=== PATIENT | female | born 1990 | race Caucasian/White ===

== ENCOUNTER → 2025-05-08 | Outpatient (CLI) | payer OTHER, SELFPAY ==
--- OUTSIDE RECORDS SUMMARY | 2025-05-08 09:06 | XMS RPT_ITS | CCD ---
Author Organization [facility] Care Team Providers Care Overcoiler Name Role Phone Unavailable Primary Care Provider Eusebia Lake DO Primary Care Provider [phone] ELENA MONACO, DR SINGH Primary Care Physician [phone] SAGE RODRIGUES Attending Unavai lisa PARKER DO, DR SINGH Primary Care Unavaila Eusebia Orosco DO Primary Care Provider [phone] EUSEBIA PARKER Primary Care Unavailable CHINTAN DEAN Attending Unavailable HELADIO BOO Referring Unavailable HELADIO BOO Referring Unavailable EUSEBIA PARKER Primary Care Unavailable CELIO CAMARENA Attending Unavailable HELADIO BOO Referring Unavailable EUSEBIA PARKER Primary Care Unavailable CELIO CAMARENA Attending Unavailable HELADIO BOO Referring Unavailable EUSEBIA PARKER Primary Care Unavailable CELIO CAMARENA Attending Unavailable EUSEBIA PARKER Primary Care Unavailable CHINTAN DEAN Attending Unavailable HELADIO BOO Referring Unavailable Care Physician, No Primary Referring Unava ilable Katie Hidalgo Attending Unavailable Care Physician, No Primary Primary Care Unava ilable Care Physician, No Primary Primary Care Unava ilable Assessment, Health Risk Attending Abiola SOUZA, HONEY Banda Attending Claribel jaclyn PARKER DO, DR SINGH Primary Care Unavaila sourav PARKER DO, DR SINGH Primary Care Unavaila HELADIO Jenkins DO Admitting Unavailab HELADIO Buckley DO Attending Unavailab adonis VÁZQUEZ DO, KRISTIN Attending Unavailable ELENA MONACO, DR SINGH Primary Care Unavaila sourav PARKER DO, DR SINGH Primary Care Unavailflorence SOUZA, HONEY Banda Attending Claribel vaEusebia Zhou DO Primary Care Provider [phone] EUSEBIA PARKER Primary Care Unavailable SEAN DOMÍNGUEZ Attending Unavailable EUSEBIA PARKER Primary Care Unavailable JOEL PERERA Attending Unavailable EUSEBIA PARKER Primary Care Unavailable EUSEBIA PARKER Attending Unavailable Medications Current Medications Medication Drug Class(es) Dates Sig (Normalized) Sig (Original) calcium carbonate 400 mg / magnesium carbonate 200 mg oral tablet (2 sources) Start: 07-26-2024 take 1 tablet by mouth three times daily at mealtime calcium carbonate-magnesi um carbonate 200 mg-400 mg oral tablet Dose = 1 tab(s), Oral, TID, with meals, # 150 tab(s), 0 Refill(s) Start Date: 07/26/24 Status: Ordered Quantity: 150.0 Unit: tab(s) Repeat number: 1 cefuroxime 250 mg oral tablet (2 sources) Cephalosporin Antibacterial Start: 03-23-2025 End: 03-30-2025 take 1 tablet by mouth twice daily cefuroxime (Ceftin) 250 MG tablet Indications: Non-recurrent acute suppurative otitis media of left ear without spontaneous rupture of tympanic membrane Take 1 tablet (250 mg) by mouth 2 times daily for 7 days. 14 tablet 03/23/2025 03/30/2025 Active cephalexin 500 mg oral capsule (1 source) Cephalosporin Antibacterial Start: 08-10-2024 End: 08-17-2024 cephalexin 500 mg oral capsule Dose : 500 mg = 1 cap(s), Oral, QID, X 7 day(s), # 28 cap(s), 0 Refill(s), 08/17/24 8:00:00 AM EST, 119 Start Date: 08/10/24 Stop Date: 08/17/24 Status: Ordered Quantity: 28.0 Unit: cap(s) Repeat number: 1 docusate sodium 100 mg oral capsule (2 sources) Start: 07-27-2024 Colace 100 mg oral capsule Dose : 100 mg = 1 cap(s), Oral, BID, PRN Constipation, # 180 cap(s), 0 Refill(s), Pharmacy: [facility]/pharmacy #[id number], 163.5, cm, 07/26/24 3:48:00 EST, Height, kg, 07/26/24 3:48:00 EST, Dosing Weight Start Date: 07/27/24 Status: Ordered Quantity: 180.0 Unit: cap(s) Repeat number: 1 ferrous sulfate 325 mg oral tablet (2 sources) Start: 07-26-2024 ferrous sulfate 325 mg (65 mg elemental iron) oral tablet Dose : 325 mg = 1 tab(s), Oral, BID, # 100 tab(s), 0 Refill(s) Start Date: 07/26/24 Status: Ordered Quantity: 100.0 Unit: tab(s) Repeat number: 1 ibuprofen 600 mg oral tablet (2 sources) Nonsteroidal Anti-inflammatory Drug Start: 07-27-2024 End: 09-17-2024 IBU 600 mg oral tablet Dose : 600 mg = 1 tab(s), Oral, QID, # 40 tab(s), 0 Refill(s), 09/17/24 11:01:00 AM EST, Pharmacy: [facility]/pharmacy #[id number], 163.5, cm, 07/26/24 3:48:00 EST, Height, kg, 07/26/24 3:48:00 EST, Dosing Weight Start Date: 07/27/24 Stop Date: 09/17/24 Status: Ordered Quantity: 40.0 Unit: tab(s) Repeat number: 1 Magnesium (5 sources) Start: 10-15-2023 Magnesium 125 MG capsule 10/15/2023 Active Start: 10-15-2023 Magnesium 125 MG capsule Multiple Vitamin (MULTI-AV MIN DAILY PO) (5 sources) Multiple Vitamin (MULTI-VITAMIN DAILY PO) Take by mouth. Active Multiple Vitamin (MULTI-VITAMIN DAILY PO) Take by mouth. 0 Active AD oral tablet (2 sources) Start: 07-26-2024 take 1 tablet by mouth once daily AD oral tablet Dose = 1 tab(s), Oral, Daily, # 30 tab(s), 0 Refill(s) Start Date: 07/26/24 Status: Ordered Quantity: 30.0 Unit: tab(s) Repeat number: 1 Vitamin D with Minerals oral tablet (2 sources) Start: 07-26-2024 take 1 tablet by mouth once daily Vitamin D with Minerals oral tablet Dose = 1 tab(s), Oral, qDay, # 30 tab(s), 0 Refill(s) Start Date: 07/26/24 Status: Ordered Quantity: 30.0 Unit: tab(s) Repeat number: 1 Completed/Discontinued Medications Medication Drug Class(es) Dates Sig (Normalized) Sig (Original) 24 hr buPROPion hydrochloride 150 mg extended release oral tablet (4 sources) Aminoketone Start: 12-28-2022 End: 01-03-2024 take 1 tablet by mouth once daily in the morning buPROPion XL (Wellbutrin XL) 150 MG 24 hr tablet Indications: Recurrent major depressive disorder, in full remission (HCC) Take 1 tablet (150 mg) by mouth every morning. Do not crush, chew, or split. 30 tablet 0 12/28/2022 01/03/2024 Discontinued (Med list cleanup) Start: 06-30-2022 End: 11-02-2022 take 1 tablet by mouth once daily in the morning buPROPion XL (Wellbutrin XL) 300 MG 24 hr tablet Indications: Moderate episode of recurrent major depressive disorder (HCC) take 1 tablet by mouth every morning 90 tablet 2 11/02/2022 Active traZODone hydrochloride 50 mg oral tablet (4 sources) Serotonin Reuptake Inhibitor Start: 12-28-2022 End: 01-03-2024 take 1 tablet by mouth once daily traZODone (Desyrel) 50 MG tablet Indications: Psychophysiological insomnia Take 1 tablet (50 mg) by mouth Nightly. 90 tablet 2 12/28/2022 01/03/2024 Discontinued (Med list cleanup) Start: 06-01-2022 End: 12-04-2022 take 1 tablet by mouth once daily in the evening traZODone (Desyrel) 50 MG tablet Indications: Psychophysiological insomnia take 1 tablet by mouth every evening 90 tablet 2 12/04/2022 Active Problems Problem Classification Problem Date Documented Date Episodic/Chronic Disorders of teeth and jaw (2 sources) Pain of left temporomandibular joint; Translations: [Arthralgia of left temporomandibular joint] Onset: 03-11-2025 03-11-2025 Episodic Liveborn (1 source) Born by normal vaginal delivery; Translations: [Single liveborn infant, delivered vaginally] Onset: 07-29-2024 Episodic Miscellaneous mental health disorders (8 sources) Psychophysiologic insomnia; Translations: [Psychophysiologic insomnia] Onset: 06-30-2022 06-30-2022 Chronic Mood disorders (8 sources) Recurrent major depressive episodes, moderate ; Translations: [Major depressive disorder, recurrent, moderate] Onset: 06-30-2022 Chronic Nutritional deficiencies (7 sources) Vitamin D deficiency; Translations: [Vitamin D deficiency, unspecified] Onset: 08-24-2017 05-26-2022 Chronic Other complications of (1 source) Excessive growth affecting management of mother; Translations: [Maternal care for excessive growth, third trimester, fetus 1] Onset: 07-26-2024 Episodic Other female genital disorders (1 source) Noninflammatory disorder of the vagina; Translations: [Other specified noninflammatory disorders of vagina] Onset: 08-09-2024 Episodic Other and delivery including normal (5 sources) Delivery normal; Translations: [Encounter for full-term uncomplicated delivery] Onset: 07-26-2024 Episodic Comment on above: System added from do cumentation. Status documented as Yes on Admission Other screening for suspected conditions (not mental disorders or infectious disease) (6 sources) Patient encounter status; Translations: [Encounter for screening for malignant neoplasm of skin] Onset: 01-01-2025 01-17-2024 Episodic Otitis media and related conditions (4 sources) Acute suppurative otitis media without spontaneous rupture of ear drum; Translations: [Acute suppurative otitis media without spontaneous rupture of ear drum, left ear] Onset: 03-23-2025 03-23-2025 Episodic Residual codes; unclassified (1 source) Gestation period, 40 weeks; Translations: [40 weeks gestation of ] Onset: 07-26-2024 Episodic Residual codes; unclassified (1 source) RhD negative; Translations: [Unspecified blood type, Rh negative] Onset: 07-26-2024 Episodic Urinary tract infections (1 source) Urinary tract infectious disease; Translations: [Urinary tract infection, site not specified] Onset: 08-09-2024 Episodic Results Test Name Value Interpretation Reference Range Facility 36on 03-23-2025 36 Noted Normal [facility] 36 S: Patient spoke wit h [facility] nurse regarding lt ear pain and muffled B: Onset of symptoms/concern start of 3rd week A: She states she went to initially and they told her related to TMJ. Patient reports she does have a yellow drainage from that ear since last week. Patient denies any URI symptoms. R: POD appt today with Dr. Perera. Address provided to patient. Advised nothing inside the ear. Patient understands care advice. No further needs at this time. Patient instructed to call back with new or worsening symptoms. Reason for Disposition Pus or cloudy discharge from ear canal Protocols used: Ear - [id number] Normal [facility] Office Visiton 03-23-2025 Follow-up visit [id number] AnaJoanna barraza Neno 1990 F Date Provider Department [place] 03/23/2025 [id number][facility] Family History Problem Relation Age of Onset Pneumonia Father COPD Father Hypertension Father No Known Problems Brother Colon cancer Mother Cancer Mother Cancer Maternal Grandmother 50 Comments: Hodgkins Lymphoma Diabetes Father's Brother No Known Problems Sister Family Status - Relation Status Age at Father Brother Alive Mother Alive Maternal Grandmother Father's Brother Sister Alive Level of Service:26924 [place] OFFICE/OUTPATIENT ESTABLISHED LOW MDM 20 MIN Reason for Visit and Comments: Earache [[id number]] Normal [facility] Progress Noteon 03-23-2025 Progress Note [facility] [address] [place] [address] Dept: [phone] Dept Loc: [phone] Visit type: Established Patient Reason for Visit: Earache Assessment and Plan 1. Non-recurrent acute suppurative otitis media of left ear without spontaneous rupture of tympanic membrane - cefuroxime (Ceftin) 250 MG tablet; Take 1 tablet (250 mg) by mouth 2 times daily for 7 days., Starting Sun03/23/2025, Until Sun03/30/2025, Ana M Marshall was seen today for earache. Diagnoses and all orders for this visit: Non-recurrent acute suppurative otitis media of left ear without spontaneous rupture of tympanic membrane (Primary) - cefuroxime (Ceftin) 250 MG tablet; Take 1 tablet (250 mg) by mouth 2 times daily for 7 days. Pt has otitis media-left ear. Sent in ceftin. Rest, push fluids, call if no better Follow up if symptoms worsen or fail to improve. Subjective Earache Associated symptoms include ear discharge and hearing loss. Pertinent negatives include no abdominal pain, coughing, diarrhea, headaches, rhinorrhea, sore throat or vomiting. Pt is here for ear pain C/o left ear pain x 16 days Has some drainage with yellow drainage, mostly at night and when she wakes up in the morning No fever No tinnitus but has some decrease hearing in the left No sore throat, rhinitis. Has chronic sinus congestion in the morning She had a baby 8 months ago. She is pumping but has low supply and the baby is getting mostly formula She doesn't think she's Review of Systems Constitutional: Negative for chills and fever. HENT: Positive for ear discharge, ear pain and hearing loss. Negative for rhinorrhea, sneezing and sore throat. Respiratory: Negative for cough and shortness of breath. Cardiovascular: Negative for chest pain and leg swelling. Gastrointestinal: Negative for abdominal pain, constipation, diarrhea, nausea and vomiting. Genitourinary: Negative for dysuria and frequency. Musculoskeletal: Negative for arthralgias and back pain. Neurological: Negative for dizziness, syncope and headaches. Psychiatric/Behaviora l: Negative for dysphoric mood. The patient is not nervous/anxious. Allergies[1] Current Medications[2] Problem List[3] Social History Tobacco Use Smoking status: Never Smokeless tobacco: Never Substance Use Topics Alcohol use: Not Currently Alcohol/week: 2.0 standard drinks of alcohol Surgical History[4] Family History[5] Health Maintenance Topic Date Due HIV Screening Never done MMR Vaccines (1 of 1 - Standard series) Never done Varicella Vaccines (1 of 2 - 13+ 2-dose series) Never done Hepatitis C Screening Never done DTaP/Tdap/Td Vaccines (1 - Tdap) Never done Hepatitis B Vaccines (1 of 3 - 19+ 3-dose series) Never done Cervical Cancer Screening Never done COVID-19 Vaccine ( - season) Never done Influenza Vaccine (1) 04/13/2025 Depression Monitoring 07/04/2025 Zoster Vaccines (1 of 2) 02/08/2038 RSV Immunization for Adults (1 - 1-dose 75+ series) 02/08/2063 RSV Immunization under 20 Months Aged Out HIB Vaccines Aged Out IPV Vaccines Aged Out Hepatitis A Vaccines Aged Out Meningococcal Vaccine Aged Out Rotavirus Vaccines Aged Out HPV Vaccines Aged Out Pneumococcal Vaccine: Pediatrics (0 to 5 Years) and At-Risk Patients (6 to 49 Years) Aged Out Meningococcal B Vaccine Aged Out Objective BP 139/84 Pulse 86 SpO2 97% Physical Exam Constitutional: General: She is not in acute distress. HENT: Right Ear: Tympanic membrane normal. Ears: Comments: Left TM with bulging and cloudiness with yellow discoloration at the left lower part of the TM. No TM rupture Mouth/Throat: Mouth: Mucous membranes are moist. Pharynx: No oropharyngeal exudate. Cardiovascular: Rate and Rhythm: Normal rate and regular rhythm. Pulses: Normal pulses. Heart sounds: Normal heart sounds. Pulmonary: Effort: Pulmonary effort is normal. Breath sounds: Normal breath sounds. No wheezing. Abdominal: General: Abdomen is flat. Bowel sounds are normal. Palpations: Abdomen is soft. Tenderness: There is no abdominal tenderness. Musculoskeletal: Right lower leg: No edema. Left lower leg: No edema. Neurological: Mental Status: She is alert. Data Reviewed and Summarized Labs: Lab Results Component Value Date ALT 01/03/2024 AST 01/03/2024 Imaging/Testing: Joel Perera MD [1] No Known Allergies [2] Current Outpatient Medications Medication Sig Dispense Refill Magnesium 125 MG capsule Multiple Vitamin (MULTI-VITAMIN DAILY PO) Take by mouth. cefuroxime (Ceftin) 250 MG tablet Take 1 tablet (250 mg) by mouth 2 times daily for 7 days. 14 tablet 0 No current facility-administered medications for this visit. [3] Patient Active Problem List Diagnosis Vitamin D deficiency Moderate episode of (more content not included)... Normal [facility] CNOVon 03-11-2025 CNOV Office Visit ([facility]) JOANNA FAIR ([id number]) 1990 F Date Time Provider Department 03/11/25 5:30 PM SEAN DOMÍNGUEZ During your visit today, we recorded the following information about you: Temperature Pulse Respiration Blood pressure 98.8 degrees 79/minute 18/minute 130/76 Weight Last Period 113 kg 07/25/25 Sean Domínguez MD 03/11/2025 5:56 PM Signed [facility] Subjective Joanna Fair is a 35 year old female. Patient presents with: Ear Pain: Left ear pain x 4 days Left ear pain: Duration: 5 days Location: left ear Character: aching and throbbing Radiation: to the jaw/eye Aggravating: chewing, touching Relieving: Pain relievers: Motrin Associated: muffled hearing Pertinent negatives: Denies nasal congestion, rhinorrhea, sore throat, fever, chills, otorrhea No recent swimming. Ear Pain Review of Systems Objective BP 130/76 Pulse 79 Temp 37.1 ?C (98.8 ?F) Resp 18 Wt 113 kg (249 lb 1.9 oz) LMP 03/06/2025 SpO2 98% Physical Exam Constitutional: General: She is not in acute distress. HENT: Right Ear: Tympanic membrane and ear canal normal. Left Ear: Tympanic membrane and ear canal normal. Tenderness (Tender left temporomandibular joint) present. Nose: No congestion. Right Sinus: No maxillary sinus tenderness or frontal sinus tenderness. Left Sinus: No maxillary sinus tenderness or frontal sinus tenderness. Mouth/Throat: Mouth: Mucous membranes are moist. Pharynx: Posterior oropharyngeal erythema present. No oropharyngeal exudate. Eyes: Extraocular Movements: Extraocular movements intact. Conjunctiva/sclera: Conjunctivae normal. Pupils: Pupils are equal, round, and reactive to light. Cardiovascular: Rate and Rhythm: Normal rate and regular rhythm. Heart sounds: No murmur heard. Pulmonary: Effort: No respiratory distress. Breath sounds: No wheezing, rhonchi or rales. Musculoskeletal: Cervical back: Neck supple. Lymphadenopathy: Cervical: No cervical adenopathy. Neurological: Mental Status: She is alert. {ASSESSMENT/PLAN: 1. Arthralgia of left temporomandibular joint - ICD9: 524.62, ICD10: M26.622 Normal canal and middle ear exam. Suspect TMJ arthralgia. Treat with ibuprofen (breast feeding, may reduce milk production). Sean Domínguez MD Differential Diagnoses - TMJ arthralgia is more likely for the following reason(s): suggested by HANDP - Eustachian tube dysfunction - Otitis media/externa is less likely for the following reason(s): Normal exam Procedures Allergies As of Date: 03/11/2025 (Not on File) Date Reviewed: 03/11/2025 Reviewed by: Jacque Isidro MA - Fully Assessed Reason for Visit: Ear Pain [817] Cmt: Left ear pain x 4 days Primary Visit Diagnosis:Arthralgia of left temporomandibular joint [M26.622] Problem List As Of Date: 03/11/2025 (None) Level of Service: OFFICE/OUTPATIENT [facility] 30 MINUTES [24636] Encounter Status:Closed by SEAN DOMÍNGUEZ on 03/11/25 Normal [facility] Office Visiton 01-01-2025 Follow-up visit [id number] Joanna Fair 1990 F Date Provider Department Center 01/01/2025 EUSEBIA RAYO [facility] Family History Problem Relation Age of Onset Pneumonia Father COPD Father Hypertension Father No Known Problems Brother Colon cancer Mother Cancer Mother Cancer Maternal Grandmother 50 Comments: Hodgkins Lymphoma Diabetes Father's Brother No Known Problems Sister Family Status - Relation Status Age at Father Brother Alive Mother Alive Maternal Grandmother Father's Brother Sister Alive Level of Service:91486 [place] PERIODIC PREVENTIVE MED EST PATIENT 40-64YRS Reason for Visit and Comments: Annual Exam [83] Normal [facility] Progress Noteon 01-01-2025 Progress Note [facility] - [address] [facility] [address] Visit type: Established Patient Reason for Visit: Annual Exam Assessment and Plan Diagnoses and all orders for this visit: Well adult exam Screening for diabetes mellitus - Hemoglobin A1c; Future - Basic metabolic panel; Future Screening, lipid - Lipid panel; Future Encouraged avoidance of tobacco and alcohol, safe sexual practice. Healthy diet with plenty of fruits, vegetables, whole grains, and lean proteins. Exercise 3-5 times per week for 30-45 minutes. Wear seatbelts. Wear sunscreen. Reviewed age appropriate screening tests. No follow-ups on file. 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 HENT: Negative for congestion, ear pain, hearing loss, postnasal drip, sore throat and trouble swallowing. Eyes: Negative for discharge, itching and visual disturbance. Respiratory: Negative for cough, shortness of breath and wheezing. Cardiovascular: Negative for chest pain, palpitations and leg swelling. Gastrointestinal: Negative for abdominal pain, constipation, diarrhea, nausea and vomiting. Endocrine: Negative for cold intolerance, heat intolerance, polydipsia, polyphagia and polyuria. Genitourinary: Negative for difficulty urinating, frequency, urgency, vaginal bleeding, vaginal discharge and vaginal pain. Musculoskeletal: Negative for arthralgias, back pain, joint swelling and myalgias. Skin: Negative for color change, rash and wound. Neurological: Negative for dizziness, tremors, seizures, speech difficulty, weakness, numbness and headaches. Hematological: Negative for adenopathy. Does not bruise/bleed easily. Psychiatric/Behaviora l: Negative for agitation, decreased concentration, dysphoric mood and sleep disturbance. The patient is not nervous/anxious. Allergies[1] Current Medications[2] Medical History[3] Social History[4] Surgical History[5] Surgical History[6] Family History[7] Objective BP 110/80 Pulse 97 Temp 36.8 ?C (98.2 ?F) (Temporal) Ht 5' 4 (1.626 m) Wt 243 lb 12.8 oz (111 kg) SpO2 97% BMI 41.85 kg/m? Physical Exam Vitals and nursing note reviewed. Constitutional: General: She is not in acute distress. Appearance: Normal appearance. She is not ill-appearing. HENT: Head: Normocephalic and atraumatic. Right Ear: Tympanic membrane, ear canal and external ear normal. Left Ear: Tympanic membrane, ear canal and external ear normal. Nose: Nose normal. Mouth/Throat: Mouth: Mucous membranes are dry. Eyes: Extraocular Movements: Extraocular movements intact. Conjunctiva/sclera: Conjunctivae normal. Pupils: Pupils are equal, round, and reactive to light. Cardiovascular: Rate and Rhythm: Normal rate and regular rhythm. Heart sounds: No murmur heard. No friction rub. Pulmonary: Effort: Pulmonary effort is normal. No respiratory distress. Breath sounds: Normal breath sounds. No stridor. No wheezing, rhonchi or rales. Chest: Chest wall: No tenderness. Abdominal: General: Abdomen is flat. Bowel sounds are normal. There is no distension. Palpations: Abdomen is soft. There is no mass. Tenderness: There is no abdominal tenderness. There is no guarding or rebound. Hernia: No hernia is present. Musculoskeletal: General: Normal range of motion. Cervical back: Normal range of motion and neck supple. Right lower leg: No edema. Left lower leg: No edema. Skin: General: Skin is warm and dry. Neurological: General: No focal deficit present. Mental Status: She is alert and oriented to person, place, and time. Psychiatric: Mood and Affect: Mood normal. Behavior: Behavior normal. Thought Content: Thought content normal. Judgment: Judgment normal. Data Reviewed POCT: Labs: Imaging/Testing: Chart Clean Up: There are no discontinued medications. Eusebia Parker, 01/01/2025 2:53 PM [1] No Known Allergies [2] Current Outpatient Medications: Magnesium 125 MG capsule, , Disp: , Rfl: Multiple Vitamin (MULTI-VITAMIN DAILY PO), Take by mouth., Disp: , Rfl: [3] Past Medical History: Diagnosis Date Anxiety 06/2021 Depression 06/2021 10/15/23 [4] Social History Socioeconomic History Marital status: Tobacco Use Smoking status: Never Smokeless tobacco: Never Substance and Sexual Activity Alcohol use: Not Currently Alcohol/week: 2.0 standard drinks of alcohol Drug use: No Sexual activity: Yes Partners: Male control/protection: Condom Male Comment: Currently [5] Past Surgical History: Procedure Laterality Date GYNECOLOGIC CRYOSURGERY 02/15/2012 POLYPECTOMY 2011 (more content not included)... Normal [facility] CTPCRon 08-11-2024 C. trachomatis Interp Normal See CT Interp N [facility] Comment on above: Result Comment: C. t rachomatis DNA not detected. Specimen is presumptive negative for C. trachomatis. A negative result does not preclude C. trachomatis infection because results depend on adequate specimen collection, absence of inhibitors, and sufficient DNA to be detected. See CT Interp N Performed By: #### N GPCR1, CTPCR ####[place] [address] C.trachomatis PCR Negative Normal Negative [facility] Comment on above: Result Comment: Caballero sport tube received with two swabs. Review collection procedure. Inappropriate collection may cause aberrant results. Molecular (PCR) assay performed on the Dandy Jazmin 4800 system. Performed By: #### N GPCR1, CTPCR ####[place] [address] Chlam Source Cervix Normal [facility] Comment on above: Performed By: #### N GPCR1, CTPCR ####[place] [address] [id number] 08-11-2024 GC PCR Source Cervix Normal [facility] Comment on above: Result Comment: Caballero sport tube received with two swabs. Review collection procedure. Inappropriate collection may cause aberrant results. Performed By: #### N GPCR1, CTPCR ####[place] [address] N. gonorrhoeae (PCR) Negative Normal Negative [facility] Comment on above: Result Comment: Mole cular (PCR) assay performed on the Dandy Jazmin 4800 System. Performed By: #### N GPCR1, CTPCR ####[place] [address] N. gonorrhoeae Interp Normal See NG Interp N [facility] Comment on above: Result Comment: N. g onorrhoeae DNA not detected. Specimen is presumptive negative for N. gonorrhoeae. A negative result does not preclude Neisseria gonorrhoeae infection because results depend on adequate specimen collection, absence of inhibitors, and sufficient DNA to be detected. See NG Interp N Performed By: #### N GPCR1, CTPCR ####[place] [address] .Auto Diffon 08-09-2024 Basophil, Absolute 0.0 10 3/mcL Normal 0.0-0.2 [facility] Comment on above: Performed By: #### G FR, MORPH, BMP, MDW, CBC, ANEU, ADIFF #### [facility] [address] [place], [place] [address] Basophils/100 WBC (Bld) 0.2 % Normal 0.0-2.5 [facility] Comment on above: Performed By: #### G FR, MORPH, BMP, MDW, CBC, ANEU, ADIFF #### [address] [address] Eosinophil, Absolute 0.0 10 3/mcL Normal 0.0-0.7 [facility] Comment on above: Performed By: #### G FR, MORPH, BMP, MDW, CBC, ANEU, ADIFF #### [address] [address] Eosinophils/100 WBC (Bld) 0.3 % Normal 0.0-7.0 [facility] Comment on above: Performed By: #### G FR, MORPH, BMP, MDW, CBC, ANEU, ADIFF #### [address] [address] Lymphocyte, Absolute 1.7 10 3/mcL Normal 0.9-4.3 [facility] Comment on above: Performed By: #### G FR, MORPH, BMP, MDW, CBC, ANEU, ADIFF #### [address] [address] Lymphocytes/100 WBC (Bld) 11.9 % Low 20.0-40.0 [facility] Comment on above: Performed By: #### G FR, MORPH, BMP, MDW, CBC, ANEU, ADIFF #### [address] [address] Monocyte, Absolute 1.5 10 3/mcL High 0.1-1.4 [facility] Comment on above: Performed By: #### G FR, MORPH, BMP, MDW, CBC, ANEU, ADIFF #### [address] [address] Monocytes/100 WBC (Bld) 10.2 % Normal 2.0-13.0 [facility] Comment on above: Performed By: #### G FR, MORPH, BMP, MDW, CBC, ANEU, ADIFF #### [address] [address] Neutrophils/100 WBC (Bld) 77.4 % High 50.0-75.0 [facility] Comment on above: Performed By: #### G KLAUDIA ROJAS BMP, VLADIMIR, CBC, ANEU, ADIFF #### [place] [address] [place], [place] [address] .GFRon 08-09-2024 GFR 90 ml/min/1.73sqm Normal [facility] Comment on above: Result Comment: GFR Population mean for , Non- Americans Ages 20-29 = 116 mL/min/1.73 sq.m. Ages 30-39 = 107 mL/min/1.73 sq.m. Ages 40-49 = 99 mL/min/1.73 sq.m. Ages 50-59 = 93 mL/min/1.73 sq.m. Ages 60-69 = 85 mL/min/1.73 sq.m. Ages 70+ = 75 mL/min/1.73 sq.m. Chronic Kidney Disease: Less than 60 mL/min/1.73 square meters End Stage Renal Disease: Less than 15 mL/min/1.73 square meters Performed By: #### G , KLAUDIA, JOSEPH, VLADIMIR, CBC, ANEU, ADIFF #### [address] [address] GFR Non- 75 ml/min/1.73sqm Normal [facility] Comment on above: Result Comment: GFR Population mean for , Non- Americans Ages 20-29 = 116 mL/min/1.73 sq.m. Ages 30-39 = 107 mL/min/1.73 sq.m. Ages 40-49 = 99 mL/min/1.73 sq.m. Ages 50-59 = 93 mL/min/1.73 sq.m. Ages 60-69 = 85 mL/min/1.73 sq.m. Ages 70+ = 75 mL/min/1.73 sq.m. Chronic Kidney Disease: Less than 60 mL/min/1.73 square meters End Stage Renal Disease: Less than 15 mL/min/1.73 square meters Performed By: #### G , KLAUDIA, JOSEPH, VLADIMIR, CBC, ANEU, ADIFF #### [place] [address] .MDWon 08-09-2024 Monocyte Distribution Width 24.63 High 0.00-20.00 [facility] Comment on above: Result Comment: The predictive value of MDW for identifying sepsis in patients with hematological abnormalities has not been established Performed By: #### G FR, MORPH, BMP, MDW, CBC, ANEU, ADIFF #### [place] [address] .Morphon 08-09-2024 Platelet Estimate Normal Normal [facility] Comment on above: Performed By: #### G FR, MORPH, BMP, MDW, CBC, ANEU, ADIFF #### [place] [address] .NEUABSon 08-09-2024 Neutrophil, Absolute 11.2 10 3/mcL High 2.3-8.1 [facility] Comment on above: Performed By: #### G FR, MORPH, BMP, MDW, CBC, ANEU, ADIFF #### [place] [address] .Urinalysis Microscopic (AO) on 08-09-2024 UA Bacteria 4+ /hpf Abnormal [facility] Comment on above: Performed By: #### U A, UAMICAO ####[place] [address] UA RBC 0-5 Abnormal None Seen [facility] Comment on above: Performed By: #### U A, UAMICAO ####[place] [address] UA Squam Epithelial 0-5 Abnormal None Seen [facility] Comment on above: Performed By: #### U A, UAMICAO ####[place] [address] UA WBC LOADED Abnormal None Seen [facility] Comment on above: Performed By: #### U A, UAMICAO ####[place] [address] BMPon 08-09-2024 BUN/Creatinine Ratio 24 ratio Normal 7-27 [facility] Comment on above: Performed By: #### G FR, KLAUDIA, BMP, MDW, CBC, ANEU, ADIFF #### [address] [address] Calcium [Mass/Vol] 8.8 mg/dL Normal 8.4-10.2 [facility] Comment on above: Performed By: #### G FR, MORPH, BMP, MDW, CBC, ANEU, ADIFF #### [address] [address] Chloride [Moles/Vol] 104 mmol/L Normal 98-107 [facility] Comment on above: Performed By: #### G FR, KLAUDIA, BMP, MDW, CBC, ANEU, ADIFF #### [address] [address] CO2 [Moles/Vol] 27 mmol/L Normal 22-29 [facility] Comment on above: Performed By: #### G FR, KLAUDIA, BMP, MDW, CBC, ANEU, ADIFF #### [address] [address] Creatinine [Mass/Vol] 0.86 mg/dL Normal 0.55-1.02 [facility] Comment on above: Result Comment: Test ing performed on Siemens Dimension EXL analyzer using a modified kinetic Constance technique. Performed By: #### G FR, KLAUDIA, BMP, MDW, CBC, ANEU, ADIFF #### [address] [address] Electrolyte Balance 7.0 mEq/L Normal 4.0-15.0 [facility] Comment on above: Performed By: #### G FR, KLAUDIA, BMP, MDW, CBC, ANEU, ADIFF #### [address] [address] Glucose [Mass/Vol] 113 mg/dL High 70-105 [facility] Comment on above: Performed By: #### G FR, MORPH, BMP, MDW, CBC, ANEU, ADIFF #### [address] [address] Potassium [Moles/Vol] 4.7 mmol/L Normal 3.5-5.1 [facility] Comment on above: Performed By: #### G FR, MORPH, BMP, MDW, CBC, ANEU, ADIFF #### [address] [address] Sodium [Moles/Vol] 138 mmol/L Normal 136-145 [facility] Comment on above: Performed By: #### G FR, MORPH, BMP, MDW, CBC, ANEU, ADIFF #### [address] [address] Urea nitrogen [Mass/Vol] 21 mg/dL High 7-18 [facility] Comment on above: Performed By: #### G FR, MORPH, BMP, MDW, CBC, ANEU, ADIFF #### [address] [address] CBCon 08-09-2024 Erythrocyte distribution width (RBC) [Ratio] 14.5 % Normal 11.5-15.5 [facility] Comment on above: Performed By: #### G FR, MORPH, BMP, MDW, CBC, ANEU, ADIFF #### [address] [address] Hematocrit (Bld) [Volume fraction] 30.0 % Low 34.0-46.0 [facility] Comment on above: Performed By: #### G FR, MORPH, BMP, MDW, CBC, ANEU, ADIFF #### [address] [address] Hgb 10.1 G/dL Low 12.0-16.0 [facility] Comment on above: Performed By: #### G FR, MORPH, BMP, MDW, CBC, ANEU, ADIFF #### [address] [address] MCH (RBC) [Entitic mass] 28.9 pg Normal 27.0-33.0 [facility] Comment on above: Performed By: #### G FR, MORPH, BMP, MDW, CBC, ANEU, ADIFF #### [address] [address] MCHC 33.5 G/dL Normal 32.0-36.0 [facility] Comment on above: Performed By: #### G FR, MORPH, BMP, MDW, CBC, ANEU, ADIFF #### [address] [address] MCV (RBC) [Entitic vol] 86.3 fL Normal 80.0-99.0 [facility] Comment on above: Performed By: #### G FR, MORPH, BMP, MDW, CBC, ANEU, ADIFF #### [place] [address] Platelet 363 10 3/mcL Normal 150-450 [facility] Comment on above: Performed By: #### G FR, MORPH, BMP, MDW, CBC, ANEU, ADIFF #### [place] [address] Platelet mean volume (Bld) [Entitic vol] 7.8 fL Normal 6.6-10.5 [facility] Comment on above: Performed By: #### G FR, MORPH, BMP, MDW, CBC, ANEU, ADIFF #### [address] [address] RBC 3.48 10 6/mcL Low 4.10-5.30 [facility] Comment on above: Performed By: #### G FR, MORPH, BMP, MDW, CBC, ANEU, ADIFF #### [address] [address] WBC 14.5 10 3/mcL High 4.5-10.8 [facility] Comment on above: Performed By: #### G FR, MORPH, BMP, MDW, CBC, ANEU, ADIFF #### [place] [address] LABORATORYOrdered By: SYSTEM SYSTEM on 08-09-2024 Basophils (Bld) [#/Vol] 0.0 103/mcL Normal 0.0 - 0.2 10^3/mcL AO Workflow SS Basophils/100 WBC (Bld) 0.2 % Normal 0.0 - 2.5 % AO Workflow SS Calcium [Mass/Vol] 8.8 mg/dL Normal 8.4 - 10. 2 mg/dL AO ADM SS Chloride [Moles/Vol] 104 mmol/L Normal 98 - 10 7 mmol/L AO ADM SS CO2 [Moles/Vol] 27 mmol/L Normal 22 - 29 mmol/L AO ADM SS Creatinine [Mass/Vol] 0.86 mg/dL Normal 0.55 - 1.02 mg/dL AO ADM SS Comment on above: Interpretive Data: T esting performed on Siemens Dimension EXL analyzer using a modified kinetic Constance technique. Electrolyte Balance 7.0 mEq/L Normal 4.0 - 15 .0 mEq/L AO ADM SS Eosinophil, Absolute 0.0 103/mcL Normal 0.0 - 0 .7 10^3/mcL AO Workflow SS Eosinophils/100 WBC (Bld) 0.3 % Normal 0.0 - 7.0 % AO Workflow SS Erythrocyte distribution width (RBC) [Ratio] 14.5 % Normal 11.5 - 15.5 % AO Workflow SS GFR/1.73 sq M.predicted among blacks MDRD (S/P/Bld) [Vol rate/Area] 90 ml/min/1.73sqm Invalid Interpretation Code AO Chemistry S Comment on above: Interpretive Data: GFR Population mean for , Non- Americans Ages 20-29 = 116 mL/min/1.73 sq.m. Ages 30-39 = 107 mL/min/1.73 sq.m. Ages 40-49 = 99 mL/min/1.73 sq.m. Ages 50-59 = 93 mL/min/1.73 sq.m. Ages 60-69 = 85 mL/min/1.73 sq.m. Ages 70+ = 75 mL/min/1.73 sq.m. Chronic Kidney Disease: Less than 60 mL/min/1.73 square meters End Stage Renal Disease: Less than 15 mL/min/1.73 square meters GFR/1.73 sq M.predicted among non-blacks MDRD (S/P/Bld) [Vol rate/Area] 75 ml/min/1.73sqm Invalid Interpretation Code AO Chemistry S Comment on above: Interpretive Data: GFR Population mean for , Non- Americans Ages 20-29 = 116 mL/min/1.73 sq.m. Ages 30-39 = 107 mL/min/1.73 sq.m. Ages 40-49 = 99 mL/min/1.73 sq.m. Ages 50-59 = 93 mL/min/1.73 sq.m. Ages 60-69 = 85 mL/min/1.73 sq.m. Ages 70+ = 75 mL/min/1.73 sq.m. Chronic Kidney Disease: Less than 60 mL/min/1.73 square meters End Stage Renal Disease: Less than 15 mL/min/1.73 square meters Glucose [Mass/Vol] 113 mg/dL High 70 - 105 mg/dL AO ADM SS Hematocrit (Bld) [Volume fraction] 30.0 % Low 34.0 - 46.0 % AO Workflow SS Hemoglobin (Bld) [Mass/Vol] 10.1 G/dL Low 12.0 - 16.0 G/dL AO Workflow SS Lymphocytes (Bld) [#/Vol] 1.7 103/mcL Normal 0.9 - 4.3 10^3/mcL AO Workflow SS Lymphocytes/100 WBC (Bld) 11.9 % Low 20.0 - 40.0 % AO Workflow SS MCH (RBC) [Entitic mass] 28.9 pg Normal 27.0 - 33.0 pg AO Workflow SS MCHC 33.5 G/dL Normal 32.0 - 36.0 G/dL AO Workflow SS MCV (RBC) [Entitic vol] 86.3 fL Normal 80.0 - 99.0 fL AO Workflow SS Monocyte distribution width Auto (Bld) [Entitic vol] 24.63 1 High 0.00 - 20.00 AO Workflow SS Comment on above: Result Comment: The predictive value of MDW for identifying sepsis in patients with hematological abnormalities has not been established Monocytes (Bld) [#/Vol] 1.5 103/mcL High 0.1 - 1.4 10^3/mcL AO Workflow SS Monocytes/100 WBC (Bld) 10.2 % Normal 2.0 - 13.0 % AO Workflow SS Neutrophils (Bld) [#/Vol] 11.2 103/mcL High 2.3 - 8.1 10^3/mcL AO Workflow SS Neutrophils/100 WBC (Bld) 77.4 % High 50.0 - 75.0 % AO Workflow SS Platelet mean volume (Bld) [Entitic vol] 7.8 fL Normal 6.6 - 10.5 fL AO Workflow SS Platelets (Bld) [#/Vol] 363 103/mcL Normal 150 - 450 10^3/mcL AO Workflow SS Potassium [Moles/Vol] 4.7 mmol/L Normal 3.5 - 5.1 mmol/L AO ADM SS RBC (Bld) [#/Vol] 3.48 106/mcL Low 4.10 - 5.3 0 10^6/mcL AO Workflow SS Sodium [Moles/Vol] 138 mmol/L Normal 136 - 145 mmol/L AO ADM SS Urea nitrogen [Mass/Vol] 21 mg/dL High 7 - 18 mg/dL AO ADM SS Urea nitrogen/Creatinine [Mass ratio] 24 ratio Normal 7 - 27 ratio AO ADM SS WBC (Bld) [#/Vol] 14.5 103/mcL High 4.5 - 10.8 10^3/mcL AO Workflow SS LABORATORYOrdered By: Marycruz Maynard on 08-09-2024 Platelets LM Ql (Bld) Normal (08/09/24 4:25 PM) Normal AO Hematology S Appearance (U) Slightly Cloudy *ABN* (08/09/24 4:11 PM) Invalid Interpretation Code Clear AO Auto Urine SS Bacteria LM.HPF (Urine sed) [#/Area] 4 /[HPF] Invalid Interpretation Code AO Auto Urine SS Bilirubin Ql (U) Negative (08/09/24 4:11 PM) Normal Negative AO Auto Urine SS Color (U) Yellow (08/09/24 4:11 PM) Normal AO Auto Urine SS Glucose Test strip (U) [Mass/Vol] Negative Normal Negative AO Auto Urine SS Hemoglobin Auto test strip (U) [Mass/Vol] Small *ABN* (08/09/24 4:11 PM) Invalid Interpretation Code Negative AO Auto Urine SS Ketones Ql (U) Negative Normal Negative AO Auto Ur ine SS UA Leuk Est Moderate *ABN* (08/09/24 4:11 PM) Invalid Interpretation Code Negative AO Auto Urine SS UA Nitrite Positive *ABN* (08/09/24 4:11 PM) Invalid Interpretation Code Negative AO Auto Urine SS UA pH 6.0 (08/09/24 4:11 PM) Normal 5.0 - 8.0 AO Auto Urine SS UA Protein 100 mg/dL Invalid Interpretation Code Negative AO Auto Urine SS UA RBC 0-5 /HPF Invalid Interpretation Code None Seen AO Auto Urine SS UA Spec Grav 1.025 (08/09/24 4:11 PM) Normal 1.015-1.025 AO Auto Urine SS UA Specimen Type Clean Catch (08/09/24 4:11 PM) Normal AO Auto Urine SS UA Squam Epithelial 0-5 /HPF Invalid Interpretation Code None Seen AO Auto Urine SS UA Urobilinogen 0.2 E.U./dL Normal 0.2-1.0 AO Auto Urine SS WBC LM.HPF (Urine sed) [#/Area] LOADED /HPF Invalid Interpretation Code None Seen AO Auto Urine SS UAon 08-09-2024 Color (U) Yellow Normal [facility] Comment on above: Performed By: #### U A, UAMICAO #### [place] [address] Glucose (U) [Mass/Vol] Negative Normal Negative [facility] Comment on above: Performed By: #### U A, UAMICAO #### [place] [address] Ketones Ql (U) Negative Normal Negative [facility] Comment on above: Performed By: #### U A, UAMICAO #### [place] [address] UA Appear Slightly Cloudy Abnormal Clear [facility] Comment on above: Performed By: #### U A, UAMICAO #### [place] [address] UA Blood Small Abnormal Negative [facility] Comment on above: Performed By: #### U A, UAMICAO #### [place] [address] UA Leuk Est Moderate Abnormal Negative [facility] Comment on above: Performed By: #### U A, UAMICAO #### [place] [address] UA Nitrite Positive Abnormal Negative [facility] Comment on above: Performed By: #### U A, UAMICAO #### [place] [address] UA pH 6.0 Normal 5.0 - 8.0 [facility] Comment on above: Performed By: #### U A UAMICAO #### [place] [address] UA Protein 100 mg/dL Abnormal Negative [facility] Comment on above: Performed By: #### U A UAMICAO #### [place] [address] UA Spec Grav 1.025 Normal 1.015-1.025 [facility] Comment on above: Performed By: #### U A UAMICAO #### [place] [address] UA Specimen Type Clean Catch Normal [facility] Comment on above: Performed By: #### U A UAMICAO #### [place] [address] UA Urobilinogen 0.2 E.U./dL Normal 0.2-1.0 [facility] Comment on above: Performed By: #### U A UAMICAO #### [place] [address] Urobilinogen (U) [Mass/Vol] Negative Normal Negative [facility] Comment on above: Performed By: #### U A UAMICAO #### [address] 07-28-2024 Hematocrit (Bld) [Volume fraction] 24.9 % Low 34.0-46.0 [facility] Comment on above: Performed By: #### H H ####[place] [address] Hgb 8.4 G/dL Low 12.0-16.0 [facility] Comment on above: Performed By: #### H H ####[place] [address] LABORATORYOrdered By: SYSTEM SYSTEM on 07-28-2024 Hematocrit (Bld) [Volume fraction] 24.9 % Low 34.0 - 46.0 % AO Workflow SS Hemoglobin (Bld) [Mass/Vol] 8.4 G/dL Low 12.0 - 16.0 G/dL AO Workflow SS RPRon 07-28-2024 Reagin Ab RPR Ql (S) Non-Reactive Normal Non-Reactive [facility] Comment on above: Result Comment: The RPR test is a non-treponemal assay useful as an aid in the diagnosis of primary and secondary syphilis. It converts to positive generally within 2 weeks after the appearance of a lesion. This test is also useful for monitoring response to antibiotic therapy. A positive RPR screening test will be followed by the FTA ABS test. False positive RPR tests may occur in 1) patients with underlying autoimmune disorders, 2) elderly patients, 3) , and 4) other conditions with abnormal serum globulins. Performed By: #### A YAIR, ADIFF, CBC, ANEU, ABSGEL ####[place] [address]#### RPR ####[place] [address] .Auto Diffon 07-26-2024 Basophil, Absolute 0.1 10 3/mcL Normal 0.0-0.2 [facility] Comment on above: Performed By: #### A MAKEL, ADIFF, CBC, ANEU, ABSGEL ####[place] [address]#### RPR ####[place] [address] Basophils/100 WBC (Bld) 0.5 % Normal 0.0-2.5 [facility] Comment on above: Performed By: #### A BOGEL, ADIFF, CBC, ANEU, ABSGEL ####[place] [address]#### RPR ####[place] [address] Eosinophil, Absolute 0.0 10 3/mcL Normal 0.0-0.7 [facility] Comment on above: Performed By: #### A BOGEL, ADIFF, CBC, ANEU, ABSGEL ####[place] [address]#### RPR ####[address] [address] Eosinophils/100 WBC (Bld) 0.2 % Normal 0.0-7.0 [facility] Comment on above: Performed By: #### A BOGEL, ADIFF, CBC, ANEU, ABSGEL ####[place] [address]#### RPR ####[address] [address] Lymphocyte, Absolute 2.0 10 3/mcL Normal 0.9-4.3 [facility] Comment on above: Performed By: #### A BOGEL, ADIFF, CBC, ANEU, ABSGEL ####[place] [address]#### RPR ####[address] [address] Lymphocytes/100 WBC (Bld) 11.6 % Low 20.0-40.0 [facility] Comment on above: Performed By: #### A BOGEL, ADIFF, CBC, ANEU, ABSGEL ####[place] [address]#### RPR ####[address] [address] Monocyte, Absolute 1.2 10 3/mcL Normal 0.1-1.4 [facility] Comment on above: Performed By: #### A BOGEL, ADIFF, CBC, ANEU, ABSGEL ####[place] [address]#### RPR ####[address] [address] Monocytes/100 WBC (Bld) 7.0 % Normal 2.0-13.0 [facility] Comment on above: Performed By: #### A BOGEL, ADIFF, CBC, ANEU, ABSGEL ####[place] [address]#### RPR ####[address] [address] Neutrophils/100 WBC (Bld) 80.7 % High 50.0-75.0 [facility] Comment on above: Performed By: #### A MARIO MAZARIEGOSIFF, CBC, ANEU, ABSGEL ####[place] [address]#### RPR ####[address] [address] .NEUABSon 07-26-2024 Neutrophil, Absolute 14.3 10 3/mcL High 2.3-8.1 [facility] Comment on above: Performed By: #### A MARIO MAZARIEGOSIFF, CBC, ANEU, ABSGEL ####[place] [address]#### RPR ####[place] [address] ABO/Rh (Gel)on 07-26-2024 ABO/Rh Interp Negative Invalid Interpretation Code [facility] Comment on above: Performed By: #### A MARIO MAZARIEGOSIFF, CBC, ANEU, ABSGEL ####[place] [address]#### RPR ####[place] [address] ABS (Gel)on 07-26-2024 ABSC Interp (Gel) Negative Normal [facility] Comment on above: Performed By: #### A YAIR ADIFF, CBC, ANEU, ABSGEL ####[place] [address]#### RPR ####[place] [id number] CBCon 07-26-2024 Erythrocyte distribution width (RBC) [Ratio] 14.5 % Normal 11.5-15.5 [facility] Comment on above: Performed By: #### A MARIO MAZARIEGOSIFF, CBC, ANEU, ABSGEL ####[place] [address]#### RPR ####[place] [address] Hematocrit (Bld) [Volume fraction] 31.8 % Low 34.0-46.0 [facility] Comment on above: Performed By: #### A YAIR, ADIFF, CBC, ANEU, ABSGEL ####[place] [address]#### RPR ####[place] [address] Hgb 10.9 G/dL Low 12.0-16.0 [facility] Comment on above: Performed By: #### A YAIR, ADIFF, CBC, ANEU, ABSGEL ####[place] [address]#### RPR ####[place] [address] MCH (RBC) [Entitic mass] 29.6 pg Normal 27.0-33.0 [facility] Comment on above: Performed By: #### A MAKEL, ADIFF, CBC, ANEU, ABSGEL ####[place] [address]#### RPR ####[place] [address] MCHC 34.4 G/dL Normal 32.0-36.0 [facility] Comment on above: Performed By: #### A YAIR, ADIFF, CBC, ANEU, ABSGEL ####[place] [address]#### RPR ####[place] [address] MCV (RBC) [Entitic vol] 86.2 fL Normal 80.0-99.0 [facility] Comment on above: Performed By: #### A MAKEL, ADIFF, CBC, ANEU, ABSGEL ####[place] [address]#### RPR ####[place] [address] Platelet 210 10 3/mcL Normal 150-450 [facility] Comment on above: Performed By: #### A MARGUERITE MAZARIEGOS, CBC, ANEU, ABSGEL ####[place] [address]#### RPR ####[place] [address] Platelet mean volume (Bld) [Entitic vol] 9.0 fL Normal 6.6-10.5 [facility] Comment on above: Performed By: #### A MARGUERITE MAZARIEGOS, CBC, ANEU, ABSGEL ####[place] [id number]#### RPR ####[place] [address] RBC 3.69 10 6/mcL Low 4.10-5.30 [facility] Comment on above: Performed By: #### A MARGUERITE MAZARIEGOS, CBC, ANEU, ABSGEL ####[place] [id number]#### RPR ####[place] [address] WBC 17.7 10 3/mcL High 4.5-10.8 [facility] Comment on above: Performed By: #### A MARGUERITE MAZARIEGOS, CBC, ANEU, ABSGEL ####[place] [id number]#### RPR ####[place] [address] LABORATORYOrdered By: Jaki Guzman on 07-26-2024 ABO and Rh group Nom (Bld) Blood group O Rh(D) negative Invalid Interpretation Code AO BB Auto SS Blood group antibody screen Ql Negative ABSC (07/26/24 4:33 AM) Normal AO BB Auto SS LABORATORYOrdered By: SYSTEM SYSTEM on 07-26-2024 Basophils (Bld) [#/Vol] 0.1 103/mcL Normal 0.0 - 0.2 10^3/mcL AO Workflow SS Basophils/100 WBC (Bld) 0.5 % Normal 0.0 - 2.5 % AO Workflow SS Eosinophil, Absolute 0.0 103/mcL Normal 0.0 - 0 .7 10^3/mcL AO Workflow SS Eosinophils/100 WBC (Bld) 0.2 % Normal 0.0 - 7.0 % AO Workflow SS Erythrocyte distribution width (RBC) [Ratio] 14.5 % Normal 11.5 - 15.5 % AO Workflow SS Hematocrit (Bld) [Volume fraction] 31.8 % Low 34.0 - 46.0 % AO Workflow SS Hemoglobin (Bld) [Mass/Vol] 10.9 G/dL Low 12.0 - 16.0 G/dL AO Workflow SS Lymphocytes (Bld) [#/Vol] 2.0 103/mcL Normal 0.9 - 4.3 10^3/mcL AO Workflow SS Lymphocytes/100 WBC (Bld) 11.6 % Low 20.0 - 40.0 % AO Workflow SS MCH (RBC) [Entitic mass] 29.6 pg Normal 27.0 - 33.0 pg AO Workflow SS MCHC 34.4 G/dL Normal 32.0 - 36.0 G/dL AO Workflow SS MCV (RBC) [Entitic vol] 86.2 fL Normal 80.0 - 99.0 fL AO Workflow SS Monocytes (Bld) [#/Vol] 1.2 103/mcL Normal 0.1 - 1.4 10^3/mcL AO Workflow SS Monocytes/100 WBC (Bld) 7.0 % Normal 2.0 - 13.0 % AO Workflow SS Neutrophils (Bld) [#/Vol] 14.3 103/mcL High 2.3 - 8.1 10^3/mcL AO Workflow SS Neutrophils/100 WBC (Bld) 80.7 % High 50.0 - 75.0 % AO Workflow SS Platelet mean volume (Bld) [Entitic vol] 9.0 fL Normal 6.6 - 10.5 fL AO Workflow SS Platelets (Bld) [#/Vol] 210 103/mcL Normal 150 - 450 10^3/mcL AO Workflow SS RBC (Bld) [#/Vol] 3.69 106/mcL Low 4.10 - 5.3 0 10^6/mcL AO Workflow SS WBC (Bld) [#/Vol] 17.7 103/mcL High 4.5 - 10.8 10^3/mcL AO Workflow SS LABORATORYOrdered By: Dominic Wolfe on 07-26-2024 Reagin Ab RPR Ql (S) Non-Reactive 1 (07/26/24 4:33 AM) Normal Non-Reactive [facility]Sero SS Comment on above: Interpretive Data: T he RPR test is a non-treponemal assay useful as an aid in the diagnosis of primary and secondary syphilis. It converts to positive generally within 2 weeks after the appearance of a lesion. This test is also useful for monitoring response to antibiotic therapy. A positive RPR screening test will be followed by the FTA ABS test. False positive RPR tests may occur in 1) patients with underlying autoimmune disorders, 2) elderly patients, 3) , and 4) other conditions with abnormal serum globulins. LABORATORYOrdered By: Rajani Gustafson on 07-26-2024 ABO and Rh group Nom (Bld) O negative (07/26/24 3:48 AM) [facility] Group B Strep Date Performed 20240625 [facility] Group B Strep, External Negative (07/26/24 3:48 AM) [facility] Hepatitis B Date Performed [id number] [facility] Hepatitis B, External Negative (07/26/24 3:48 AM) [facility] HIV Antibodies, External Negative (07/26/24 3:48 AM) [facility] RPR, External Nonreactive (07/26/24 3:48 AM) [facility] Rubella, External Immune (07/26/24 3:48 AM) [facility] ABO/Rh (Gel)on 05-01-2024 ABO/Rh Interp Negative Invalid Interpretation Code [facility] Comment on above: Performed By: #### G , KLAUDIA, BMP, MDW, CBC, ANEU, ADIFF #### [facility] [address], [place] [address] ABS (Gel)on 05-01-2024 ABSC Interp (Gel) Negative Normal [facility] Comment on above: Performed By: #### G , KLAUDIA, JOSEPH, W, CBC, ANEU, ADIFF #### [facility] [address], [place] [address] LABORATORYOrdered By: Joey Gmable on 05-01-2024 ABO and Rh group Nom (Bld) Blood group O Rh(D) negative Invalid Interpretation Code AO BB Auto SS Blood group antibody screen Ql Negative ABSC (05/01/24 10:07 AM) Normal AO BB Auto SS Progress Noteon 02-21-2024 Regional Facilities Manager Authentication Interface Message Text [facility] MATERNAL MEDICINE - at [place] DR. CAMARENA OFFICE VISIT NOTE DOS: 02/21/2024 02/21/2024 Chief Complaint She presents for review of progress in thus far and for comprehensive review of her maternal -obstetric- risks in this . The reasons for the visit are as highlighted in the concluding summary communication to business systems manager which is my problem-based office review. History of Present Illness Joanna is a 34 y.o. female at 18w3d. Here for an office visit with was multifaceted and the history of present illness is itemized/organized under applicable individualized problem list assessments as listed below. Obstetric History OB History Para Term AB Living 1 SAB IAB Ectopic Multiple Live Births # Outcome Date GA Lbr Cj/2nd Weight Sex Type Anes PTL Lv 1 Current - I reviewed it at patient encounter and pertinent aspects are integrated into the below problem list-based assessment Past Medical History No past medical history on file. - I reviewed it at patient encounter and pertinent aspects are integrated into the below problem list-based assessment Social History - I reviewed it at patient encounter and pertinent aspects are integrated into the below problem list-based assessment Family History - I reviewed it at patient encounter, including screening genetic pedigree as available, and pertinent aspects are integrated into the below problem list-based assessment Medications and Allergies . No Known Allergies - I reviewed it at patient encounter and are integrated into the below problem list-based assessment. Allergies were reviewed Laboratory Studies and Imaging studies - I reviewed it at patient encounter and pertinent aspects are integrated into assessments. Vitals LMP 10/15/2023 - heart rate as per imaging report today, as applicable and available. ASSESSMENT AND PLAN After integrating maternal and obstetric and considerations, my recommendations are as assembled. Active Non-Hospital Problems Diagnosis Date Noted Care plan discussed with patient 02/21/2024 02/21/2024 - Office Visit - MD Felton: 18w3d . she decides against further genetic testing and will consider genetic testing by pool servicer, if merited. 2. Laboratory Tests to be ordered in your office: Hemoglobin A1c. 3. Follow-up: Follow-up ultrasound in 2 weeks to complete anatomy survey. 4. Imaging study recommended in the office: Ultrasound 32/36 weeks for interval growth assessment given limitations of central fundal height with BMI of 38 and additional risk for increased growth restriction given abnormal genetic testing. BP today will suggest possible stage I hypertension if subsequent blood pressures remain in the same range. She prefers imaging study in your office. 5. Antepartum surveillance: Weekly testing at 36 weeks based on AMA and BMI class II. 6. Delivery: Obstetric goal for vaginal delivery with section restricted to standard obstetric indications between at complete 'full-term' gestational window. We discussed that the final determinations on both the mode and timing of delivery may be impacted upon by how the health unfolds- at risk of obstetric complications. 7. Special Considerations: At an increased risk for genetic abnormalities-pediatr ician could arrange for genetic assessments as clinically merited after evaluation [] Medications Review - she is on: PNV 1 QD. ASA 81 mg. QD-is not on it and it was recommended and she will consider it but is not completely embracing of the recommendation. care, antepartum 02/21/2024 02/21/2024 - Office Visit - MD Felton: 18w3d . [] Care: => Stable Co-Morbidities: She is in excellent general health. No adverse life-style. => BP 138/65 - systolic blood pressure trending towards stage I hypertension. Labs: Hb 12.6 gm/dl on 01/23/2024. She provided no history of uterine contractions, leakage of fluid, or vaginal bleeding. Obesity, Class II, BMI 35-39.9 02/21/2024 02/21/2024 - Office Visit - MD Felton: 18w3d . [] Obesity: Her BMI is 38. To address its associated risks for gestational diabetes and preeclampsia, we discussed optimal gestational weight gain and recommendation for daily low-dose aspirin to mitigate the risk. Early HbA1c to exclude occult diabetes (value < 6.5 %) and glucose intolerance (value < 5.7 %) was explained. We also discussed the benefit of moderate exertion level activity 5 times a week - slowly building it up to 30 minutes. [] Risk for Infectious Diseases: We reviewed prevention strategies for maternal- At risk for genetic disorder 02/21/2024 02/21/2024 - Office Visit - MD Felton: 18w3d . [] Genetic Health: Review of concluded genetic testing occurred -NIPT-Aneuploidy revealed increased risk for trisomy 1 (more content not included)... Normal [facility] Hepatic function 2000 panelo n 01-04-2024 Albumin [Mass/Vol] 4.1 g/dL 3.6 - 5.1 g/dL [facility] Albumin/Globulin [Mass ratio] 1.5 {ratio} [facility] ALP [Catalytic activity/Vol] 51 U/L 31 - 125 U/L [facility] ALT [Catalytic activity/Vol] 19 U/L 6 - 29 U/L [facility] AST [Catalytic activity/Vol] 14 U/L 10 - 30 U/L [facility] Bilirubin [Mass/Vol] 0.5 mg/dL 0.2 - 1 .2 mg/dL [facility] Bilirubin.direct [Mass/Vol] 0.1 mg/dL < OR = 0.2 [facility] Bilirubin.indirect [Mass/Vol] 0.4 mg/dL [facility] Globulin (S) [Mass/Vol] 2.7 g/dL [facility] Protein [Mass/Vol] 6.8 g/dL 6.1 - 8.1 g/dL [facility] Nicotine Screen Bloodon 09-13 COTININE BLOOD <1.0 Normal . [facility] Comment on above: Result Comment: This test was developed and its performance characteristics determined by [facility]. It has not been cleared or approved by the Food and Drug Administration. Cotinine levels greater than 20.0 are consistent with the use of tobacco or tobacco cessation products. Performed at: [facility] [id number] Parking Supervisor: Shane Cordoba MD, Phone: [phone] Performed By: #### L 501.9985, L100.0500, L3600.3400, L500.4100, L500.4050 #### [facility] [address] [place], [place], [id number] NICOTINE BLOOD <1.0 Normal . [facility] Comment on above: Result Comment: This test was developed and its performance characteristics determined by [employer]. It has not been cleared or approved by the Food and Drug Administration. Nicotine levels greater than 2.0 are consistent with the use of tobacco or tobacco cessation products. Performed By: #### L 501.9985, L100.0500, L3600.3400, L500.4100, L500.4050 #### [facility] [address] [place], [address] CBC-Complete Blood Cnt No Di ffon 09-18-2023 Erythrocyte distribution width (RBC) [Ratio] 12.1 % Normal 11.6-14.6 [facility] Comment on above: Performed By: #### L 501.9985, L100.0500, L3600.3400, L500.4100, L500.4050 #### [facility] [address], [address] Hematocrit (Bld) [Volume fraction] 40.3 % Normal 37-47 [facility] Comment on above: Performed By: #### L 501.9985, L100.0500, L3600.3400, L500.4100, L500.4050 #### [facility] [address] [place], [place], [phone] (200) Hemoglobin (Bld) [Mass/Vol] 13.1 g/dL Normal 12.0-15.0 [facility] Comment on above: Performed By: #### L 501.9985, L100.0500, L3600.3400, L500.4100, L500.4050 #### [facility] [address] [place], [address] MCH (RBC) [Entitic mass] 28.2 pg Normal 27.0-32.0 [facility] Comment on above: Performed By: #### L [id number], L100.0500, L3600.3400, L500.4100, L500.4050 #### [facility] [address] [place], [address] MCHC (RBC) [Mass/Vol] 32.5 g/dL Normal 32-36 [facility] Comment on above: Performed By: #### L 501.9985, L100.0500, L3600.3400, L500.4100, L500.4050 #### [facility] [address] [place], [address] MCV (RBC) [Entitic vol] 86.9 fL Normal 81-99 [facility] Comment on above: Performed By: #### L 501.9985, L100.0500, L3600.3400, L500.4100, L500.4050 #### [facility] [address] [place], [address] Platelet mean volume (Bld) [Entitic vol] 11.1 fL Normal 6.2-12.0 [facility] Comment on above: Performed By: #### L 501.9985, L100.0500, L3600.3400, L500.4100, L500.4050 #### [facility] [address] [place], [address] Platelets (Bld) [#/Vol] 323 10*3/uL Normal 150-450 [facility] Comment on above: Performed By: #### L 501.9985, L100.0500, L3600.3400, L500.4100, L500.4050 #### [facility] [address] [place], [address] RBC (Bld) [#/Vol] 4.64 10*6/uL Normal 4.2-5.4 [facility] Comment on above: Performed By: #### L 501.9985, L100.0500, L3600.3400, L500.4100, L500.4050 #### [facility] [address] [place], [address] RDW SD 38.7 fl Normal 35.1-43.9 [facility] Comment on above: Performed By: #### L 501.9985, L100.0500, L3600.3400, L500.4100, L500.4050 #### [facility] [address] [place], [address] WBC (Bld) [#/Vol] 9.1 10*3/uL Normal 4.4-11.0 [facility] Comment on above: Performed By: #### L 501.9985, L100.0500, L3600.3400, L500.4100, L500.4050 #### [facility] [address] [place], [address] Comprehensive Metabolic Prof [facility] 09-18-2023 Albumin [Mass/Vol] 3.7 g/dL Normal 3.2-5.0 [facility] Comment on above: Performed By: #### L 501.9985, L100.0500, L3600.3400, L500.4100, L500.4050 #### [facility] [address] [place], [address] Albumin/Globulin [Mass ratio] 0.8 {ratio} Low 0.9-2.4 [facility] Comment on above: Performed By: #### L 501.9985, L100.0500, L3600.3400, L500.4100, L500.4050 #### [facility] [address] [place], [address] ALK P 69 U/L Normal 45-117 [facility] Comment on above: Performed By: #### L 501.9985, L100.0500, L3600.3400, L500.4100, L500.4050 #### [facility] [address] [place], [address] ALT [Catalytic activity/Vol] 26 U/L Normal 13-56 [facility] Comment on above: Performed By: #### L 501.9985, L100.0500, L3600.3400, L500.4100, L500.4050 #### [facility] [address] [place], [address] AST [Catalytic activity/Vol] 22 U/L Normal 15-37 [facility] Comment on above: Performed By: #### L 501.9985, L100.0500, L3600.3400, L500.4100, L500.4050 #### [facility] [address] [place], [address] Bilirubin [Mass/Vol] 0.70 mg/dL Normal 0.20-1.00 [facility] Comment on above: Result Comment: For patients on eltrombopag therapy, use of Dimension [place] TBIL is not recommended. Performed By: #### L 501.9985, L100.0500, L3600.3400, L500.4100, L500.4050 #### [facility] [address] [place], [address] BUN/CRE 14.3 RATIO Normal 10-20 [facility] Comment on above: Performed By: #### L 501.9985, L100.0500, L3600.3400, L500.4100, L500.4050 #### [facility] [address] [place], [address] CA,Total 9.4 mg/dL Normal 8.5-10.1 [facility] Comment on above: Performed By: #### L 501.9985, L100.0500, L3600.3400, L500.4100, L500.4050 #### [facility] [address] [place], [address] Chloride [Moles/Vol] 107 mmol/L Normal 98-107 [facility] Comment on above: Performed By: #### L 501.9985, L100.0500, L3600.3400, L500.4100, L500.4050 #### [facility] [address] [place], [address] CO2 [Moles/Vol] 25.0 mmol/L Normal 21.0-32.0 [facility] Comment on above: Performed By: #### L 501.9985, L100.0500, L3600.3400, L500.4100, L500.4050 #### [facility] [address] [place], [address] Creatinine [Mass/Vol] 1.05 mg/dL High 0.55-1.02 [facility] Comment on above: Result Comment: The validity of the calculated GFR GFRAA in patients over 70 years has not been determined. Clinical correlation is essential. Performed By: #### L 501.9985, L100.0500, L3600.3400, L500.4100, L500.4050 #### [facility] [address] [place], [address] EST GFR - AA 76 mL/min Normal >60 [facility] Comment on above: Result Comment: Afri can Turkish GFR Calc Performed By: #### L 501.9985, L100.0500, L3600.3400, L500.4100, L500.4050 #### [facility] [address] [place], [address] GAP 6 Normal 5-15 [facility] Comment on above: Performed By: #### L 501.9985, L100.0500, L3600.3400, L500.4100, L500.4050 #### [facility] [address] [place], [address] GFR/1.73 sq M.predicted among non-blacks MDRD (S/P/Bld) [Vol rate/Area] 63 mL/min/{1.73_m2} Normal >60 [facility] Comment on above: Result Comment: Non- GFR Calc Performed By: #### L 501.9985, L100.0500, L3600.3400, L500.4100, L500.4050 #### [facility] [address] [place], [address] Globulin (S) [Mass/Vol] 4.4 g/dL High 2.2-4.2 [facility] Comment on above: Performed By: #### L 501.9985, L100.0500, L3600.3400, L500.4100, L500.4050 #### [facility] [address] [place], [address] Glucose [Mass/Vol] 101 mg/dL Normal 74-106 [facility] Comment on above: Result Comment: Fast ing Glucose result from 100 to 125 mg/dL suggests IMPAIRED HOMEOSTASIS per A.D.A. criteria. Performed By: #### L 501.9985, L100.0500, L3600.3400, L500.4100, L500.4050 #### [facility] [address] [place], [address] Potassium [Moles/Vol] 4.0 mmol/L Normal 3.5-5.1 [facility] Comment on above: Performed By: #### L 501.9985, L100.0500, L3600.3400, L500.4100, L500.4050 #### [facility] [address] [place], [address] Sodium [Moles/Vol] 138 mmol/L Normal 136-145 [facility] Comment on above: Performed By: #### L 501.9985, L100.0500, L3600.3400, L500.4100, L500.4050 #### [facility] [address] [place], [address] T PROT 8.1 g/dL Normal 6.4-8.2 [facility] Comment on above: Performed By: #### L 501.9985, L100.0500, L3600.3400, L500.4100, L500.4050 #### [facility] [address] [place], [address] Urea nitrogen [Mass/Vol] 15 mg/dL Normal 7-18 [facility] Comment on above: Performed By: #### L 501.9985, L100.0500, L3600.3400, L500.4100, L500.4050 #### [facility] [address] [place], [address] Hemoglobin A1con 09-18-2023 HbA1c (Bld) [Mass fraction] 5.3 % Normal 3.8-5.6 [facility] Comment on above: Result Comment: Norm al < 5.7 % Prediabetic 5.7 - 6.4 % Diabetic >or= 6.5 % Please note range changes. Performed By: #### L 501.9985, L100.0500, L3600.3400, L500.4100, L500.4050 #### [facility] [address] [place], [address] Lipid Profileon 09-18-2023 Cholesterol [Mass/Vol] 159 mg/dL Normal 200 [facility] Comment on above: Result Comment: <200 mg/dL Desirable 200-240 mg/dL Borderline >240 mg/dL High Risk Performed By: #### L 501.9985, L100.0500, L3600.3400, L500.4100, L500.4050 #### [facility] [address] [place], [address] Cholesterol in HDL [Mass/Vol] 60 mg/dL Normal [facility] Comment on above: Result Comment: The drugs N-Acetylcysteine and Metamizole may falsely depress this assay. Reference Range HDL <40 mg/dL Low HDL Cholesterol HDL >or= 60 mg/dL High HDL Cholesterol Performed By: #### L 501.9985, L100.0500, L3600.3400, L500.4100, L500.4050 #### [facility] [address] [place], [address] Cholesterol in LDL [Mass/Vol] 65 mg/dL Normal 0-130 [facility] Comment on above: Performed By: #### L 501.9985, L100.0500, L3600.3400, L500.4100, L500.4050 #### [facility] [address] [place], [address] Cholesterol in VLDL [Mass/Vol] 34 mg/dL Normal 5-40 [facility] Comment on above: Performed By: #### L 501.9985, L100.0500, L3600.3400, L500.4100, L500.4050 #### [facility] [address] [place], [address] Triglyceride [Mass/Vol] 171 mg/dL Normal [facility] Comment on above: Result Comment: The drugs N-Acetylcysteine and Metamizole may falsely depress this assay. Serum Triglycerides Reference Interval Normal <150 mg/dL Borderline high 150 - 199 mg/dL High 200 - 499 mg/dL Very High > or = 500 mg/dL Performed By: #### L 501.9985, L100.0500, L3600.3400, L500.4100, L500.4050 #### [facility] [address] [place], [address] Otheron 02-16-2012 CONVERTED CLINICAL HISTORY OPERATIVE PROCEDURE: D&C, video hysteroscopy, polypectomy CLINICAL INFORMATION: Endometrial polyp [facility] CONVERTED ELECTRONIC SIGNATURE COLTON VICK M.D., PATHOLOGIST (Electronic signature on file) Final Signed Out: 02/16/2012 13:32 [facility] CONVERTED FINAL DIAGNOSIS FINAL DIAGNOSIS: ENDOMETRIUM, CURETTAGE - MENSTRUAL PHASE ENDOMETRIUM. SPECIMEN: ENDOMETRIAL CURETTINGS [facility] CONVERTED GROSS DESCRIPTION GROSS DESCRIPTION: EMC with polyp Container labeled EMC with polyps. Received are portions of red-baxter curettage material measuring 2 x 1.5 x 1 cm in aggregate. Specimen totally submitted in two cassettes. SMS:[facility] MICROSCOPIC DESCRIPTION: Slides reviewed. PSB/gpl [facility] CONVERTED ORDERING PROVIDER Ordering Provider: WANG DIAZ [facility] Vital Signs Date Time Vital Sign Value Performing Clinician Facility 03-23-2025 15:20-0400 Diastolic blood pressure 84 mm[Hg] Joel Perera MD Work Phone: [facility] 03-23-2025 15:20-0400 Heart rate 86 /min Joel Perera MD Work Phone: [facility] 03-23-2025 15:20-0400 SaO2% (BldA) [Mass fraction] 97 % Joel Perera MD Work Phone: [facility] 03-23-2025 15:20-0400 Systolic blood pressure 139 mm[Hg] Joel Perera MD Work Phone: [facility] 03-11-2025 17:27-0400 Body temperature 98.8 [degF] Sean Domínguez MD Work Phone: [facility] 03-11-2025 17:27-0400 Body weight 113 kg Sean Domínguez MD Work Phone: [facility] 03-11-2025 17:27-0400 Diastolic blood pressure 76 mm[Hg] Sean Domínguez MD Work Phone: [facility] 03-11-2025 17:27-0400 Heart rate 79 /min Sean Domínguez MD Work Phone: [facility] 03-11-2025 17:27-0400 Respiratory rate 18 /min Sean Domínguez MD Work Phone: [facility] 03-11-2025 17:27-0400 SaO2% (BldA) [Mass fraction] 98 % Sean Domínguez MD Work Phone: [facility] 03-11-2025 17:27-0400 Systolic blood pressure 130 mm[Hg] Sean Domínguez MD Work Phone: [facility] 08-09-2024 18:00-0500 Diastolic Blood Pressure Non-Invasive 74 mm[Hg] KRISTIN REICHFIELD DO [facility] 08-09-2024 18:00-0500 Heart rate 97 /min KRISTIN REICHFIELD DO [facility] 08-09-2024 18:00-0500 Systolic Blood Pressure Non-Invasive 138 mm[Hg] KRISTIN REICHFIELD DO [facility] 08-09-2024 17:40-0500 Diastolic Blood Pressure Non-Invasive 82 mm[Hg] KRISTIN REICHFIELD DO [facility] 08-09-2024 17:40-0500 Heart rate 101 /min KRISTIN REICHFIELD DO [facility] 08-09-2024 17:40-0500 Reason For Taking VItal Signs KRISTIN REICHFIELD DO [facility] 08-09-2024 17:40-0500 Respiratory rate 18 /min KRISTIN REICHFIELD DO [facility] 08-09-2024 17:40-0500 Systolic Blood Pressure Non-Invasive 139 mm[Hg] KRISTIN REICHFIELD DO [facility] [facility] 08-09-2024 15:13-0500 Body temperature 99.14 [degF] KRISTIN REICHFIELD DO [facility] 08-09-2024 15:13-0500 Diastolic Blood Pressure Non-Invasive 64 mm[Hg] KRISTIN REICHFIELD DO [facility] 08-09-2024 15:13-0500 Heart rate 108 /min KRISTIN REICHFIELD DO [facility] 08-09-2024 15:13-0500 Respiratory rate 20 /min KRISTIN REICHFIELD DO [facility] 08-09-2024 15:13-0500 Systolic Blood Pressure Non-Invasive 136 mm[Hg] KRISTIN REICHFIELD DO [facility] 07-29-2024 23:57-0500 Body temperature 98.6 [degF] HELADIO SHEROCK DO [facility] 07-29-2024 23:57-0500 Diastolic Blood Pressure Non-Invasive 73 mm[Hg] HELADIO SHEROCK DO [facility] 07-29-2024 23:57-0500 Heart rate 95 /min HELADIO SHEROCK DO [facility] 07-29-2024 23:57-0500 Respiratory rate 18 /min HELADIO SHEROCK DO [facility] 07-29-2024 23:57-0500 Systolic Blood Pressure Non-Invasive 127 mm[Hg] HELADIO SHEROCK DO [facility] 07-29-2024 08:20-0500 Body temperature 97.88 [degF] HELADIO SHEROCK DO [facility] 07-29-2024 08:20-0500 Diastolic Blood Pressure Non-Invasive 74 mm[Hg] HELADIO SHEROCK DO [facility] 07-29-2024 08:20-0500 Heart rate 90 /min HELADIO BOO DO [facility] 07-29-2024 08:20-0500 Respiratory rate 18 /min HELADIO PRICEOCK DO [facility] 07-29-2024 08:20-0500 Systolic Blood Pressure Non-Invasive 132 mm[Hg] HELADIO PRICEOCK DO [facility] 07-28-2024 23:30-0500 Blood Pressure Location HELADIO BOO DO [facility] 07-28-2024 23:30-0500 Body temperature 98.06 [degF] HELDAIO DEEOCK DO [facility] 07-28-2024 23:30-0500 Diastolic Blood Pressure Non-Invasive 84 mm[Hg] HELADIO BOO DO [facility] 07-28-2024 23:30-0500 Heart rate 100 /min HELADIO BOO DO [facility] 07-28-2024 23:30-0500 Reason For Taking VItal Signs HELADIO BOO DO [facility] 07-28-2024 23:30-0500 Respiratory rate 18 /min HELADIO BOO DO [facility] 07-28-2024 23:30-0500 Systolic Blood Pressure Non-Invasive 128 mm[Hg] HELADIO SHEROCK DO [facility] 07-28-2024 10:16-0500 Body temperature 97.7 [degF] HELADIO SHEROCK DO [facility] 07-28-2024 10:16-0500 Heart rate 92 /min HELADIO BOO DO [facility] 07-28-2024 08:27-0500 Reason For Taking VItal Signs HELADIO BOO DO [facility] 07-27-2024 23:54-0500 Body temperature 97.7 [degF] HELADIO BOO DO [facility] 07-27-2024 23:54-0500 Reason For Taking VItal Signs HELADIO BOO DO [facility] 07-27-2024 16:15-0500 Blood Pressure Cuff Size HEALDIO PRICEOCK DO [facility] 07-27-2024 16:15-0500 Blood Pressure Location HELADIO BOO DO [facility] 07-27-2024 16:15-0500 Blood Pressure Method HELADIO PRICESHAI D O [facility] 07-27-2024 11:00-0500 Body temperature 98.42 [degF] HELADIO SHEROCK DO [facility] 07-27-2024 09:45-0500 Blood Pressure Cuff Size HELADIO BOO DO [facility] 07-27-2024 09:45-0500 Blood Pressure Method HELADIO SHEROCK D O [facility] 07-26-2024 03:48-0500 Body height 163.5 cm HELADIO PRICEOCK DO [facility] 07-26-2024 03:48-0500 Body weight 119 kg HELADIO BOO DO [facility] 07-26-2024 03:48-0500 Body weight 44.52 kg/m2 HELADIO BOO DO [facility] 05-01-2024 12:04-0400 Blood Pressure Location [facility] 05-01-2024 12:04-0400 Blood Pressure Method [facility] 05-01-2024 12:04-0400 Body temperature 98.06 [degF] [facility] 05-01-2024 12:04-0400 Diastolic Blood Pressure Non-Invasive 81 mm[Hg] [facility] 05-01-2024 12:04-0400 Heart rate 90 /min [facility] 05-01-2024 12:04-0400 Respiratory rate 16 /min [facility] 05-01-2024 12:04-0400 Systolic Blood Pressure Non-Invasive 151 mm[Hg] [facility] 01-03-2024 13:39-0400 Body height 162.6 cm Eusebia Parker DO Work Phone: [facility] [employer] 01-03-2024 13:39-0400 Body mass index (BMI) [Ratio] 39.31 kg/m2 Eusebia Parker DO Work Phone: [facility] [employer] 01-03-2024 13:39-0400 Body weight 103.87 kg Eusebia Parker DO Work Phone: [facility] [employer] 01-03-2024 13:39-0400 Diastolic blood pressure 74 mm[Hg] Eusebia Parker DO Work Phone: [facility] [employer] 01-03-2024 13:39-0400 Heart rate 90 /min Eusebia Parker DO Work Phone: [facility] [employer] 01-03-2024 13:39-0400 SaO2% (BldA) [Mass fraction] 97 % Eusebia Parker DO Work Phone: [facility] [employer] 01-03-2024 13:39-0400 Systolic blood pressure 124 mm[Hg] Eusebia Parker DO Work Phone: [facility] Encounters Encounter Date Encounter Type Care Provider Facility Start: 03-23-2025 End: 03-23-2025 Office outpatient visit 15 minutes Joel Perera MD Work Phone: [facility] Internal Medicine [facility] Comment on above: Non-recurrent acute suppurative otitis media of left ear without spontaneous rupture of tympanic membrane (Primary Dx) Start: 03-23-2025 End: 04-01-2025 ambulatory EUSEBIA PARKER [facility] Start: 03-23-2025 End: 04-01-2025 Patient encounter procedure Rajani Melendez RN [facility] al Communication Start: 03-11-2025 End: 03-11-2025 Office outpatient new 30 minutes Sean Domínguez MD Work Phone: [facility] Comment on above: Arthralgia of left t emporomandibular joint (Primary Dx) Start: 03-11-2025 End: 03-11-2025 ambulatory EUSEBIA PARKER Facility:[facility] Start: 01-01-2025 End: 01-01-2025 ambulatory EUSEBIA PARKER [facility] Start: 01-01-2025 End: 01-01-2025 Encounter for general adult medical examination without abnormal findings EUSEBIA Socrative [facility] Start: 08-09-2024 End: 08-09-2024 Emergency department patient visit KRISTIN TREVIÑOJUVENTINO DO [facility] Start: 08-09-2024 ambulatory No Primary Car e Physician Facility:[facility] Start: 07-26-2024 End: 07-29-2024 Evaluation and management of inpatient HELADIO BOO [facility] Start: 07-18-2024 End: 07-18-[address] EUSEBIA PARKER DO Facility:[facility] Start: 07-18-2024 End: 07-18-2024 Patient encounter procedure [facility] Start: 05-29-2024 End: 05-29-2024 ambulatory EUSEBIA PARKER [facility] Start: 05-01-2024 End: 05-01-2024 ambulatory [facility] Facility:[facility] Start: 05-01-2024 End: 05-01-2024 SAME DAY STAY [facility] Start: 03-06-2024 End: 03-06-2024 ambulatory EUSEBIA PARKER [facility] Start: 02-21-2024 End: 02-21-2024 [facility] Start: 01-09-2024 End: 02-12-2024 Telephone encounter Eusebia Parker DO Work Phone: [facility] Comment on above: Demographics page Start: 01-03-2024 End: 01-03-2024 Patient encounter status Eusebia Parker DO Work Phone: [facility] [employer] Start: 01-03-2024 End: 01-03-2024 Periodic preventive med est patient 18-39 yrs Eusebia Parker DO Work Phone: [facility] Comment on above: Well adult exam (Jeny ira Dx); Screening exam for skin cancer; Elevated LFTs Start: 12-07-2023 End: 12-08-2023 ambulatory [facility] Facility:[facility] Start: 12-07-2023 End: 12-07-2023 Patient encounter procedure [facility] Start: 09-18-2023 ambulatory No Primary Car e Physician Facility:[facility] Start: 12-03-2022 Refill Eusebia han DO Work Phone: [facility] Comment on above: Psychophysiological insomnia Start: 11-02-2022 Refill Eusebia Eddy Pe ters DO Work Phone: [facility] Comment on above: Moderate episode of recurrent major depressive disorder (HCC) Start: 02-15-2012 End: 02-15-2012 Patient encounter procedure Wang Rosario Daniel Ki Work Phone: [facility] Start: 02-15-2012 Results Only Wang Rosario Daniel Ki Work Phone: [facility] Procedures Date Procedure Procedure Detail Performing Clinician Start: 01-03-2024 Hepatic function panel Eusebia Parker DO Work Phone: Start: 02-15-2012 CONVERTED SURGICAL PATHOLOGY Wang Rosario Daniel Ki Work Phone: Polyp of corpus uter i (disorder) HELADIO BOO DO Comment on above: with surgical remova l 2011 Plan of Treatment Date Care Activity Detail Author Start: 02-08-2063 RSV Immunization for Adults (1 - 1-dose 75+ series) RSV Immunization for Adults (1 - 1-dose 75+ series) [facility] Start: 2048 RSV Immunization aged 60 or older (1 - 1-dose 60+ series) RSV Immunization aged 60 or older (1 - 1-dose 60+ series) [facility] Start: 02-08-2038 Zoster Vaccines (1 of 2) Zoster Vaccines (1 of 2) [facility] Start: 01-07-2026 End: 01-07-2026 Patient encounter procedure 01/07/2026 8:00 AM EDT Office Visit [facility] Primary Care - [address] [place] [id number] Eusebia Parker, [address] [place] [address] [facility] Start: 07-04-2025 Depression Monitoring Depression Monitoring [facility] Start: 04-13-2025 Influenza vaccination Influenza Vaccine (#1) [facility] Start: 01-01-2025 End: 01-01-2025 Patient encounter procedure 01/01/2025 1:40 PM EDT Office Visit [address] [place] [address] Eusebia Parker, [address] [place], [place] [id number] [facility] Start: 04-13-2024 COVID-19 Vaccine ( season) COVID-19 Vaccine ( season) [facility] Start: 04-13-2024 Influenza vaccination [facility] Start: 06-30-2023 Depression Monitoring Depression Monitoring [facility] Start: 04-13-2023 COVID-19 Vaccine ( season) COVID-19 Vaccine ( season) [facility] Start: 04-13-2023 Influenza vaccination Influenza Vaccine (Season Ended) [facility] Start: 12-28-2022 End: 12-28-2022 Patient encounter procedure 12/28/2022 Office Visit Family Medicine Eusebia Parker DO [address] [place] [id number] [facility] Start: 04-13-2022 Influenza vaccination Influenza Vaccine (#1) [facility] Start: 02-08-2018 Screening for malignant neoplasm of cervix [facility] Start: 02-08-2009 Screening for malignant neoplasm of cervix [facility] Start: 02-08-2007 DTaP/Tdap/Td Vaccines (1 - Tdap) DTaP/Tdap/Td Vaccines (1 - Tdap) [facility] Start: 02-08-2007 Hepatitis B Vaccine (1 of 3 - 19+ 3-dose series) Hepatitis B Vaccine (1 of 3 - 19+ 3-dose series) [facility] Start: 02-08-2007 Hepatitis B Vaccines (1 of 3 - 19+ 3-dose series) Hepatitis B Vaccines (1 of 3 - 19+ 3-dose series) [facility] Start: 02-08-2007 Urine microalbumin profile DTaP,Tdap,Td Vaccine (1 - Tdap) [facility] Start: 02-08-2006 Anxiety Screening Anxiety Screening [facility] Start: 02-08-2006 Depression Screening Depression Screening [facility] Start: 02-08-2006 Hepatitis C screening Hepatitis C Screening [facility] Start: 02-08-2006 HIV screening HIV Screening [facility] Start: 02-08-2001 Varicella vaccination Varicella Vaccines (1 of 2 - 13+ 2-dose series) [facility] Start: 02-08-1989 MMR Vaccines (1 of 1 - Standard series) MMR Vaccines (1 of 1 - Standard series) [facility] Start: 02-08-1989 Varicella vaccination Varicella Vaccines (1 of 2 - 2-dose childhood series) [facility] Start: 1988 COVID-19 Vaccine (#1) COVID-19 Vaccine (#1) [facility] Start: 1988 Hepatitis B Vaccines (1 of 3 - 3-dose series) Hepatitis B Vaccines (1 of 3 - 3-dose series) [facility] Start: 1988 HIV screening HIV Screening [facility] Payers Date Payer Category Payer Private Health Insurance O [facility] [id number] 2023 Self-pay 2023 Commercial Managed C are - HMO [employer] [id number] 2023 Unknown [id number] 2021 Unknown [id number] 1988 Unknown [id number] 1988 Unknown [id number]. 479 1988 Unknown [id number] 1988 Unknown [id number]. 479 1988 Unknown [id number] 479 1988 Unknown [id number]. 479 1988 Unknown [id number]. 627 1988 Unknown [id number]. 627 1988 Unknown [id number]. 627 1988 Unknown [id number]. 627 Unknown [id number] 462 Unknown [id number] 462 Social History Date Type Detail Facility Tobacco smoking status MDIS Unknown if ever smoked [facility] Start: 1990 Sex Assigned At Not on file [facility] Start: 07-26-2024 End: 03-11-2025 Tobacco smoking status MDIS Never smoked tobacco [facility] Start: 06-30-2022 Alcohol intake Current drinke r of alcohol (finding) [facility] Start: 06-30-2022 End: 01-01-2025 Alcohol intake [facility] Tobacco smoking status [facility] Sex Assigned At Female [facility] Start: 01-03-2024 End: 10-10-2024 Alcohol intake Ex-drinker (finding) [facility] Start: 01-03-2024 End: 01-01-2025 Tobacco use panel [facility] Start: 03-13-2022 End: 11-20-2023 Sex Female (finding) [facility] Start: 03-11-2025 Tobacco use and exposure Smokeless tobacco non-user [facility] NEGATED: Highlighted rowStart: NINF History of tobacco use Passive smoker [facility] Functional Status Date Assessment Result Facility 08-09-2024 Functional Status ID band on, Call device within reach, Bed in low position, Wheels locked, Bedside Cart Locked, Visitor at bedside, Safety level maintained [facility] 07-29-2024 Functional Status Independent [facility] 07-28-2024 Functional Status [facility] 07-28-2024 Functional Status 3am-7am [facility] 07-27-2024 Functional Status [facility] 07-27-2024 Functional Status [facility] 07-27-2024 Functional Status Shower Independent [facility] 07-27-2024 Functional Status Lunch Percent 0 [facility] 07-27-2024 Functional Status Independent [facility] 07-27-2024 Functional Status [facility] 07-26-2024 Functional Status [facility] 07-26-2024 Functional Status [facility] 07-26-2024 Functional Status N/A [facility] Mental Status Date Assessment Result Facility 08-09-2024 Mental Status Oriented x 4 [facility] 07-29-2024 Mental Status Orientation Oriented x 4 [facility] 07-27-2024 Mental Status [facility] 07-27-2024 Mental Status [facility] 05-01-2024 Mental Status Orientation Oriented x 4 [facility] Clinical Notes 11-02-2022 to 03-23-2025 Joel Perera MD - 03/23/2025 3:15 PM EDTTelephone Encounter - Swetha Ayoub MA - 03/23/2025 10:27 AM EDTTelephone Encounter - Swetha Ayoub MA - 03/23/2025 10:27 AM EDT Note Date & Type Note Facility 03-23-2025 History of Present illness Narrative Images from the original note were not included. [facility] [place] [id number] [place] [address] Dept: [phone] Dept Loc: [phone] Visit type: Established Patient Reason for Visit: Earache Assessment and Plan 1. Non-recurrent acute suppurative otitis media of left ear without spontaneous rupture of tympanic membrane - cefuroxime (Ceftin) 250 MG tablet; Take 1 tablet (250 mg) by mouth 2 times daily for 7 days., Starting Sun03/23/2025, Until Sun03/30/2025, Ana M Marshall was seen today for earache. Diagnoses and all orders for this visit: Non-recurrent acute suppurative otitis media of left ear without spontaneous rupture of tympanic membrane (Primary) - cefuroxime (Ceftin) 250 MG tablet; Take 1 tablet (250 mg) by mouth 2 times daily for 7 days. Pt has otitis media-left ear. Sent in ceftin. Rest, push fluids, call if no better Follow up if symptoms worsen or fail to improve. Subjective Earache Associated symptoms include ear discharge and hearing loss. Pertinent negatives include no abdominal pain, coughing, diarrhea, headaches, rhinorrhea, sore throat or vomiting. Pt is here for ear pain C/o left ear pain x 16 days Has some drainage with yellow drainage, mostly at night and when she wakes up in the morning No fever No tinnitus but has some decrease hearing in the left No sore throat, rhinitis. Has chronic sinus congestion in the morning She had a baby 8 months ago. She is pumping but has low supply and the baby is getting mostly formula She doesn't think she's Review of Systems Constitutional: Negative for chills and fever. HENT: Positive for ear discharge, ear pain and hearing loss. Negative for rhinorrhea, sneezing and sore throat. Respiratory: Negative for cough and shortness of breath. Cardiovascular: Negative for chest pain and leg swelling. Gastrointestinal: Negative for abdominal pain, constipation, diarrhea, nausea and vomiting. Genitourinary: Negative for dysuria and frequency. Musculoskeletal: Negative for arthralgias and back pain. Neurological: Negative for dizziness, syncope and headaches. Psychiatric/Behavioral: Negative for dysphoric mood. The patient is not nervous/anxious. Allergies[1] Current Medications[2] Problem List[3] Social History Tobacco Use Smoking status: Never Smokeless tobacco: Never Substance Use Topics Alcohol use: Not Currently Alcohol/week: 2.0 standard drinks of alcohol Surgical History[4] Family History[5] Health Maintenance Topic Date Due HIV Screening Never done MMR Vaccines (1 of 1 - Standard series) Never done Varicella Vaccines (1 of 2 - 13+ 2-dose series) Never done Hepatitis C Screening Never done DTaP/Tdap/Td Vaccines (1 - Tdap) Never done Hepatitis B Vaccines (1 of 3 - 19+ 3-dose series) Never done Cervical Cancer Screening Never done COVID-19 Vaccine ( - 2023-) Never done Influenza Vaccine (1) 04/13/2025 Depression Monitoring 07/04/2025 Zoster Vaccines (1 of 2) 02/08/2038 RSV Immunization for Adults (1 - 1-dose 75+ series) 02/08/2063 RSV Immunization under 20 Months Aged Out HIB Vaccines Aged Out IPV Vaccines Aged Out Hepatitis A Vaccines Aged Out Meningococcal Vaccine Aged Out Rotavirus Vaccines Aged Out HPV Vaccines Aged Out Pneumococcal Vaccine: Pediatrics (0 to 5 Years) and At-Risk Patients (6 to 49 Years) Aged Out Meningococcal B Vaccine Aged Out Objective BP 139/84 Pulse 86 SpO2 97% Physical Exam Constitutional: General: She is not in acute distress. HENT: Right Ear: Tympanic membrane normal. Ears: Comments: Left TM with bulging and cloudiness with yellow discoloration at the left lower part of the TM. No TM rupture Mouth/Throat: Mouth: Mucous membranes are moist. Pharynx: No oropharyngeal exudate. Cardiovascular: Rate and Rhythm: Normal rate and regular rhythm. Pulses: Normal pulses. Heart sounds: Normal heart sounds. Pulmonary: Effort: Pulmonary effort is normal. Breath sounds: Normal breath sounds. No wheezing. Abdominal: General: Abdomen is flat. Bowel sounds are normal. Palpations: Abdomen is soft. Tenderness: There is no abdominal tenderness. Musculoskeletal: Right lower leg: No edema. Left lower leg: No edema. Neurological: Mental Status: She is alert. Data Reviewed and Summarized Labs: Lab Results Component Value Date ALT 19 01/03/2024 AST 14 01/03/2024 Imaging/Testing: Joel Perera MD [1] No Known Allergies [2] Current Outpatient Medications Medication Sig Dispense Refill Magnesium 125 MG capsule Multiple Vitamin (MULTI-VITAMIN DAILY PO) Take by mouth. cefuroxime (Ceftin) 250 MG tablet Take 1 tablet (250 mg) by mouth 2 times daily for 7 days. 14 tablet 0 No current facility-administered medications for this visit. [3] Patient Active Problem List Diagnosis Vitamin D deficiency Moderate episode of recurrent major depressive disorder (HCC) Psychophysiological insomnia [4] Past Surgical History: Procedure Laterality Date GYNECOLOGIC CRYOSURGERY 02/15/2012 POLYPECTOMY 2012 hysteroscopy WISDOM TOOTH EXTRACTION [5] Family History Problem Relation Name Age of Onset Pneumonia Father Dominic COPD Father Dominic Hypertension Father Dominic No Known Problems Brother Colon cancer Mother [place] Cancer Mother [place] Cancer Maternal Grandmother Grandma Anika 50 Hodgkins Lymphoma Diabetes Father's Brother Uncle Richard No Known Problems Sister documented in this encounter [facility] 03-23-2025 Telephone encounter Note Noted [facility] 03-23-2025 Miscellaneous Notes Noted S: Patient spoke with [facility] nurse regarding lt ear pain and muffled B: Onset of symptoms/concern start of 3rd week A: She states she went to initially and they told her related to TMJ. Patient reports she does have a yellow drainage from that ear since last week. Patient denies any URI symptoms. R: POD appt today with Dr. Perera. Address provided to patient. Advised nothing inside the ear. Patient understands care advice. No further needs at this time. Patient instructed to call back with new or worsening symptoms. Reason for Disposition Pus or cloudy discharge from ear canal Protocols used: Ear - [id number] documented in this encounter [facility] 03-23-2025 Telephone encounter Note S: Patient spoke with [facility] nurse regarding lt ear pain and muffled B: Onset of symptoms/concern start of 3rd week A: She states she went to initially and they told her related to TMJ. Patient reports she does have a yellow drainage from that ear since last week. Patient denies any URI symptoms. R: POD appt today with Dr. Perera. Address provided to patient. Advised nothing inside the ear. Patient understands care advice. No further needs at this time. Patient instructed to call back with new or worsening symptoms. Reason for Disposition Pus or cloudy discharge from ear canal Protocols used: Ear - [id number] [facility] 03-11-2025 Note HNO ID: [id number] Author: SEAN DOMÍNGUEZ MD Service: ? Author Type: Physician Type: Progress Notes Filed: 03/11/2025 17:56 Note Text: [facility] MARIKA Fair is a 35 year old female. Patient presents with: Ear Pain: Left ear pain x 4 days Left ear pain: Duration: 5 days Location: left ear Character: aching and throbbing Radiation: to the jaw/eye Aggravating: chewing, touching Relieving: Pain relievers: Motrin Associated: muffled hearing Pertinent negatives: Denies nasal congestion, rhinorrhea, sore throat, fever, chills, otorrhea No recent swimming. Ear Pain Review of Systems Objective BP 130/76 Pulse 79 Temp 37.1 ?C (98.8 ?F) Resp 18 Wt 113 kg (249 lb 1.9 oz) LMP 03/06/2025 SpO2 98% Physical Exam Constitutional: General: She is not in acute distress. HENT: Right Ear: Tympanic membrane and ear canal normal. Left Ear: Tympanic membrane and ear canal normal. Tenderness (Tender left temporomandibular joint) present. Nose: No congestion. Right Sinus: No maxillary sinus tenderness or frontal sinus tenderness. Left Sinus: No maxillary sinus tenderness or frontal sinus tenderness. Mouth/Throat: Mouth: Mucous membranes are moist. Pharynx: Posterior oropharyngeal erythema present. No oropharyngeal exudate. Eyes: Extraocular Movements: Extraocular movements intact. Conjunctiva/sclera: Conjunctivae normal. Pupils: Pupils are equal, round, and reactive to light. Cardiovascular: Rate and Rhythm: Normal rate and regular rhythm. Heart sounds: No murmur heard. Pulmonary: Effort: No respiratory distress. Breath sounds: No wheezing, rhonchi or rales. Musculoskeletal: Cervical back: Neck supple. Lymphadenopathy: Cervical: No cervical adenopathy. Neurological: Mental Status: She is alert. {ASSESSMENT/PLAN: 1. Arthralgia of left temporomandibular joint - ICD9: 524.62, ICD10: M26.622 Normal canal and middle ear exam. Suspect TMJ arthralgia. Treat with ibuprofen (breast feeding, may reduce milk production). Sean Domínguez MD Differential Diagnoses - TMJ arthralgia is more likely for the following reason(s): suggested by HANDP - Eustachian tube dysfunction - Otitis media/externa is less likely for the following reason(s): Normal exam Procedures [facility] 03-11-2025 History of Present illness Narrative [facility] Britni Fair is a 35 year old female. Patient presents with: Ear Pain: Left ear pain x 4 days Left ear pain: Duration: 5 days Location: left ear Character: aching and throbbing Radiation: to the jaw/eye Aggravating: chewing, touching Relieving: Pain relievers: Motrin Associated: muffled hearing Pertinent negatives: Denies nasal congestion, rhinorrhea, sore throat, fever, chills, otorrhea No recent swimming. Ear Pain Review of Systems Objective BP 130/76 Pulse 79 Temp 37.1 C (98.8 F) Resp 18 Wt 113 kg (249 lb 1.9 oz) LMP 03/06/2025 SpO2 98% Physical Exam Constitutional: General: She is not in acute distress. HENT: Right Ear: Tympanic membrane and ear canal normal. Left Ear: Tympanic membrane and ear canal normal. Tenderness (Tender left temporomandibular joint) present. Nose: No congestion. Right Sinus: No maxillary sinus tenderness or frontal sinus tenderness. Left Sinus: No maxillary sinus tenderness or frontal sinus tenderness. Mouth/Throat: Mouth: Mucous membranes are moist. Pharynx: Posterior oropharyngeal erythema present. No oropharyngeal exudate. Eyes: Extraocular Movements: Extraocular movements intact. Conjunctiva/sclera: Conjunctivae normal. Pupils: Pupils are equal, round, and reactive to light. Cardiovascular: Rate and Rhythm: Normal rate and regular rhythm. Heart sounds: No murmur heard. Pulmonary: Effort: No respiratory distress. Breath sounds: No wheezing, rhonchi or rales. Musculoskeletal: Cervical back: Neck supple. Lymphadenopathy: Cervical: No cervical adenopathy. Neurological: Mental Status: She is alert. {ASSESSMENT/PLAN: 1. Arthralgia of left temporomandibular joint - ICD9: 524.62, ICD10: M26.622 Normal canal and middle ear exam. Suspect TMJ arthralgia. Treat with ibuprofen (breast feeding, may reduce milk production). Sean Domínguez MD Differential Diagnoses - TMJ arthralgia is more likely for the following reason(s): suggested by H&P - Eustachian tube dysfunction - Otitis media/externa is less likely for the following reason(s): Normal exam Procedures documented in this encounter [facility] 08-13-2024 Note . MICRO - Microbiology PROCEDURE: Urine Culture [O1 *1] SOURCE: Urine BODY SITE: COLLECTED DATE/TIME: 08/09/2024 16:11 EST RECEIVED DATE/TIME: 08/10/2024 14:14 EST START DATE/TIME: 08/10/2024 14:14 EST FREE TEXT SOURCE: FINAL REPORTS Final Report [] Verified Date/Time/Personnel: 08/13/2024 08:33 EST >100,000 cfu/ml Escherichia coli 10,000 - 50,000 cfu/ml Staphylococcus coagulase negative Sensitivity testing not indicated. PRELIMINARY REPORTS Preliminary Report [] Verified Date/Time/Personnel: 08/12/2024 11:59 EST >100,000 cfu/ml Escherichia coli SHRUTHI to follow 10,000 - 50,000 cfu/ml Staphylococcus coagulase negative Sensitivity testing not indicated. Preliminary Report [] Verified Date/Time/Personnel: 08/11/2024 10:09 EST Culture results pending. SUSCEPTIBILITY RESULTS Escherichia coli Antibiotic SHRUTHI Dilut SHRUTHI Inter Ampicillin >16 Resistant Ampicillin/ 16/8 Intermediate Sulbactam Aztreonam <=4 Susceptible Cefazolin <=2 Susceptible Ceftazidime/ <=4 Susceptible Avibactam Ceftolozane/ <=2 Susceptible Tazobactam Ciprofloxacin <=0.25 Susceptible Ertapenem <=0.5 Susceptible Gentamicin >8 Resistant ID Panel Not Not Applicable Applicable Imipenem <=1 Susceptible Levofloxacin <=0.5 Susceptible Meropenem <=1 Susceptible Minocycline <=4 Susceptible Nitrofurantoin <=32 Susceptible Piperacillin/ <=8 Susceptible Tazobactam Tobramycin 4 Susceptible Trimethoprim/ >2/38 Resistant Sulfa Order Comments O1: Urine Culture Added by Discern Performing Locations *1: This test was performed at: [address], [address] , [facility] 08-11-2024 Note . MICRO - Microbiology PROCEDURE: Affirm Pathogens DNA Direct Probe [*1] SOURCE: Vaginal Fluid BODY SITE: Cervix COLLECTED DATE/TIME: 08/09/2024 16:11 EST RECEIVED DATE/TIME: 08/10/2024 14:09 EST START DATE/TIME: 08/10/2024 14:09 EST FREE TEXT SOURCE: FINAL REPORTS Final Report [] Verified Date/Time/Personnel: 08/11/2024 08:32 EST Trichomonas vaginalis DNA Probe Negative Gardnerella vaginalis DNA Probe Positive Marsah species DNA Probe Negative Performing Locations *1: This test was performed at: [address], [address] , [facility] 08-09-2024 Hospital Discharge instructions Patient Education 08/09/2024 17:41:34 Bladder Infection, Female (Adult) Bladder Infection, Female (Adult) Urine is normally doesn't have any bacteria in it. But bacteria can get into the urinary tract from the skin around the rectum. Or they can travel in the blood from elsewhere in the body. Once they are in your urinary tract, they can cause infection in the urethra (urethritis), the bladder (cystitis), or the kidneys (pyelonephritis). The most common place for an infection is in the bladder. This is called a bladder infection. This is one of the most common infections in women. Most bladder infections are easily treated. They are not serious unless the infection spreads to the kidney. The phrases bladder infection, UTI, and cystitis are often used to describe the same thing. But they are not always the same. Cystitis is an inflammation of the bladder. The most common cause of cystitis is an infection. Symptoms The infection causes inflammation in the urethra and bladder. This causes many of the symptoms. The most common symptoms of a bladder infection are: Pain or burning when urinating Having to urinate more often than usual Urgent need to urinate Only a small amount of urine comes out Blood in urine Abdominal discomfort. This is usually in the lower abdomen above the pubic bone. Cloudy urine Strong- or bad-smelling urine Unable to urinate (urinary retention) Unable to hold urine in (urinary incontinence) Fever Loss of appetite Confusion (in older adults) Causes Bladder infections are not contagious. You can't get one from someone else, from a toilet seat, or from sharing a bath. The most common cause of bladder infections is bacteria from the bowels. The bacteria get onto the skin around the opening of the urethra. From there, they can get into the urine and travel up to the bladder, causing inflammation and infection. This usually happens because of: Wiping improperly after urinating. Always wipe from front to back. Bowel incontinence Procedures such as having a catheter inserted Older age Not emptying your bladder. This can allow bacteria a chance to grow in your urine. Dehydration Constipation Sex Use of a diaphragm for control Treatment Bladder infections are diagnosed by a urine test. They are treated with antibiotics and usually clear up quickly without complications. Treatment helps prevent a more serious kidney infection. Medicines Medicines can help in the treatment of a bladder infection: Take antibiotics until they are used up, even if you feel better. It is important to finish them to make sure the infection has cleared. You can use acetaminophen or ibuprofen for pain, fever, or discomfort, unless another medicine was prescribed. If you have chronic liver or kidney disease, talk with your healthcare provider before using these medicines. Also talk with your provider if you've ever had a stomach ulcer or gastrointestinal bleeding, or are taking blood-thinner medicines. If you are given phenazopydridine to reduce burning with urination, it will cause your urine to become a bright orange color. This can stain clothing. Care and prevention These self-care steps can help prevent future infections: Drink plenty of fluids to prevent dehydration and flush out your bladder. Do this unless you must restrict fluids for other health reasons, or your doctor told you not to. Proper cleaning after going to the bathroom is important. Wipe from front to back after using the toilet to prevent the spread of bacteria. Urinate more often. Don't try to hold urine in for a long time. Wear loose-fitting clothes and cotton underwear. Avoid tight-fitting pants. Improve your diet and prevent constipation. Eat more fresh fruit and vegetables, and fiber, and less junk and fatty foods. Avoid sex until your symptoms are gone. Avoid caffeine, alcohol, and spicy foods. These can irritate your bladder. Urinate right after intercourse to flush out your bladder. If you use control pills and have frequent bladder infections, discuss it with your doctor. Follow-up care Call your healthcare provider if all symptoms are not gone after 3 days of treatment. This is especially important if you have repeat infections. If a culture was done, you will be told if your treatment needs to be changed. If directed, you can call to find out the results. If X-rays were done, you will be told if the results will affect your treatment. Call 911 Call 911 if any of the following occur: Trouble breathing Hard to wake up or confusion Fainting or loss of consciousness Rapid heart rate When to seek medical advice Call your healthcare provider right away if any of these occur: Fever of 100.4 F (38.0 C) or higher, or as directed by your healthcare provider Symptoms are not better by the third day of treatment Back or belly (abdominal) pain that gets worse Repeated vomiting, or unable to keep medicine down Weakness or dizziness Vaginal discharge Pain, redness, or swelling in the outer vaginal area (labia) [id number] [employer] [place] [address]. All rights reserved. This information is not intended as a substitute for professional medical care. Always follow your healthcare professional's instructions. Follow Up Care 08/09/2024 15:00:26 With:[facility] Address: DR HELADIO [address]OO [address] [address] [phone] When:2-4 days With:Go to emergency room if symptoms worsen Address:Unknown When:2-4 days With:EUSEBIA PARKER DO Address: [address] [place] [id number]- When:2-4 days [facility] 08-09-2024 Emergency department Discharge summary Discharge Instructions Thank you for allowing [facility] to assist you with your healthcare needs. The following is important discharge information regarding your hospital visit. Diagnosis from Today's Visit UTI (urinary tract infection) Vaginal discharge What to Do Next Instructions from Your Care Team Follow-up with your [facility] on Sunday. Urine did show signs of infection and given antibiotics here and would recommend taking Keflex as prescribed. Return emergency department if you develop worsening symptoms, worsening discharge, pain, fevers, or any other care concern. Follow-up results of pelvic swabs. No qualifying data available. Post Acute Orders No qualifying data available. You Need to Schedule the Following Appointments Follow Up with [facility] When:Within 2-4 days Where:DR HELADIO BOO [facility] [address] [facility] [address] [place] [address] [phone] Follow Up with Go to emergency room if symptoms worsen When:Within 2-4 days Follow Up with EUSEBIA PARKER DO When:Within 2-4 days Where:[address] [place] [address]- Allergies NKA Medications Please ask your primary doctor or pharmacist before taking any other medication not listed, including over the counter drugs, herbal medications, vitamins and or supplements as they may interact with your home medications. What How Much When Instructions Last Dose New cephalexin (cephalexin 500 mg oral capsule) 1 cap by mouth Four (4) times a day Duration: 7 Days Printed Prescription Unchanged calcium carbonate-magnesium carbonate (calcium carbonate-magnesium carbonate 200 mg-400 mg oral tablet) 1 tab(s) by mouth Three (3) times a day with meals Unchanged docusate (Colace 100 mg oral capsule) 1 cap by mouth Two (2) times a day as needed for Constipation Unchanged ferrous sulfate (ferrous sulfate 325 mg (65 mg elemental iron) oral tablet) 1 tab(s) by mouth Two (2) times a day Unchanged ibuprofen (IBU 600 mg oral tablet) 1 tab(s) by mouth Four (4) times a day Unchanged multivitamin with minerals (Vitamin D with Minerals oral tablet) 1 tab(s) by mouth Once a day Unchanged multivitamin, ( AD oral tablet) 1 tab(s) by mouth Every day Please take this list to your next doctor s visit. Bring all medications you take, including over the counter medications, herbals and other supplements with you to your doctor s visit. Patients and families are reminded to discard old lists and to update any records with all medication providers or retail pharmacies. Education Materials Bladder Infection, Female (Adult) Urine is normally doesn't have any bacteria in it. But bacteria can get into the urinary tract from the skin around the rectum. Or they can travel in the blood from elsewhere in the body. Once they are in your urinary tract, they can cause infection in the urethra (urethritis), the bladder (cystitis), or the kidneys (pyelonephritis). The most common place for an infection is in the bladder. This is called a bladder infection. This is one of the most common infections in women. Most bladder infections are easily treated. They are not serious unless the infection spreads to the kidney. The phrases bladder infection, UTI, and cystitis are often used to describe the same thing. But they are not always the same. Cystitis is an inflammation of the bladder. The most common cause of cystitis is an infection. Symptoms The infection causes inflammation in the urethra and bladder. This causes many of the symptoms. The most common symptoms of a bladder infection are: Pain or burning when urinating Having to urinate more often than usual Urgent need to urinate Only a small amount of urine comes out Blood in urine Abdominal discomfort. This is usually in the lower abdomen above the pubic bone. Cloudy urine Strong- or bad-smelling urine Unable to urinate (urinary retention) Unable to hold urine in (urinary incontinence) Fever Loss of appetite Confusion (in older adults) Causes Bladder infections are not contagious. You can't get one from someone else, from a toilet seat, or from sharing a bath. The most common cause of bladder infections is bacteria from the bowels. The bacteria get onto the skin around the opening of the urethra. From there, they can get into the urine and travel up to the bladder, causing inflammation and infection. This usually happens because of: Wiping improperly after urinating. Always wipe from front to back. Bowel incontinence Procedures such as having a catheter inserted Older age Not emptying your bladder. This can allow bacteria a chance to grow in your urine. Dehydration Constipation Sex Use of a diaphragm for control Treatment Bladder infections are diagnosed by a urine test. They are treated with antibiotics and usually clear up quickly without complications. Treatment helps prevent a more serious kidney infection. Medicines Medicines can help in the treatment of a bladder infection: Take antibiotics until they are used up, even if you feel better. It is important to finish them to make sure the infection has cleared. You can use acetaminophen or ibuprofen for pain, fever, or discomfort, unless another medicine was prescribed. If you have chronic liver or kidney disease, talk with your healthcare provider before using these medicines. Also talk with your provider if you've ever had a stomach ulcer or gastrointestinal bleeding, or are taking blood-thinner medicines. If you are given phenazopydridine to reduce burning with urination, it will cause your urine to become a bright orange color. This can stain clothing. Care and prevention These self-care steps can help prevent future infections: Drink plenty of fluids to prevent dehydration and flush out your bladder. Do this unless you must restrict fluids for other health reasons, or your doctor told you not to. Proper cleaning after going to the bathroom is important. Wipe from front to back after using the toilet to prevent the spread of bacteria. Urinate more often. Don't try to hold urine in for a long time. Wear loose-fitting clothes and cotton underwear. Avoid tight-fitting pants. Improve your diet and prevent constipation. Eat more fresh fruit and vegetables, and fiber, and less junk and fatty foods. Avoid sex until your symptoms are gone. Avoid caffeine, alcohol, and spicy foods. These can irritate your bladder. Urinate right after intercourse to flush out your bladder. If you use control pills and have frequent bladder infections, discuss it with your doctor. Follow-up care Call your healthcare provider if all symptoms are not gone after 3 days of treatment. This is especially important if you have repeat infections. If a culture was done, you will be told if your treatment needs to be changed. If directed, you can call to find out the results. If X-rays were done, you will be told if the results will affect your treatment. Call 911 Call 911 if any of the following occur: Trouble breathing Hard to wake up or confusion Fainting or loss of consciousness Rapid heart rate When to seek medical advice Call your healthcare provider right away if any of these occur: Fever of 100.4 F (38.0 C) or higher, or as directed by your healthcare provider Symptoms are not better by the third day of treatment Back or belly (abdominal) pain that gets worse Repeated vomiting, or unable to keep medicine down Weakness or dizziness Vaginal discharge Pain, redness, or swelling in the outer vaginal area (labia) [id number] [employer] [address] [place] [address], [place] [address]. All rights reserved. This information is not intended as a substitute for professional medical care. Always follow your healthcare professional's instructions. Additional Information VACCINATE! IT SAVES LIVES! Members of the community who have not yet received the COVID-19 vaccine and would like to receive it can visit one of [facility] vaccine clinics. There are many vaccine clinic locations within the [facility]. For locations and available times, please visit www.gettheshot.coronavirus.[place].gov /. It is important to note that some COVID mobile vaccine clinics are held outdoors and may be canceled in rainy or stormy conditions. To learn more about pediatric vaccinations (ages 5-11), we invite you to visit the [employer] webpage. [email or web address]/page [email or web address]-[email or web address]-[email or web address] -[email or web address]-Questions.html To learn more about the COVID-19 vaccine, we invite you to visit the CDC website for a list of frequently asked questions. https://www.cdc.gov/coronavirus/201 9-ncov/vaccines/faq.html [facility] Patient Portal Access Instructions: Stay connected with your healthcare team and access your personal medical information anytime with the [facility] Patient Portal. If you would like a full copy of your medical records please contact the [facility] Medical Records Department Sunday through Sunday between 8a.m. and 4:30p.m. Please follow the directions below to access the portal: 1.Access the email account you provided upon registration to the hospital.2.Look for an invitation email from [facility].3.Open the email and access the invitation link: Accept Invitation to [facility].Fill in the required baxter to create your account. Sign into [email or web address] with your username and password that you created in the above steps to stay up to date. You can then view a summary of results, a summary of your visits, and the ability to download your summaries to your computer or send the information securely to a physician. Remember that your healthcare information is confidential, so carefully consider who you will allow to register on the [facility] Patient Portal for access to your information. You can also access the [employer] Patient Portal on the [employer]. Simply click on Health Records under Health Data and then click on the [employer] logo. HOW TO SAFELY DISPOSE OF PRESCRIPTION MEDICATIONS Please use one of the following methods to safely dispose of your unused medications. 1.Use a drug disposal kit: the drug disposal pouch allows you to safely discard your old and unused drugs. Ask your nurse to give you one when you are discharged.2.Visit a local take-back location: Many local pharmacies and police departments have programs that collect old and unwanted prescription drugs. Call your local pharmacy or go to http://[employer]/9V0Oc2y to find one close to you.3.Make use of household items: Use cat litter or old coffee grounds to dispose medications if other options are not available. Mix your drugs with these household products, seal them in an airtight container and throw it into the garbage. Call [facility]: [phone] to be sure your drugs can be disposed of in this way. Some medicines may require a different approach.4.Never flush your medications down the toilet. IF YOU HAVE BEEN PRESCRIBED AN OPIOIDS FOR PAIN If you have been prescribed an opioid (such as hydrocodone, oxycodone or morphine), it is critical to understand the possible side effects and risks of opioid pain medications. Even when taken as directed, opioids can have several side effects including: Tolerance, meaning you might need to take more of a medication for the same pain relief. Nausea, vomiting and/or constipation. Sleepiness, dizziness, dry mouth, confusion, depression or itching. Physical dependence, meaning you have withdrawal symptoms when a medication is stopped ? this can develop within a few days. KNOW YOUR RESPONSIBILITIES It is important to know exactly how much and how often to take the opioid pain medications you are prescribed. Never take opioids in higher amounts or more often than prescribed. Do not combine opioids with alcohol or other drugs that cause drowsiness, such as benzodiazepines, also known as benzos, including diazepam and alprazolam, muscle relaxants or sleep aids. Never sell or share prescription opioids. This is illegal. Store opioids in a secure place and out of reach of others (including children, family, friends and visitors). The last page(s) of this document has been signed and retained as a CHART COPY Signatures Patient Education Materials Bladder Infection, Female (Adult) Medication Leaflets My discharge plan and instructions have been reviewed and explained to me and I,JOANNA FAIR understand my current condition and have read and understand these discharge instructions. I have received a written copy of the plan/instructions. If I have questions, I am aware that I should contact my doctor. 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 gonorrhoeae PCR 08/09/24Chlamydia trachomatis PCR 08/09/24Urine Culture 08/09/24 [facility] 07-28-2024 Note Subsequent Exam: Patient seen and examined. Doing well per nurses and self. Pain under good control. Denies MONZON, CP, SOB, dizziness, pain in legs. Ambulating and tolerating PO well. +voids +flatus. Lochia like menses. going okay. Pt is supplementing with donor milk. Baby has elevated bilirubin that is being evaluated. Planning for discharge home tomorrow. Questions/concerns addressed and answered. O: Vitals Signs(Last 24 hrs)__Last Charted Minimum Max imum Temp36.8(JUL 27 16:15)36.8(JUL 27 16:15)36.8(JUL 27 16:15) Heart Rate92(JUL 28 10:16)92(JUL 28 10:16)H 103(JUL 27 16:15) SBP95(JUL 28 10:16)95(JUL 28 10:16)127(JUL 27 16:15) DBP67(JUL 28 10:16)60(JUL 27 23:54)67(JUL 27 16:15) Gen: alert, awake, pleasant, in no distress. Lungs: clear, no wheezes or crackles, equal breath sounds. Heart: RRR without murmur Abd: appropriate tenderness to palpation, Fundus firm and below umbilicus. +BS Ext: no edema, negative Cyndie s sign WBC: 17.7 10^3/mcL High (07/26/24 04:33:00) RBC: 3.69 10^6/mcL Low (07/26/24 04:33:00) Hgb: 8.4 G/dL Low (07/28/24 05:27:00) Hct: 24.9 % Low (07/28/24 05:27:00) MCV: 86.2 fL (07/26/24 04:33:00) MCH: 29.6 pg (07/26/24 04:33:00) MCHC: 34.4 G/dL (07/26/24 04:33:00) RDW: 14.5 % (07/26/24 04:33:00) Platelet: 210 10^3/mcL (07/26/24 04:33:00) MPV: 9 fL (07/26/24 04:33:00) Neutrophil %: 80.7 % High (07/26/24 04:33:00) Lymphocyte %: 11.6 % Low (07/26/24 04:33:00) Monocyte %: 7 % (07/26/24 04:33:00) Eosinophil %: 0.2 % (07/26/24 04:33:00) Basophil %: 0.5 % (07/26/24 04:33:00) Neutrophil, Absolute: 14.3 10^3/mcL High (07/26/24 04:33:00) Lymphocyte, Absolute: 2 10^3/mcL (07/26/24 04:33:00) Monocyte, Absolute: 1.2 10^3/mcL (07/26/24 04:33:00) Eosinophil, Absolute: 0 10^3/mcL (07/26/24 04:33:00) Basophil, Absolute: 0.1 10^3/mcL (07/26/24 04:33:00) RPR: Non-Reactive (07/26/24 04:33:00) ABO/Rh Interp: O NEG (07/26/24 04:33:00) ABSC Interp (Gel): Negative ABSC (07/26/24 04:33:00) Blood Type, External: O negative (07/26/24 03:48:00) Rubella, External: Immune (07/26/24 03:48:00) HIV Antibodies, External: Negative (07/26/24 03:48:00) Group B Strep, External: Negative (07/26/24 03:48:00) Group B Strep Date Performed: 06/25/24 (07/26/24 03:48:00) Hepatitis B, External: Negative (07/26/24 03:48:00) Hepatitis B Date Performed: 01/23/24 (07/26/24 03:48:00) RPR, External: Nonreactive (07/26/24 03:48:00) Medication List Active Medications Ordered acetaminophen: 650 mg, 2 tab(s), Oral, q6h, PRN: Pain, scale 1-3. acetaminophen-hydrocodone: 1 tab(s), Oral, q6h, PRN: Pain, scale 4-6. acetaminophen-hydrocodone: 2 tab(s), Oral, q6h, PRN: Pain, scale 7-10. benzocaine topical: 1 spray(s), Perineum, q1h, PRN: Other (see order comments). benzocaine topical: 1 tawanna, Perineum, AsDirected, PRN: to perineal sutures. bisacodyl: 10 mg, 1 supp, Rectal, qDay, PRN: Constipation. carboprost: 250 mcg, 1 mL, Intramuscular, Once, PRN: Other (see order comments). citric acid-sodium citrate: 30 mL, Oral, AsDirected, PRN: Gastric Upset. docusate: 100 mg, 1 cap(s), Oral, BID, PRN: Constipation. famotidine: 20 mg, 2 mL, IV Push, BID, PRN: Heartburn. glycerin-witch gabe topical: 1 tawanna, Topical, AsDirected, PRN: Hemorrhoids. hydrocortisone-pramoxine topical: 1 tawanna, Perineum, q1h, PRN: hemorrhoidal or perineal discomfort. hydrocortisone topical: 25 mg, 1 supp, Rectal, BID, PRN: hemorrhoidal discomfort. ibuprofen: 600 mg, 1 tab(s), Oral, q6h, PRN: uterine cramping. lanolin topical: 7 g, 1 EA, Topical, AsDirected, PRN: Other (see order comments). lidocaine: 20 mg, 2 mL, Perineum, AsDirected, PRN: to perineal sutures. methylergonovine: 0.2 mg, 1 mL, Intramuscular, Once, PRN: Other (see order comments). miSOPROStol: 1,000 mcg, 5 tab(s), Rectal, Once, PRN: Other (see order comments). oxytocin: 20 unit(s), 2 mL, Intramuscular, Once, PRN: Other (see order comments). oxytocin 20 unit(s) + LR Premix Diluent 500 mL: 500 mL/hr, Intravenous. oxytocin 20 unit(s) + LR Premix Diluent 500 mL: 62.5 mL/hr, Intravenous. RHo (D) immune globulin: 300 mcg, 2 mL, Intramuscular, AsDirected, PRN: if Rh factor neg per policy. simethicone: 80 mg, 1 tab(s), Chewed, TID, PRN: Dyspepsia. sodium biphosphate-sodium phosphate: 133 mL, Rectal, qDay, PRN: Constipation. zolpidem: 5 mg, 1 tab(s), Oral, qHS, PRN: Sleep. Prescribed docusate: 100 mg, 1 cap(s), Oral, BID, PRN: Constipation, 180 cap(s), 0 Refill(s). ibuprofen: 600 mg, 1 tab(s), Oral, QID, 40 tab(s), 0 Refill(s). Documented calcium carbonate-magnesium carbonate: 1 tab(s), Oral, TID, with meals, 150 tab(s), 0 Refill(s). ferrous sulfate: 325 mg, 1 tab(s), Oral, BID, 100 tab(s), 0 Refill(s). multivitamin, : 1 tab(s), Oral, Daily, 30 tab(s), 0 Refill(s). multivitamin with minerals: 1 tab(s), Oral, qDay, 30 tab(s), 0 Refill(s). Medications Inactivated in the Last 72 Hours bupivacaine-fentanyl: Miscellaneous, Once. bupivacaine-fentanyl 100 mL: 10 mL/hr, Epidural. carboprost: 250 mcg, 1 mL, Intramuscular, Once, PRN: Other (see order comments). citric acid-sodium citrate: 30 mL, Oral, AsDirected, PRN: Gastric Upset. Lactated Ringers Infusion: 500 mL, IV Bolus, AsDirected, PRN: Other (see order comments). Lactated Ringers Infusion 1,000 mL: 125 mL/hr, Intravenous. lidocaine: 100 mg, 10 mL, Perineum, AsDirected, PRN: to perineal sutures. methylergonovine: 0.2 mg, 1 mL, Intramuscular, Once, PRN: Other (see order comments). miSOPROStol: 1,000 mcg, 5 tab(s), Rectal, Once, PRN: Other (see order comments). nalbuphine: 10 mg, 1 mL, IV Push, q2h, PRN: Itching. naloxone: 0.1 mg, 0.25 mL, IV Push, AsDirected, PRN: Control symptoms. naloxone: 0.4 mg, 1 mL, IV Push, AsDirected, PRN: Control symptoms. ondansetron: 4 mg, 2 mL, IV Push, q4h, PRN: Nausea. ondansetron: 4 mg, 2 mL, IV Push, q4h, PRN: Nausea/Vomiting. oxytocin: Miscellaneous, Once. oxytocin: Miscellaneous, Once. oxytocin: 20 unit(s), 2 mL, Intramuscular, Once, PRN: Other (see order comments). oxytocin 20 unit(s) [2 munit/min] + LR Premix Diluent 500 mL: 3 mL/hr, Intravenous. oxytocin 20 unit(s) + LR Premix Diluent 500 mL: 500 mL/hr, Intravenous. terbutaline: 0.25 mg, 0.25 mL, Subcutaneous, AsDirected, PRN: Control symptoms. terbutaline: 0.25 mg, 0.25 mL, Subcutaneous, AsDirected, PRN: Other (see order comments). tetanus/diphth/pertuss (Tdap) adult/adol: 0.5 mL, Intramuscular, Vaccine. tranexamic acid: 1 gram(s), 100 mL, 300 mL/hr, IV Piggyback, AsDirected, PRN: Other (see order comments). A: 34 yo now s/p PPD #1 P: 1. Routine care 2. 3. Plan for discharge tomorrow. Digitally Signed by HELADIO BOO DO on 07/28/2024 01:33 PM [facility] 07-27-2024 Hospital Discharge instructions Patient Education 07/27/2024 11:02:57 Choosing to breastfeed is one of the best decisions you can make for yourself and your baby. A change in hormones during causes your breasts to make breast milk in your milk-producing glands. Hormones prevent breast milk from being released before your baby is born. They also prompt milk flow after . Once has begun, thoughts of your baby, as well as his or her sucking or crying, can stimulate the release of milk from your milk-producing glands. Benefits of Research shows that offers many health benefits for infants and mothers. It also offers a cost-free and convenient way to feed your baby. For your baby Your first milk (colostrum) helps your baby's digestive system to function better. Special cells in your milk (antibodies) help your baby to fight off infections. Breastfed babies are less likely to develop asthma, allergies, obesity, or type 2 diabetes. They are also at lower risk for sudden syndrome (SIDS). Nutrients in breast milk are better able to meet your baby s needs compared to infant formula. Breast milk improves your baby's brain development. For you helps to create a very special trujillo between you and your baby. is convenient. Breast milk costs nothing and is always available at the correct temperature. helps to burn calories. It helps you to lose the weight that you gained during . makes your uterus return faster to its size before . It also slows bleeding (lochia) after you give . helps to lower your risk of developing type 2 diabetes, osteoporosis, rheumatoid arthritis, cardiovascular disease, and breast, ovarian, uterine, and endometrial cancer later in life. basics Starting Find a comfortable place to sit or lie down, with your neck and back well-supported. Place a pillow or a rolled-up blanket under your baby to bring him or her to the level of your breast (if you are seated). Nursing pillows are specially designed to help support your arms and your baby while you breastfeed. Make sure that your baby's tummy (abdomen) is facing your abdomen. Gently massage your breast. With your fingertips, massage from the outer edges of your breast inward toward the nipple. This encourages milk flow. If your milk flows slowly, you may need to continue this action during the feeding. Support your breast with 4 fingers underneath and your thumb above your nipple (make the letter C with your hand). Make sure your fingers are well away from your nipple and your baby s mouth. Stroke your baby's lips gently with your finger or nipple. When your baby's mouth is open wide enough, quickly bring your baby to your breast, placing your entire nipple and as much of the areola as possible into your baby's mouth. The areola is the colored area around your nipple. ?More areola should be visible above your baby's upper lip than below the lower lip. ?Your baby's lips should be opened and extended outward (flanged) to ensure an adequate, comfortable latch. ?Your baby's tongue should be between his or her lower gum and your breast. Make sure that your baby's mouth is correctly positioned around your nipple (latched). Your baby's lips should create a seal on your breast and be turned out (everted). It is common for your baby to suck about 2 3 minutes in order to start the flow of breast milk. Latching Teaching your baby how to latch onto your breast properly is very important. An improper latch can cause nipple pain, decreased milk supply, and poor weight gain in your baby. Also, if your baby is not latched onto your nipple properly, he or she may swallow some air during feeding. This can make your baby fussy. Burping your baby when you switch breasts during the feeding can help to get rid of the air. However, teaching your baby to latch on properly is still the best way to prevent fussiness from swallowing air while . Signs that your baby has successfully latched onto your nipple Silent tugging or silent sucking, without causing you pain. 's lips should be extended outward (flanged). Swallowing heard between every 3 4 sucks once your milk has started to flow (after your let-down milk reflex occurs). Muscle movement above and in front of his or her ears while sucking. Signs that your baby has not successfully latched onto your nipple Sucking sounds or smacking sounds from your baby while . Nipple pain. If you think your baby has not latched on correctly, slip your finger into the corner of your baby s mouth to break the suction and place it between your baby's gums. Attempt to start again. Signs of successful Signs from your baby Your baby will gradually decrease the number of sucks or will completely stop sucking. Your baby will fall asleep. Your baby's body will relax. Your baby will retain a small amount of milk in his or her mouth. Your baby will let go of your breast by himself or herself. Signs from you Breasts that have increased in firmness, weight, and size 1 3 hours after feeding. Breasts that are softer immediately after . Increased milk volume, as well as a change in milk consistency and color by the fifth day of . Nipples that are not sore, cracked, or bleeding. Signs that your baby is getting enough milk Wetting at least 1 2 diapers during the first 24 hours after . Wetting at least 5 6 diapers every 24 hours for the first week after . The urine should be clear or pale yellow by the age of 5 days. Wetting 6 8 diapers every 24 hours as your baby continues to grow and develop. At least 3 stools in a 24-hour period by the age of 5 days. The stool should be soft and yellow. At least 3 stools in a 24-hour period by the age of 7 days. The stool should be seedy and yellow. No loss of weight greater than 10% of weight during the first 3 days of life. Average weight gain of 4 7 oz (113 198 g) per week after the age of 4 days. Consistent daily weight gain by the age of 5 days, without weight loss after the age of 2 weeks. After a feeding, your baby may spit up a small amount of milk. This is normal. frequency and duration Frequent feeding will help you make more milk and can prevent sore nipples and extremely full breasts (breast engorgement). Breastfeed when you feel the need to reduce the fullness of your breasts or when your baby shows signs of hunger. This is called on demand. Signs that your baby is hungry include: Increased alertness, activity, or restlessness. Movement of the head from side to side. Opening of the mouth when the corner of the mouth or cheek is stroked (rooting). Increased sucking sounds, smacking lips, cooing, sighing, or squeaking. Zllh-fo-mjoip movements and sucking on fingers or hands. Fussing or crying. Avoid introducing a pacifier to your baby in the first 4-6 weeks after your baby is born. After this time, you may choose to use a pacifier. Research has shown that pacifier use during the first year of a baby's life decreases the risk of sudden syndrome (SIDS). Allow your baby to feed on each breast as long as he or she wants. When your baby unlatches or falls asleep while feeding from the first breast, offer the second breast. Because newborns are often sleepy in the first few weeks of life, you may need to awaken your baby to get him or her to feed. times will vary from baby to baby. However, the following rules can serve as a guide to help you make sure that your baby is properly fed: Newborns (babies 4 weeks of age or younger) may breastfeed every 1 3 hours. Newborns should not go without for longer than 3 hours during the day or 5 hours during the night. You should breastfeed your baby a minimum of 8 times in a 24-hour period. Breast milk pumping Pumping and storing breast milk allows you to make sure that your baby is exclusively fed your breast milk, even at times when you are unable to breastfeed. This is especially important if you go back to work while you are still , or if you are not able to be present during feedings. Your java consultant can help you find a method of pumping that works best for you and give you guidelines about how long it is safe to store breast milk. Caring for your breasts while you breastfeed Nipples can become dry, cracked, and sore while . The following recommendations can help keep your breasts moisturized and healthy: Avoid using soap on your nipples. Wear a supportive bra designed especially for nursing. Avoid wearing underwire-style bras or extremely tight bras (sports bras). Air-dry your nipples for 3 4 minutes after each feeding. Use only cotton bra pads to absorb leaked breast milk. Leaking of breast milk between feedings is normal. Use lanolin on your nipples after . Lanolin helps to maintain your skin's normal moisture barrier. Pure lanolin is not harmful (not toxic) to your baby. You may also hand express a few drops of breast milk and gently massage that milk into your nipples and allow the milk to air-dry. In the first few weeks after giving , some women experience breast engorgement. Engorgement can make your breasts feel heavy, warm, and tender to the touch. Engorgement peaks within 3 5 days after you give . The following recommendations can help to ease engorgement: Completely empty your breasts while or pumping. You may want to start by applying warm, moist heat (in the shower or with warm, water-soaked hand towels) just before feeding or pumping. This increases circulation and helps the milk flow. If your baby does not completely empty your breasts while , pump any extra milk after he or she is finished. Apply ice packs to your breasts immediately after or pumping, unless this is too uncomfortable for you. To do this: ?Put ice in a plastic bag. ?Place a towel between your skin and the bag. ?Leave the ice on for 20 minutes, 2 3 times a day. Make sure that your baby is latched on and positioned properly while . If engorgement persists after 48 hours of following these recommendations, contact your health care provider or a java consultant. Overall health care recommendations while Eat 3 healthy meals and 3 snacks every day. Well-nourished mothers who are need an additional 450 500 calories a day. You can meet this requirement by increasing the amount of a balanced diet that you eat. Drink enough water to keep your urine pale yellow or clear. Rest often, relax, and continue to take your vitamins to prevent fatigue, stress, and low vitamin and mineral levels in your body (nutrient deficiencies). Do not use any products that contain nicotine or tobacco, such as cigarettes and e-cigarettes. Your baby may be harmed by chemicals from cigarettes that pass into breast milk and exposure to secondhand smoke. If you need help quitting, ask your health care provider. Avoid alcohol. Do not use illegal drugs or marijuana. Talk with your health care provider before taking any medicines. These include qzir-azt-[id number] and prescription medicines as well as vitamins and herbal supplements. Some medicines that may be harmful to your baby can pass through breast milk. It is possible to become while . If control is desired, ask your health care provider about options that will be safe while your baby. Where to find more information: [employer]: www.llli.org Contact a health care provider if: You feel like you want to stop or have become frustrated with . Your nipples are cracked or bleeding. Your breasts are red, tender, or warm. You have: ?Painful breasts or nipples. ?A swollen area on either breast. ?A fever or chills. ?Nausea or vomiting. ?Drainage other than breast milk from your nipples. Your breasts do not become full before feedings by the fifth day after you give . You feel sad and depressed. Your baby is: ?Too sleepy to eat well. ?Having trouble sleeping. ?More than 1 week old and wetting fewer than 6 diapers in a 24-hour period. ?Not gaining weight by 5 days of age. Your baby has fewer than 3 stools in a 24-hour period. Your baby's skin or the white parts of his or her eyes become yellow. Get help right away if: Your baby is overly tired (lethargic) and does not want to wake up and feed. Your baby develops an unexplained fever. Summary offers many health benefits for and mothers. Try to breastfeed your when he or she shows early signs of hunger. Gently tickle or stroke your baby's lips with your finger or nipple to allow the baby to open his or her mouth. Bring the baby to your breast. Make sure that much of the areola is in your baby's mouth. Offer one side and burp the baby before you offer the other side. Talk with your health care provider or java consultant if you have questions or you face problems as you breastfeed. This information is not intended to replace advice given to you by your health care provider. Make sure you discuss any questions you have with your health care provider. Document Released: 07/30/2006 Document Revised: 10/24/2018 Document Reviewed: 08/31/2017 [employer] Patient Education 2020 [employer]. 07/27/2024 11:02:52 Vaginal Laceration Vaginal Laceration A vaginal laceration is a cut or tear of the opening of the vagina, the inside of the vaginal canal, or the skin between the vaginal opening and the anus (perineum). What are the causes? This condition may be caused by: Childbirth. It may also be caused by tools that are used to help deliver a baby, such as forceps. Sex. An injury from sports, bike riding, or other activities. Thinning, dryness, or irritation of the vagina due to low estrogen levels (vulvovaginal atrophy). What increases the risk? You are more likely to develop this condition if you: Give vaginally. Are sexually active. Have gone through menopause. Have low estrogen levels due to certain medicines, breast cancer treatments, or . What are the signs or symptoms? Symptoms of this condition include: Slight to heavy vaginal bleeding. Vaginal swelling. Mild to severe pain. Vaginal tenderness. Painful urination. Pain or discomfort during sex. How is this diagnosed? If the tear happened during childbirth, your health care provider can diagnose the tear at that time. Other tears or lacerations can be diagnosed with your medical history and a physical exam. You may have other tests, including: Blood tests to check your hormone levels and blood loss. Imaging tests, such as an ultrasonogram or CT scan, to rule out other health issues, such as enlarged lymph nodes or tumors. How is this treated? Treatment depends on the severity of the tear or laceration. Minor injuries may heal on their own. If needed, this condition may be treated with: Stitches (sutures). Medicines, such as: ?Creams to reduce pain. ?Vaginal lubricants to treat vaginal dryness. ?Topical or oral hormonal therapy. ?Antibiotics. These may be taken orally or given as ointments to prevent or treat infection. Surgery may be needed if the tear is severe. Follow these instructions at home: Wound care Follow instructions from your health care provider about how to take care of your wound. Make sure you: ?Wash your hands with soap and water before and after you change your bandage (dressing). If soap and water are not available, use hand diesel locomotive firer/fireman. ?Change your dressing as told by your health care provider. ?Keep the area clean. ?Leave sutures in place, if this applies. These skin closures may need to stay in place for 2 weeks or longer. Check your wound every day for signs of infection. Check for: ?Redness, swelling, or pain. ?Fluid or blood. ?Warmth. ?Pus or a bad smell. Managing pain and swelling If directed, put ice on the injured area: ?Put ice in a plastic bag. ?Place a towel between your skin and the bag. ?Leave the ice on for 20 minutes, 2 3 times a day. Medicines Take or apply mvqd-rsx-fkrrvzq and prescription medicines only as told by your health care provider. If you were prescribed an antibiotic medicine, take it as told by your health care provider. Do not stop using the antibiotic even if you start to feel better. Ask your health care provider if the medicine prescribed to you: ?Requires you to avoid driving or using heavy machinery. ?Can cause constipation. You may need to take actions to prevent or treat constipation, such as: ?Drink enough fluid to keep your urine pale yellow. ?Take nfyj-fpp-[id number] or prescription medicines. ?Eat foods that are high in fiber, such as beans, whole grains, and fresh fruits and vegetables. ?Limit foods that are high in fat and processed sugars, such as fried or sweet foods. General instructions Take a sitz bath 2 3 times a day or as told by your health care provider. A sitz bath is a shallow, warm water bath that is taken while you are sitting down. The water should only come up to your hips and should cover your buttocks. Avoid sitting or standing for long periods of time. Lie on your side while sleeping or resting. Avoid straining during bowel movements. Ask your health care provider if a stool softener is needed. Do not douche, use a tampon, or have sex until your health care provider approves. Keep all follow-up visits as told by your health care provider. This is important. Contact a health care provider if: You have: ?More redness, swelling, or pain in the vaginal area. ?More fluid or blood coming from your vaginal tear. ?Pus or a bad smell coming from your vaginal area. ?A fever. ?A tear that breaks open after it healed or was repaired. ?A burning pain when you urinate. You continue to have pain during sex after the tear heals. You are urinating more often than usual or feel an increased urgency to urinate. Get help right away if you: Feel light-headed. Have nausea or vomiting. Have severe pain around your vagina or in your pelvis or lower abdomen. Have heavy vaginal bleeding, or you are soaking more than 1 pad an hour. Summary A vaginal laceration is a cut or tear of the opening of the vagina, the inside of the vaginal canal, or the skin between the vaginal opening and the anus (perineum). It is caused by childbirth, sex, injury, or thinning, dryness, or irritation of the vagina due to low estrogen levels. Treatment depends on the severity of the tear or laceration. Minor injuries may heal on their own. It may be treated with stitches, medicines, or surgery if the tear is severe. This information is not intended to replace advice given to you by your health care provider. Make sure you discuss any questions you have with your health care provider. Document Released: 07/30/2006 Document Revised: 03/13/2019 Document Reviewed: 03/13/2019 [employer] Patient Education 2020 [employer]. 07/27/2024 11:02:50 Care After Vaginal Delivery Care After Vaginal Delivery This sheet gives you information about how to care for yourself from the time you deliver your baby to up to 6 12 weeks after delivery ( period). Your health care provider may also give you more specific instructions. If you have problems or questions, contact your health care provider. Follow these instructions at home: Vaginal bleeding It is normal to have vaginal bleeding (lochia) after delivery. Wear a sanitary pad for vaginal bleeding and discharge. ?During the first week after delivery, the amount and appearance of lochia is often similar to a menstrual period. ?Over the next few weeks, it will gradually decrease to a dry, yellow-brown discharge. ?For most women, lochia stops completely by 4 6 weeks after delivery. Vaginal bleeding can vary from woman to woman. Change your sanitary pads frequently. Watch for any changes in your flow, such as: ?A sudden increase in volume. ?A change in color. ?Large blood clots. If you pass a blood clot from your vagina, save it and call your health care provider to discuss. Do not flush blood clots down the toilet before talking with your health care provider. Do not use tampons or douches until your health care provider says this is safe. If you are not , your period should return 6 8 weeks after delivery. If you are feeding your child breast milk only (exclusive ), your period may not return until you stop . Perineal care Keep the area between the vagina and the anus (perineum) clean and dry as told by your health care provider. Use medicated pads and pain-relieving sprays and creams as directed. If you had a cut in the perineum (episiotomy) or a tear in the vagina, check the area for signs of infection until you are healed. Check for: ?More redness, swelling, or pain. ?Fluid or blood coming from the cut or tear. ?Warmth. ?Pus or a bad smell. You may be given a squirt bottle to use instead of wiping to clean the perineum area after you go to the bathroom. As you start healing, you may use the squirt bottle before wiping yourself. Make sure to wipe gently. To relieve pain caused by an episiotomy, a tear in the vagina, or swollen veins in the anus (hemorrhoids), try taking a warm sitz bath 2 3 times a day. A sitz bath is a warm water bath that is taken while you are sitting down. The water should only come up to your hips and should cover your buttocks. Breast care Within the first few days after delivery, your breasts may feel heavy, full, and uncomfortable (breast engorgement). Milk may also leak from your breasts. Your health care provider can suggest ways to help relieve the discomfort. Breast engorgement should go away within a few days. If you are : ?Wear a bra that supports your breasts and fits you well. ?Keep your nipples clean and dry. Apply creams and ointments as told by your health care provider. ?You may need to use breast pads to absorb milk that leaks from your breasts. ?You may have uterine contractions every time you breastfeed for up to several weeks after delivery. Uterine contractions help your uterus return to its normal size. ?If you have any problems with , work with your health care provider or java consultant. If you are not : ?Avoid touching your breasts a lot. Doing this can make your breasts produce more milk. ?Wear a good-fitting bra and use cold packs to help with swelling. ?Do not squeeze out (express) milk. This causes you to make more milk. Intimacy and sexuality Ask your health care provider when you can engage in sexual activity. This may depend on: ?Your risk of infection. ?How fast you are healing. ?Your comfort and desire to engage in sexual activity. You are able to get after delivery, even if you have not had your period. If desired, talk with your health care provider about methods of control (contraception). Medicines Take [id number] and prescription medicines only as told by your health care provider. If you were prescribed an antibiotic medicine, take it as told by your health care provider. Do not stop taking the antibiotic even if you start to feel better. Activity Gradually return to your normal activities as told by your health care provider. Ask your health care provider what activities are safe for you. Rest as much as possible. Try to rest or take a nap while your baby is sleeping. Eating and drinking Drink enough fluid to keep your urine pale yellow. Eat high-fiber foods every day. These may help prevent or relieve constipation. High-fiber foods include: ?Whole grain cereals and breads. ?Brown rice. ?Beans. ?Fresh fruits and vegetables. Do not try to lose weight quickly by cutting back on calories. Take your vitamins until your checkup or until your health care provider tells you it is okay to stop. Lifestyle Do not use any products that contain nicotine or tobacco, such as cigarettes and e-cigarettes. If you need help quitting, ask your health care provider. Do not drink alcohol, especially if you are . General instructions Keep all follow-up visits for you and your baby as told by your health care provider. Most women visit their health care provider for a checkup within the first 3 6 weeks after delivery. Contact a health care provider if: You feel unable to cope with the changes that your child brings to your life, and these feelings do not go away. You feel unusually sad or worried. Your breasts become red, painful, or hard. You have a fever. You have trouble holding urine or keeping urine from leaking. You have little or no interest in activities you used to enjoy. You have not breastfed at all and you have not had a menstrual period for 12 weeks after delivery. You have stopped and you have not had a menstrual period for 12 weeks after you stopped . You have questions about caring for yourself or your baby. You pass a blood clot from your vagina. Get help right away if: You have chest pain. You have difficulty breathing. You have sudden, severe leg pain. You have severe pain or cramping in your lower abdomen. You bleed from your vagina so much that you fill more than one sanitary pad in one hour. Bleeding should not be heavier than your heaviest period. You develop a severe headache. You faint. You have blurred vision or spots in your vision. You have bad-smelling vaginal discharge. You have thoughts about hurting yourself or your baby. If you ever feel like you may hurt yourself or others, or have thoughts about taking your own life, get help right away. You can go to the nearest emergency department or call: Your local emergency services (911 in the [place] A suicide crisis helpline, such as the National Suicide Prevention Lifeline at . This is open 24 hours a day. Summary The period of time right after you deliver your up to 6 12 weeks after delivery is called the period. Gradually return to your normal activities as told by your health care provider. Keep all follow-up visits for you and your baby as told by your health care provider. This information is not intended to replace advice given to you by your health care provider. Make sure you discuss any questions you have with your health care provider. Document Released: 05/26/2008 Document Revised: 08/02/2018 Document Reviewed: 05/13/2018 [employer] Patient Education 2020 [employer]. Follow Up Care 07/26/2024 03:36:25 With:[facility] Address: DR HELADIO BOO [address] [phone] When:Within 6 Week(s) Comments: [facility] 07-27-2024 Anesthesiology Consult note Patient: JOANNA FAIR Age: 34 years Sex: Female : 1990 Associated Diagnoses: None Author: [facility]ER[facility]-INDUSTRIAL NURSE Preoperative Information Time of last food or liquid consumption: 07/27/2024 02:00:00 Anesthesia history Patient's history: negative. Family's history: negative. Review of Systems Ear/Nose/Mouth/Throat: Negative. Respiratory: Negative. Cardiovascular: Negative. Gastrointestinal: obese. Genitourinary: Negative. Endocrine: Negative. Musculoskeletal: Negative. Integumentary: Negative. Neurologic: Negative. Health Status Allergies: Allergic Reactions (Selected) NKA, Allergies (1) ActiveSeverityReaction NKANone Documented Current medications: (Selected) Inpatient Medications Ordered Ambien: 5 mg, 1 tab(s), Oral, qHS, PRN: Sleep [place] Hemorrhoidal 20% rectal ointment: 1 tawanna, Perineum, AsDirected, PRN: to perineal sutures Analpram-HC 2.5%-1% rectal cream: 1 tawanna, Perineum, q1h, PRN: hemorrhoidal or perineal discomfort Anusol-HC 25 mg rectal suppository: 25 mg, 1 supp, Rectal, BID, PRN: hemorrhoidal discomfort Bicitra: 30 mL, Oral, AsDirected, PRN: Gastric Upset Boostrix (Tdap): 0.5 mL, Intramuscular, Vaccine Colace: 100 mg, 1 cap(s), Oral, BID, PRN: Constipation Cytotec: 1,000 mcg, 5 tab(s), Rectal, Once, PRN: Other (see order comments) Dermoplast topical spray: 1 spray(s), Perineum, q1h, PRN: Other (see order comments) Dulcolax Laxative: 10 mg, 1 supp, Rectal, qDay, PRN: Constipation Fleet Enema: 133 mL, Rectal, qDay, PRN: Constipation Hemabate: 250 mcg, 1 mL, Intramuscular, Once, PRN: Other (see order comments) Lansinoh for Breast Feeding Mothers: 7 g, 1 EA, Topical, AsDirected, PRN: Other (see order comments) Methergine: 0.2 mg, 1 mL, Intramuscular, Once, PRN: Other (see order comments) Motrin: 600 mg, 1 tab(s), Oral, q6h, PRN: uterine cramping Mylicon: 80 mg, 1 tab(s), Chewed, TID, PRN: Dyspepsia [place] 325- 5 mg oral tablet: 1 tab(s), Oral, q6h, PRN: Pain, scale 4-6 [place] 325- 5 mg oral tablet: 2 tab(s), Oral, q6h, PRN: Pain, scale 7-10 Oxytocin for IV (mL/hr) 20 unit(s) + LR Premix Diluent 500 mL: 500 mL/hr, Intravenous Oxytocin for IV (mL/hr) 20 unit(s) + LR Premix Diluent 500 mL: 62.5 mL/hr, Intravenous Pepcid: 20 mg, 2 mL, IV Push, BID, PRN: Heartburn Pitocin: 20 unit(s), 2 mL, Intramuscular, Once, PRN: Other (see order comments) Rhophylac: 300 mcg, 2 mL, Intramuscular, AsDirected, PRN: if Rh factor neg per policy Tylenol: 650 mg, 2 tab(s), Oral, q6h, PRN: Pain, scale 1-3 Xylocaine HCl 1% injectable solution: 20 mg, 2 mL, Perineum, AsDirected, PRN: to perineal sutures glycerin-witch gabe 50% topical pad: 1 tawanna, Topical, AsDirected, PRN: Hemorrhoids Prescriptions Prescribed Colace 100 mg oral capsule: 100 mg, 1 cap(s), Oral, BID, PRN: Constipation, 180 cap(s), 0 Refill(s) IBU 600 mg oral tablet: 600 mg, 1 tab(s), Oral, QID, 40 tab(s), 0 Refill(s) Documented Medications Documented AD oral tablet: 1 tab(s), Oral, Daily, 30 tab(s), 0 Refill(s) Vitamin D with Minerals oral tablet: 1 tab(s), Oral, qDay, 30 tab(s), 0 Refill(s) calcium carbonate-magnesium carbonate 200 mg-400 mg oral tablet: 1 tab(s), Oral, TID, with meals, 150 tab(s), 0 Refill(s) ferrous sulfate 325 mg (65 mg elemental iron) oral tablet: 325 mg, 1 tab(s), Oral, BID, 100 tab(s), 0 Refill(s), Medications (26) Active Scheduled: (1) tetanus/diphth/pertuss (Tdap) adult/adol 5 units-2.5 units-18.5 mcg/0.5 mL (Boostrix) 0.5 mL, Intramuscular, Vaccine Continuous: (2) oxytocin 20 unit(s) + LR Premix Diluent 500 mL 500 mL, Intravenous, 500 mL/hr oxytocin 20 unit(s) + LR Premix Diluent 500 mL 500 mL, Intravenous, 62.5 mL/hr PRN: (23) acetaminophen 325 mg Tablet 650 mg 2 tab(s), Oral, q6h acetaminophen-HYDROcodone 325-5 mg tablet 1 tab(s), Oral, q6h acetaminophen-HYDROcodone 325-5 mg tablet 2 tab(s), Oral, q6h benzocaine topical 20% Ointment 1 tawanna, Perineum, AsDirected benzocaine topical 20% [place] 1 spray(s), Perineum, q1h bisacodyl 10 mg Suppository 10 mg 1 supp, Rectal, qDay carboprost 250 mcg/ml 1mL ampule 250 mcg 1 mL, Intramuscular, Once citric acid-sodium citrate 334 mg-500 mg/5 mL (30 mL) Shayla UD 30 mL, Oral, AsDirected docusate sodium 100 mg Capsule 100 mg 1 cap(s), Oral, BID famotidine 20 mg/2 mL vial 20 mg 2 mL, IV Push, BID glycerin-witch gabe topical 10%-50% Pad 1 tawanna, Topical, AsDirected hydrocortisone topical 25 mg rectal supp 25 mg 1 supp, Rectal, BID hydrocortisone-pramoxine topical 2.5%-1% Cream 4 gram(s) 1 tawanna, Perineum, q1h ibuprofen 600 mg tablet 600 mg 1 tab(s), Oral, q6h lanolin (purified) 7 g 1 EA, Topical, AsDirected lidocaine 1% (MPF) 2 mL vial pf 20 mg 2 mL, Perineum, AsDirected methylergonovine 0.2 mg/mL (1 mL) ampule 0.2 mg 1 mL, Intramuscular, Once misoprostol 200 mcg tablet 1,000 mcg 5 tab(s), Rectal, Once oxytocin 10 units/mL 1 mL vial 20 unit(s) 2 mL, Intramuscular, Once RHo (D) immune globulin 300 mcg/2 mL Soln 300 mcg 2 mL, Intramuscular, AsDirected simethicone 80 mg Chewable 80 mg 1 tab(s), Chewed, TID sodium biphosphate-sodium phosphate 19 gm-7 gm Enema 133 mL, Rectal, qDay zolpidem 5 mg tablet 5 mg 1 tab(s), Oral, qHS Problem list: Medical / SNOMED CT [id number] / Confirmed / SNOMED CT [id number] / Confirmed, Active Problems (2) Histories Past Medical History: No active or resolved past medical history items have been selected or recorded. Family History: No family history items have been selected or recorded. Procedure history: Uterine polyp ([id number]). Comments: 07/26/2024 4:05 Rajani Robert RN with surgical removal 2011 Social History: Social & Psychosocial Habits Alcohol 07/26/2024 Use: Never Substance Abuse 07/26/2024 Use: Never Tobacco 07/26/2024 Tobacco Use: Never (less than 100 in l Physical Examination Vital Signs 07/27/2024 10:15 EST Temperature Temporal Artery 36.8 DegC Heart Rate Monitored 101 bpm HI Respiratory Rate 18 br/min Systolic Blood Pressure Non-Invasive 100 mmHg Diastolic Blood Pressure Non-Invasive 54 mmHg LOW Reason For Taking VItal Signs Routine 07/27/2024 10:00 EST Temperature Temporal Artery 36.7 DegC Heart Rate Monitored 102 bpm HI Respiratory Rate 18 br/min Systolic Blood Pressure Non-Invasive 114 mmHg Diastolic Blood Pressure Non-Invasive 59 mmHg LOW Reason For Taking VItal Signs Routine 07/27/2024 9:45 EST Temperature Temporal Artery 36.7 DegC Heart Rate Monitored 103 bpm HI Respiratory Rate 18 br/min Systolic Blood Pressure Non-Invasive 105 mmHg Diastolic Blood Pressure Non-Invasive 72 mmHg Blood Pressure Method Automatic Blood Pressure Location Right arm Blood Pressure Cuff Size Large Reason For Taking VItal Signs Routine 07/27/2024 9:30 EST Heart Rate Monitored 103 bpm HI Respiratory Rate 18 br/min Systolic Blood Pressure Non-Invasive 101 mmHg Diastolic Blood Pressure Non-Invasive 72 mmHg Reason For Taking VItal Signs Routine 07/27/2024 9:15 EST Heart Rate Monitored 102 bpm HI Respiratory Rate 18 br/min Systolic Blood Pressure Non-Invasive 73 mmHg LOW Diastolic Blood Pressure Non-Invasive 47 mmHg Reason For Taking VItal Signs Routine 07/27/2024 9:10 EST Temperature Temporal Artery 36.6 DegC Heart Rate Monitored 119 bpm HI Respiratory Rate 18 br/min Systolic Blood Pressure Non-Invasive 91 mmHg Diastolic Blood Pressure Non-Invasive 68 mmHg Reason For Taking VItal Signs Routine 07/27/2024 9:00 EST Heart Rate Monitored 119 bpm HI Respiratory Rate 18 br/min Systolic Blood Pressure Non-Invasive 86 mmHg LOW Diastolic Blood Pressure Non-Invasive 45 mmHg Reason For Taking VItal Signs Routine 07/27/2024 8:45 EST Temperature Temporal Artery 37.0 DegC Heart Rate Monitored 131 bpm HI Respiratory Rate 18 br/min Systolic Blood Pressure Non-Invasive 85 mmHg LOW Diastolic Blood Pressure Non-Invasive 38 mmHg Reason For Taking VItal Signs Routine 07/27/2024 8:30 EST Heart Rate Monitored 111 bpm HI Respiratory Rate 16 br/min Systolic Blood Pressure Non-Invasive 106 mmHg Diastolic Blood Pressure Non-Invasive 66 mmHg Reason For Taking VItal Signs Routine 07/27/2024 8:15 EST Heart Rate Monitored 104 bpm HI Respiratory Rate 16 br/min Systolic Blood Pressure Non-Invasive 100 mmHg Diastolic Blood Pressure Non-Invasive 54 mmHg LOW Reason For Taking VItal Signs Routine 07/27/2024 8:00 EST Temperature Temporal Artery 36.1 DegC Heart Rate Monitored 105 bpm HI Respiratory Rate 16 br/min Systolic Blood Pressure Non-Invasive 107 mmHg Diastolic Blood Pressure Non-Invasive 61 mmHg Reason For Taking VItal Signs Routine 07/27/2024 7:45 EST Heart Rate Monitored 103 bpm HI Respiratory Rate 16 br/min Systolic Blood Pressure Non-Invasive 69 mmHg LOW Diastolic Blood Pressure Non-Invasive 33 mmHg Reason For Taking VItal Signs Routine 07/27/2024 7:30 EST Heart Rate Monitored 94 bpm Respiratory Rate 16 br/min Systolic Blood Pressure Non-Invasive 70 mmHg LOW Diastolic Blood Pressure Non-Invasive 36 mmHg Reason For Taking VItal Signs Routine 07/27/2024 7:15 EST Temperature Temporal Artery 36.2 DegC Heart Rate Monitored 102 bpm HI Respiratory Rate 16 br/min Systolic Blood Pressure Non-Invasive 79 mmHg LOW Diastolic Blood Pressure Non-Invasive 36 mmHg Blood Pressure Method Automatic Blood Pressure Location Right arm Blood Pressure Cuff Size Large Reason For Taking VItal Signs Routine 07/27/2024 7:00 EST Heart Rate Monitored 97 bpm Systolic Blood Pressure Non-Invasive 81 mmHg LOW Diastolic Blood Pressure Non-Invasive 38 mmHg Reason For Taking VItal Signs Routine 07/27/2024 6:50 EST Temperature Temporal Artery 36.5 DegC Heart Rate Monitored 109 bpm HI Systolic Blood Pressure Non-Invasive 88 mmHg LOW Diastolic Blood Pressure Non-Invasive 35 mmHg Reason For Taking VItal Signs Routine 07/27/2024 6:30 EST Heart Rate Monitored 110 bpm HI Systolic Blood Pressure Non-Invasive 106 mmHg Diastolic Blood Pressure Non-Invasive 71 mmHg Reason For Taking VItal Signs Routine 07/27/2024 6:15 EST Heart Rate Monitored 110 bpm HI Systolic Blood Pressure Non-Invasive 110 mmHg Diastolic Blood Pressure Non-Invasive 59 mmHg LOW Reason For Taking VItal Signs Routine 07/27/2024 6:02 EST Heart Rate Monitored 105 bpm HI Systolic Blood Pressure Non-Invasive 92 mmHg Diastolic Blood Pressure Non-Invasive 51 mmHg LOW Reason For Taking VItal Signs Routine 07/27/2024 5:47 EST Temperature Temporal Artery 36.4 DegC Heart Rate Monitored 103 bpm HI Systolic Blood Pressure Non-Invasive 97 mmHg Diastolic Blood Pressure Non-Invasive 65 mmHg Reason For Taking VItal Signs Routine 07/27/2024 5:30 EST Heart Rate Monitored 103 bpm HI Systolic Blood Pressure Non-Invasive 102 mmHg Diastolic Blood Pressure Non-Invasive 60 mmHg Reason For Taking VItal Signs Routine 07/27/2024 5:15 EST Heart Rate Monitored 105 bpm HI Systolic Blood Pressure Non-Invasive 97 mmHg Diastolic Blood Pressure Non-Invasive 60 mmHg Reason For Taking VItal Signs Routine 07/27/2024 5:02 EST Heart Rate Monitored 103 bpm HI Systolic Blood Pressure Non-Invasive 96 mmHg Diastolic Blood Pressure Non-Invasive 61 mmHg Reason For Taking VItal Signs Routine 07/27/2024 4:45 EST Temperature Temporal Artery 36.8 DegC Heart Rate Monitored 89 bpm Systolic Blood Pressure Non-Invasive 87 mmHg LOW Diastolic Blood Pressure Non-Invasive 30 mmHg Reason For Taking VItal Signs Routine 07/27/2024 4:34 EST Heart Rate Monitored 98 bpm Systolic Blood Pressure Non-Invasive 89 mmHg LOW Diastolic Blood Pressure Non-Invasive 42 mmHg Reason For Taking VItal Signs Routine 07/27/2024 4:15 EST Heart Rate Monitored 98 bpm Systolic Blood Pressure Non-Invasive 85 mmHg LOW Diastolic Blood Pressure Non-Invasive 35 mmHg Reason For Taking VItal Signs Routine 07/27/2024 4:03 EST Temperature Temporal Artery 36.4 DegC Heart Rate Monitored 94 bpm Systolic Blood Pressure Non-Invasive 85 mmHg LOW Diastolic Blood Pressure Non-Invasive 31 mmHg Reason For Taking VItal Signs Routine 07/27/2024 3:45 EST Heart Rate Monitored 98 bpm Systolic Blood Pressure Non-Invasive 87 mmHg LOW Diastolic Blood Pressure Non-Invasive 31 mmHg Reason For Taking VItal Signs Routine 07/27/2024 3:30 EST Heart Rate Monitored 123 bpm HI Systolic Blood Pressure Non-Invasive 88 mmHg LOW Diastolic Blood Pressure Non-Invasive 47 mmHg Reason For Taking VItal Signs Routine 07/27/2024 3:15 EST Temperature Temporal Artery 36.4 DegC Heart Rate Monitored 110 bpm HI Systolic Blood Pressure Non-Invasive 95 mmHg Diastolic Blood Pressure Non-Invasive 40 mmHg Reason For Taking VItal Signs Routine 07/27/2024 3:06 EST Heart Rate Monitored 107 bpm HI Systolic Blood Pressure Non-Invasive 107 mmHg Diastolic Blood Pressure Non-Invasive 47 mmHg Reason For Taking VItal Signs Routine 07/27/2024 3:01 EST Heart Rate Monitored 115 bpm HI Systolic Blood Pressure Non-Invasive 115 mmHg Diastolic Blood Pressure Non-Invasive 54 mmHg LOW Reason For Taking VItal Signs Routine 07/27/2024 2:57 EST Heart Rate Monitored 127 bpm HI Systolic Blood Pressure Non-Invasive 102 mmHg Diastolic Blood Pressure Non-Invasive 54 mmHg LOW Reason For Taking VItal Signs Routine 07/27/2024 2:55 EST Heart Rate Monitored 103 bpm HI Systolic Blood Pressure Non-Invasive 118 mmHg Diastolic Blood Pressure Non-Invasive 43 mmHg Reason For Taking VItal Signs Routine 07/27/2024 2:51 EST Heart Rate Monitored 111 bpm HI Systolic Blood Pressure Non-Invasive 94 mmHg Diastolic Blood Pressure Non-Invasive 67 mmHg Reason For Taking VItal Signs Routine 07/27/2024 2:50 EST Heart Rate Monitored 111 bpm HI Systolic Blood Pressure Non-Invasive 94 mmHg Diastolic Blood Pressure Non-Invasive 67 mmHg Reason For Taking VItal Signs Routine 07/27/2024 2:46 EST Heart Rate Monitored 108 bpm HI Systolic Blood Pressure Non-Invasive 139 mmHg Diastolic Blood Pressure Non-Invasive 71 mmHg Reason For Taking VItal Signs Routine 07/27/2024 2:44 EST Heart Rate Monitored 101 bpm HI Systolic Blood Pressure Non-Invasive 131 mmHg Diastolic Blood Pressure Non-Invasive 76 mmHg Reason For Taking VItal Signs Routine 07/27/2024 2:34 EST Heart Rate Monitored 96 bpm Systolic Blood Pressure Non-Invasive 147 mmHg HI Diastolic Blood Pressure Non-Invasive 76 mmHg Reason For Taking VItal Signs Routine 07/27/2024 1:07 EST Temperature Temporal Artery 36.3 DegC Heart Rate Monitored 86 bpm Systolic Blood Pressure Non-Invasive 142 mmHg HI Diastolic Blood Pressure Non-Invasive 71 mmHg Reason For Taking VItal Signs Routine 07/27/2024 0:00 EST Temperature Temporal Artery 36.3 DegC Heart Rate Monitored 102 bpm HI Systolic Blood Pressure Non-Invasive 144 mmHg HI Diastolic Blood Pressure Non-Invasive 82 mmHg Reason For Taking VItal Signs Routine 07/26/2024 23:05 EST Heart Rate Monitored 96 bpm Systolic Blood Pressure Non-Invasive 133 mmHg Diastolic Blood Pressure Non-Invasive 72 mmHg Reason For Taking VItal Signs Routine 07/26/2024 22:15 EST Temperature Temporal Artery 36.6 DegC Heart Rate Monitored 94 bpm Systolic Blood Pressure Non-Invasive 134 mmHg Diastolic Blood Pressure Non-Invasive 81 mmHg Reason For Taking VItal Signs Routine 07/26/2024 21:10 EST Temperature Temporal Artery 36.4 DegC Heart Rate Monitored 99 bpm Systolic Blood Pressure Non-Invasive 137 mmHg Diastolic Blood Pressure Non-Invasive 74 mmHg Reason For Taking VItal Signs Routine 07/26/2024 20:03 EST Temperature Temporal Artery 36.5 DegC Heart Rate Monitored 86 bpm Systolic Blood Pressure Non-Invasive 135 mmHg Diastolic Blood Pressure Non-Invasive 76 mmHg Reason For Taking VItal Signs Routine 07/26/2024 18:30 EST Temperature Temporal Artery 36.2 DegC Heart Rate Monitored 93 bpm Respiratory Rate 18 br/min Systolic Blood Pressure Non-Invasive 128 mmHg Diastolic Blood Pressure Non-Invasive 76 mmHg Reason For Taking VItal Signs Routine 07/26/2024 17:30 EST Temperature Oral 36.4 DegC Heart Rate Monitored 104 bpm HI Respiratory Rate 18 br/min Systolic Blood Pressure Non-Invasive 132 mmHg Diastolic Blood Pressure Non-Invasive 69 mmHg Reason For Taking VItal Signs Routine 07/26/2024 16:30 EST Temperature Temporal Artery 36.3 DegC Heart Rate Monitored 107 bpm HI Respiratory Rate 18 br/min Systolic Blood Pressure Non-Invasive 140 mmHg Diastolic Blood Pressure Non-Invasive 70 mmHg Reason For Taking VItal Signs Routine 07/26/2024 15:30 EST Temperature Temporal Artery 36.3 DegC Heart Rate Monitored 98 bpm Respiratory Rate 18 br/min Systolic Blood Pressure Non-Invasive 141 mmHg HI Diastolic Blood Pressure Non-Invasive 75 mmHg Blood Pressure Method Automatic Blood Pressure Location Right arm Blood Pressure Cuff Size Large Reason For Taking VItal Signs Routine 07/26/2024 14:30 EST Temperature Oral 36.7 DegC Heart Rate Monitored 103 bpm HI Respiratory Rate 18 br/min Systolic Blood Pressure Non-Invasive 139 mmHg Diastolic Blood Pressure Non-Invasive 76 mmHg Reason For Taking VItal Signs Routine 07/26/2024 13:30 EST Temperature Temporal Artery 36.3 DegC Heart Rate Monitored 89 bpm Respiratory Rate 18 br/min Systolic Blood Pressure Non-Invasive 145 mmHg HI Diastolic Blood Pressure Non-Invasive 72 mmHg Reason For Taking VItal Signs Routine 07/26/2024 12:30 EST Temperature Temporal Artery 36.0 DegC Temperature Oral In Error DegC (In Error) Heart Rate Monitored 120 bpm HI Respiratory Rate 18 br/min Systolic Blood Pressure Non-Invasive 130 mmHg Diastolic Blood Pressure Non-Invasive 78 mmHg Reason For Taking VItal Signs Routine 07/26/2024 11:30 EST Temperature Oral 36.4 DegC Heart Rate Monitored 107 bpm HI Respiratory Rate 18 br/min Systolic Blood Pressure Non-Invasive 130 mmHg Diastolic Blood Pressure Non-Invasive 74 mmHg Reason For Taking VItal Signs Routine 07/26/2024 10:30 EST Temperature Oral 36.5 DegC Heart Rate Monitored 92 bpm Respiratory Rate 18 br/min Systolic Blood Pressure Non-Invasive 142 mmHg HI Diastolic Blood Pressure Non-Invasive 83 mmHg Reason For Taking VItal Signs Routine 07/26/2024 9:30 EST Temperature Oral 36.9 DegC Heart Rate Monitored 93 bpm Systolic Blood Pressure Non-Invasive 132 mmHg Diastolic Blood Pressure Non-Invasive 67 mmHg Blood Pressure Method Automatic Blood Pressure Location Right arm Blood Pressure Cuff Size Large Reason For Taking VItal Signs Routine 07/26/2024 8:30 EST Temperature Oral 36.5 DegC Heart Rate Monitored 113 bpm HI Respiratory Rate 18 br/min Systolic Blood Pressure Non-Invasive 144 mmHg HI Diastolic Blood Pressure Non-Invasive 72 mmHg Blood Pressure Method Automatic Blood Pressure Location Right arm Blood Pressure Cuff Size Large Reason For Taking VItal Signs Routine 07/26/2024 7:45 EST Temperature Oral 36.4 DegC Heart Rate Monitored 89 bpm Respiratory Rate 18 br/min Systolic Blood Pressure Non-Invasive 141 mmHg HI Diastolic Blood Pressure Non-Invasive 68 mmHg Blood Pressure Method Automatic Blood Pressure Location Right arm Blood Pressure Cuff Size Large Reason For Taking VItal Signs Routine 07/26/2024 6:30 EST Temperature Oral 36.8 DegC 07/26/2024 5:15 EST Temperature Oral 36.4 DegC 07/26/2024 3:39 EST Temperature Temporal Artery 36 DegC Heart Rate Monitored 87 bpm Respiratory Rate 18 br/min Systolic Blood Pressure Non-Invasive 143 mmHg HI Diastolic Blood Pressure Non-Invasive 72 mmHg Vital Signs (last 24 hrs) Last Charted Temp [id number] DegC (JUL 27 10:15) Heart Rate MonitoredH 101 bpm (JUL 27 10:15) [id number] mmHg (JUL 27 10:15) DBPL 54 mmHg (JUL 27 10:15) Measurements from flowsheet : Measurements 07/26/2024 3:48 EST Height 163.5 cm Admission Weight 119 kg [place] Body Weight 55.55 kg BSA Admission 2.2 Body Mass Index 44.52 kg/m2 Pain assessment: Pain Assessment 07/27/2024 10:15 EST Primary Pain Intensity 0 Pain Associated Symptoms None Pain Scale Type 0-10 Pain scale 07/27/2024 10:00 EST Primary Pain Intensity 0 Pain Associated Symptoms None Pain Scale Type 0-10 Pain scale 07/27/2024 9:45 EST Primary Pain Intensity 0 Pain Associated Symptoms None Pain Scale Type 0-10 Pain scale 07/27/2024 9:00 EST Primary Pain Intensity 0 Pain Associated Symptoms None Pain Scale Type 0-10 Pain scale 07/27/2024 8:30 EST Primary Pain Intensity 0 Pain Associated Symptoms None Pain Scale Type 0-10 Pain scale 07/27/2024 8:00 EST Primary Pain Intensity 0 Pain Associated Symptoms None Pain Scale Type 0-10 Pain scale 07/27/2024 7:45 EST Primary Pain Intensity 0 Pain Associated Symptoms None Pain Scale Type 0-10 Pain scale 07/27/2024 7:30 EST Primary Pain Intensity 0 Pain Associated Symptoms None Pain Scale Type 0-10 Pain scale 07/27/2024 7:15 EST Primary Pain Intensity 0 Pain Associated Symptoms None Pain Scale Type 0-10 Pain scale 07/26/2024 18:30 EST Primary Pain Intensity 8 Pain Associated Symptoms None Pain Scale Type 0-10 Pain scale 07/26/2024 17:30 EST Primary Pain Intensity 8 Pain Associated Symptoms None Pain Scale Type 0-10 Pain scale 07/26/2024 16:30 EST Primary Pain Intensity 8 Pain Associated Symptoms None Pain Scale Type 0-10 Pain scale 07/26/2024 15:30 EST Primary Pain Location Pelvic Primary Pain Laterality Medial Primary Pain Intensity 8 Primary Pain Time Pattern intermittent Primary Pain Onset Gradual Primary Pain Duration Intermittent Primary Pain Quality Pressure Primary Pain Non-Pharma Intervention Relaxation techniques, Repositioning Primary Pain Aggravating Factors None Primary Pain Alleviating Factors Deep breathing, Repositioning Primary Pain Nonverbal Response Facial grimace Pain Associated Symptoms None Pain Scale Type 0-10 Pain scale 07/26/2024 14:30 EST Primary Pain Intensity 8 Pain Associated Symptoms None Pain Scale Type 0-10 Pain scale 07/26/2024 13:30 EST Primary Pain Intensity 8 Pain Associated Symptoms None Pain Scale Type 0-10 Pain scale 07/26/2024 12:30 EST Primary Pain Intensity 6 Pain Associated Symptoms None Pain Scale Type 0-10 Pain scale 07/26/2024 11:30 EST Primary Pain Intensity 6 Pain Associated Symptoms None Pain Scale Type 0-10 Pain scale 07/26/2024 10:30 EST Primary Pain Intensity 7 Pain Associated Symptoms None Pain Scale Type 0-10 Pain scale 07/26/2024 9:30 EST Primary Pain Intensity 7 Pain Associated Symptoms None Pain Scale Type 0-10 Pain scale 07/26/2024 8:30 EST Primary Pain Intensity 7 Pain Associated Symptoms None Pain Scale Type 0-10 Pain scale 07/26/2024 7:45 EST Primary Pain Location Pelvic Primary Pain Laterality Medial Primary Pain Intensity 7 Primary Pain Time Pattern intermittent Primary Pain Onset Gradual Primary Pain Duration Intermittent Primary Pain Quality Pressure Primary Pain Non-Pharma Intervention Relaxation techniques, Repositioning Primary Pain Aggravating Factors None Primary Pain Alleviating Factors Deep breathing, Repositioning Primary Pain Nonverbal Response Facial grimace Pain Associated Symptoms None Pain Scale Type 0-10 Pain scale 07/26/2024 3:39 EST Primary Pain Intensity 9 Pain Scale Type 0-10 Pain scale . General: Alert and oriented. Airway: Normal temporomandibular joint mobility. Mallampati classification: II (soft palate, fauces, uvula visible). Head: Normocephalic. Dentition Evaluation: Own teeth. Neck: Supple. Respiratory: Lungs are clear to auscultation. Cardiovascular: Normal rate. Heart Sounds: Normal. Gastrointestinal: Soft. Musculoskeletal Normal range of motion. Integumentary: Intact. Neurologic: Alert, Oriented. Review / Management Results review: Labs (Last four charted values) WBC H 17.7(JUL 26) Hgb L 10.9(JUL 26) Hct L 31.8(JUL 26) Plt 210(JUL 26) , Lab results 07/27/2024 10:27 EST Monitoring Annotations Repaired completed 07/27/2024 10:15 EST Temperature Temporal Artery 36.8 DegC Heart Rate Monitored 101 bpm HI Respiratory Rate 18 br/min Systolic Blood Pressure Non-Invasive 100 mmHg Diastolic Blood Pressure Non-Invasive 54 mmHg LOW Reason For Taking VItal Signs Routine Primary Pain Intensity 0 Pain Associated Symptoms None Pain Scale Type 0-10 Pain scale Narcotic Mode of Delivery PCEA pump Narcotic Assessment Type Routine check Narcotic Pump Activity Pump alarm on, Pump davis pad locked, Narcotic pump locked Narcotic Sedation Level Alert Narcotic Safety Assessment Button in reach, Connections secure, IV patency verified, Bed, tubing pump labeled Epidural, Maintain IV access until BASEBALL PITCHER D/C or 24hr after neuraxial, No other narcotics, No anticoags / blood thiners with epidural Heart Rhythm Regular Oxygen Therapy Room air Oxygen Saturation 98 % Bladder Distention Absent Fundal Height At umbilicus Fundal Position Midline Fundal Tone Firm Lochia Color Rubra Lochia Amount Moderate Wrist Left 07/26/2024 18 gauge Peripheral IV Activity: Assessed Peripheral IV Dressing Condition: Clean, Dry, Intact Peripheral IV Dressing Activity: Transparent dressing Peripheral IV Line Status/Patency: Continuous infusion Peripheral IV Site Condition: No complications Peripheral IV Equipment: Extension set, Stopcock, IV Pump, PRN Adaptor Rachel Motor (2) Moves 4 extremities voluntarily or on command Rachel Respirations (2) Spontaneous respiration without support, RR > 10 Rachel Blood Pressure (2) BP 20% above or below preanesthetic level Rachel Pulse (2) Pulse 20% above or below preanesthetic level Rachel Oxygen Saturation (2) 94% or more Rachel Level of Consciousness (2) Fully awake Rachel III Score 12 Standard Safety Safety level maintained, Precautions maintained 07/27/2024 10:10 EST misoprostol 1000 mcg mcg 07/27/2024 10:08 EST oxytocin Begin Bag 2 mL unit(s) LR Premix Diluent Begin Bag 500 mL mL 07/27/2024 10:00 EST Monitoring Annotations 2 degree & right labial tear repaired per Adonay Price CNM 07/27/2024 10:00 EST Temperature Temporal Artery 36.7 DegC Heart Rate Monitored 102 bpm HI Respiratory Rate 18 br/min Systolic Blood Pressure Non-Invasive 114 mmHg Diastolic Blood Pressure Non-Invasive 59 mmHg LOW Reason For Taking VItal Signs Routine Primary Pain Intensity 0 Pain Associated Symptoms None Pain Scale Type 0-10 Pain scale Narcotic Mode of Delivery PCEA pump Narcotic Assessment Type Routine check Narcotic Pump Activity Pump alarm on, Pump davis pad locked, Narcotic pump locked Narcotic Sedation Level Alert Narcotic Safety Assessment Button in reach, Connections secure, IV patency verified, Bed, tubing pump labeled Epidural, Maintain IV access until BASEBALL PITCHER D/C or 24hr after neuraxial, No other narcotics, No anticoags / blood thiners with epidural Heart Rhythm Regular Oxygen Therapy Room air Oxygen Saturation 98 % Bladder Distention Absent Fundal Height At umbilicus Fundal Position Midline Fundal Tone Firm Lochia Color Rubra Lochia Amount Moderate Rachel Motor (2) Moves 4 extremities voluntarily or on command Rachel Respirations (2) Spontaneous respiration without support, RR > 10 Rachel Blood Pressure (2) BP 20% above or below preanesthetic level Rachel Pulse (2) Pulse 20% above or below preanesthetic level Rachel Oxygen Saturation (2) 94% or more Rachel Level of Consciousness (2) Fully awake Rachel III Score 12 07/27/2024 9:49 EST methylergonovine 0.2 mg mg 07/27/2024 9:45 EST Monitoring Annotations Placenta delivered per Adonay Price [facility] 07/27/2024 9:45 EST Temperature Temporal Artery 36.7 DegC Heart Rate Monitored 103 bpm HI Respiratory Rate 18 br/min Systolic Blood Pressure Non-Invasive 105 mmHg Diastolic Blood Pressure Non-Invasive 72 mmHg Blood Pressure Method Automatic Blood Pressure Location Right arm Blood Pressure Cuff Size Large Reason For Taking VItal Signs Routine Primary Pain Intensity 0 Pain Associated Symptoms None Pain Scale Type 0-10 Pain scale Narcotic Mode of Delivery PCEA pump Narcotic Assessment Type Routine check Narcotic Pump Activity Pump alarm on, Pump davis pad locked, Narcotic pump locked Narcotic Sedation Level Alert Narcotic Safety Assessment Button in reach, Connections secure, IV patency verified, Bed, tubing pump labeled Epidural, Maintain IV access until BASEBALL PITCHER D/C or 24hr after neuraxial, No other narcotics, No anticoags / blood thiners with epidural Heart Rhythm Regular Oxygen Therapy Room air Oxygen Saturation 100 % Tolerating Oral Intake Yes Bladder Distention Absent Fundal Height At umbilicus Fundal Position Midline Fundal Tone Firm Lochia Color Rubra Lochia Amount Heavy Breasts Soft Nipples Intact Wrist Left 07/26/2024 18 gauge Peripheral IV Activity: Assessed Peripheral IV Dressing Condition: Clean, Dry, Intact Peripheral IV Dressing Activity: Transparent dressing Peripheral IV Line Status/Patency: Continuous infusion Peripheral IV Site Condition: No complications Peripheral IV Equipment: Extension set, Stopcock, IV Pump, PRN Adaptor Arrival Mode Bed Admission Date/Time - PACU 07/27/2024 9:45 Rachel Motor (2) Moves 4 extremities voluntarily or on command Rachel Respirations (2) Spontaneous respiration without support, RR > 10 Rachel Blood Pressure (2) BP 20% above or below preanesthetic level Rachel Pulse (2) Pulse 20% above or below preanesthetic level Rachel Oxygen Saturation (2) 94% or more Rachel Level of Consciousness (2) Fully awake Rachel III Score 12 Activity Status ADL Awake Activity Assistance Moderate assistance Maternal Activity Routine kangaroo care Hair Care Independent Oral Care Independent Surekha Care Maximum assistance Standard Safety Safety level maintained, Precautions maintained Demonstrates Correct Call Light Use Yes 07/27/2024 9:36 EST Monitoring Annotations viable male per J Sheila CNM 07/27/2024 9:30 EST Heart Rate Monitored 103 bpm HI Respiratory Rate 18 br/min Systolic Blood Pressure Non-Invasive 101 mmHg Diastolic Blood Pressure Non-Invasive 72 mmHg Reason For Taking VItal Signs Routine Narcotic Mode of Delivery PCEA pump Narcotic Assessment Type Routine check Narcotic Pump Activity Pump alarm on, Pump davis pad locked, Narcotic pump locked Narcotic Sedation Level Alert Narcotic Safety Assessment Button in reach, Connections secure, IV patency verified, Bed, tubing pump labeled Epidural, Maintain IV access until BASEBALL PITCHER D/C or 24hr after neuraxial, No other narcotics, No anticoags / blood thiners with epidural Heart Rhythm Regular Oxygen Therapy Room air Oxygen Saturation 100 % Uterine Contraction Monitoring Method External toco Uterine Contraction Frequency Q 4-5 min Uterine Contraction Duration 70 sec Uterine Contraction Intensity, Ext Palp Strong Uterine Resting Tone, External Soft Uterine Activity Regular contractions Patient Position, OB Pushing with contractions Baby A FHR Baseline: 140 bpm FHR Monitoring Method: External US transducer Neurological Symptoms Patient denies Strength All Extremities Moderate Tone All Extremities Normal 07/27/2024 9:22 EST Recommendation - Action Sepsis 07/27/2024 9:15 EST Heart Rate Monitored 102 bpm HI Respiratory Rate 18 br/min Systolic Blood Pressure Non-Invasive 73 mmHg LOW Diastolic Blood Pressure Non-Invasive 47 mmHg Reason For Taking VItal Signs Routine Heart Rhythm Regular Oxygen Therapy Room air Oxygen Saturation 100 % Uterine Contraction Monitoring Method External toco Uterine Contraction Frequency Q 3-4 min Uterine Contraction Duration 60-70 sec Uterine Contraction Intensity, Ext Palp Strong Uterine Resting Tone, External Soft Uterine Activity Regular contractions Patient Position, OB Pushing with contractions Baby A FHR Baseline: 120 bpm FHR Monitoring Method: External US transducer 07/27/2024 9:10 EST Temperature Temporal Artery 36.6 DegC Heart Rate Monitored 119 bpm HI Respiratory Rate 18 br/min Systolic Blood Pressure Non-Invasive 91 mmHg Diastolic Blood Pressure Non-Invasive 68 mmHg Reason For Taking VItal Signs Routine Heart Rhythm Regular Oxygen Therapy Room air Oxygen Saturation 100 % 07/27/2024 9:00 EST Heart Rate Monitored 119 bpm HI Respiratory Rate 18 br/min Systolic Blood Pressure Non-Invasive 86 mmHg LOW Diastolic Blood Pressure Non-Invasive 45 mmHg Reason For Taking VItal Signs Routine Primary Pain Intensity 0 Pain Associated Symptoms None Pain Scale Type 0-10 Pain scale Narcotic Mode of Delivery PCEA pump Narcotic Assessment Type Routine check Narcotic Pump Activity Pump alarm on, Pump davis pad locked, Narcotic pump locked Narcotic Sedation Level Alert Narcotic Safety Assessment Button in reach, Connections secure, IV patency verified, Bed, tubing pump labeled Epidural, Maintain IV access until BASEBALL PITCHER D/C or 24hr after neuraxial, No other narcotics, No anticoags / blood thiners with epidural Heart Rhythm Regular Oxygen Therapy Room air Oxygen Saturation 98 % Uterine Contraction Monitoring Method External toco Uterine Contraction Frequency Q 3-4 min Uterine Contraction Duration 90 sec Uterine Contraction Intensity, Ext Palp Strong Uterine Resting Tone, External Soft Uterine Activity Regular contractions Patient Position, OB Pushing with contractions, Left tilt Baby A FHR Baseline: 145 bpm FHR Baseline Variability: Moderate variability FHR Accelerations: Present FHR Deceleration: Present FHR Deceleration Description: Variable FHR Deceleration Intervention: Other: Repositioned FHR Monitoring Method: External US transducer Wrist Left 07/26/2024 18 gauge Peripheral IV Activity: Assessed Peripheral IV Dressing Condition: Clean, Dry, Intact Peripheral IV Dressing Activity: Transparent dressing Peripheral IV Line Status/Patency: Continuous infusion Peripheral IV Site Condition: No complications Peripheral IV Equipment: Extension set, Stopcock, IV Pump, PRN Adaptor Neurological Symptoms Patient denies Strength All Extremities Moderate Tone All Extremities Normal Activity Status ADL Awake Standard Safety Safety level maintained, Precautions maintained 07/27/2024 8:45 EST Temperature Temporal Artery 37.0 DegC Heart Rate Monitored 131 bpm HI Respiratory Rate 18 br/min Systolic Blood Pressure Non-Invasive 85 mmHg LOW Diastolic Blood Pressure Non-Invasive 38 mmHg Reason For Taking VItal Signs Routine Heart Rhythm Regular Oxygen Therapy Room air Oxygen Saturation 99 % Uterine Contraction Monitoring Method External toco Uterine Contraction Frequency Q 3-4 min Uterine Contraction Duration 80-90 sec Uterine Contraction Intensity, Ext Palp Strong Uterine Resting Tone, External Soft Uterine Activity Regular contractions Patient Position, OB Pushing with contractions Baby A FHR Baseline: 145 bpm FHR Baseline Variability: Moderate variability FHR Accelerations: Present FHR Monitoring Method: External US transducer 07/27/2024 8:36 EST Urethral Indwelling/Continuous 16 Fr 07/27/2024 Urinary Catheter Activity: Discontinued Urinary Catheter Site Condition: No complications Urinary Catheter Output: 50 mL Urinary Catheter Care Completed: Yes 07/27/2024 8:30 EST Heart Rate Monitored 111 bpm HI Respiratory Rate 16 br/min Systolic Blood Pressure Non-Invasive 106 mmHg Diastolic Blood Pressure Non-Invasive 66 mmHg Reason For Taking VItal Signs Routine Primary Pain Intensity 0 Pain Associated Symptoms None Pain Scale Type 0-10 Pain scale Narcotic Mode of Delivery PCEA pump Narcotic Assessment Type Routine check Narcotic Pump Activity Pump alarm on, Pump davis pad locked, Narcotic pump locked Narcotic Sedation Level Alert Narcotic Safety Assessment Button in reach, Connections secure, IV patency verified, Bed, tubing pump labeled Epidural, Maintain IV access until BASEBALL PITCHER D/C or 24hr after neuraxial, No other narcotics, No anticoags / blood thiners with epidural Heart Rhythm Regular Oxygen Therapy Room air Oxygen Saturation 99 % Uterine Contraction Monitoring Method External toco Uterine Contraction Frequency Q 4 min Uterine Contraction Duration 80-90 sec Uterine Contraction Intensity, Ext Palp Strong Uterine Resting Tone, External Soft Uterine Activity Regular contractions Patient Position, OB Pushing with contractions, Left tilt Baby A FHR Baseline: 125 bpm FHR Baseline Variability: Moderate variability FHR Accelerations: Present FHR Monitoring Method: External US transducer Neurological Symptoms Patient denies Strength All Extremities Moderate Tone All Extremities Normal Activity Status ADL Awake 07/27/2024 8:25 EST Monitoring Annotations Provider at bedside 07/27/2024 8:17 EST Recommendation - Action Sepsis 07/27/2024 8:15 EST Heart Rate Monitored 104 bpm HI Respiratory Rate 16 br/min Systolic Blood Pressure Non-Invasive 100 mmHg Diastolic Blood Pressure Non-Invasive 54 mmHg LOW Reason For Taking VItal Signs Routine Heart Rhythm Regular Oxygen Therapy Room air Oxygen Saturation 94 % Uterine Contraction Monitoring Method External toco Uterine Contraction Frequency Q 4 min Uterine Contraction Duration 90 sec Uterine Contraction Intensity, Ext Palp Moderate Uterine Resting Tone, External Soft Uterine Activity Regular contractions Patient Position, OB Pushing with contractions Baby A FHR Baseline: 145 bpm FHR Baseline Variability: Moderate variability FHR Accelerations: Present FHR Deceleration: Present FHR Deceleration Description: Variable FHR Deceleration Intervention: Other: Repositioned FHR Monitoring Method: External US transducer 07/27/2024 8:00 EST Temperature Temporal Artery 36.1 DegC Heart Rate Monitored 105 bpm HI Respiratory Rate 16 br/min Systolic Blood Pressure Non-Invasive 107 mmHg Diastolic Blood Pressure Non-Invasive 61 mmHg Reason For Taking VItal Signs Routine Primary Pain Intensity 0 Pain Associated Symptoms None Pain Scale Type 0-10 Pain scale Narcotic Mode of Delivery PCEA pump Narcotic Assessment Type Routine check Narcotic Pump Activity Pump alarm on, Pump davis pad locked, Narcotic pump locked Narcotic Sedation Level Alert Narcotic Safety Assessment Button in reach, Connections secure, IV patency verified, Bed, tubing pump labeled Epidural, Maintain IV access until BASEBALL PITCHER D/C or 24hr after neuraxial, No other narcotics, No anticoags / blood thiners with epidural Heart Rhythm Regular Oxygen Therapy Room air Oxygen Saturation 96 % Urethral Indwelling/Continuous 16 Fr 07/27/2024 Urinary Catheter Activity: Assessed Urinary Catheter Secured: Securement device on Urinary Catheter Drainage System: Dependent drainage bag Urinary Catheter Site Condition: No complications Urinary Catheter Output: 650 mL Urinary Catheter Care Completed: Yes Uterine Contraction Monitoring Method External toco Uterine Contraction Frequency Q 4 min Uterine Contraction Duration 50 sec Uterine Contraction Intensity, Ext Palp Moderate Uterine Resting Tone, External Soft Uterine Activity Regular contractions Patient Position, OB Right tilt, Semi-Anderson's Patient Position, OB Pushing with contractions Baby A FHR Baseline: 145 bpm FHR Baseline Variability: Moderate variability FHR Accelerations: Present FHR Deceleration: Present FHR Deceleration Description: Variable FHR Deceleration Intervention: Other: Repositioned FHR Monitoring Method: External US transducer Wrist Left 07/26/2024 18 gauge Peripheral IV Activity: Assessed Peripheral IV Dressing Condition: Clean, Dry, Intact Peripheral IV Dressing Activity: Transparent dressing Peripheral IV Line Status/Patency: Continuous infusion Peripheral IV Site Condition: No complications Peripheral IV Equipment: Extension set, Stopcock, IV Pump, PRN Adaptor Neurological Symptoms Patient denies Strength All Extremities Moderate (Modified) Tone All Extremities Normal Activity Status ADL Awake Standard Safety Safety level maintained, Precautions maintained 07/27/2024 7:50 EST Cervix Dilation 10 cm Vaginal Exam Performed By RAHUL PRICE Complete Cervical Dilation Date/Time 07/27/2024 7:50 Length of Labor, 1st Stage: 2,075 minute(s) Length of Labor, 1st Stage Hrs Ca.6 hour(s) D-EGA at Documented Date, Time 40W 6D 07/27/2024 7:45 EST Monitoring Annotations Provider at bedside 07/27/2024 7:45 EST Heart Rate Monitored 103 bpm HI Respiratory Rate 16 br/min Systolic Blood Pressure Non-Invasive 69 mmHg LOW Diastolic Blood Pressure Non-Invasive 33 mmHg Reason For Taking VItal Signs Routine Primary Pain Intensity 0 Pain Associated Symptoms None Pain Scale Type 0-10 Pain scale Narcotic Mode of Delivery PCEA pump Narcotic Assessment Type Routine check Narcotic Pump Activity Pump alarm on, Pump davis pad locked, Narcotic pump locked Narcotic Sedation Level Alert Narcotic Safety Assessment Button in reach, Connections secure, IV patency verified, Bed, tubing pump labeled Epidural, Maintain IV access until BASEBALL PITCHER D/C or 24hr after neuraxial, No other narcotics, No anticoags / blood thiners with epidural Heart Rhythm Regular Oxygen Therapy Room air Oxygen Saturation 99 % Uterine Contraction Monitoring Method External toco Uterine Contraction Frequency Q 3-5 min Uterine Contraction Duration 30-50 sec Uterine Contraction Intensity, Ext Palp Moderate Uterine Resting Tone, External Soft Uterine Activity Regular contractions Patient Position, OB Left lateral, Peanut ball Baby A FHR Baseline: 155 bpm FHR Baseline Variability: Moderate variability FHR Accelerations: Present FHR Deceleration: Present FHR Deceleration Description: Variable FHR Deceleration Intervention: IV Bolus, Other: Repositioned FHR Monitoring Method: External US transducer 07/27/2024 7:43 EST O-Remains Free From Injury Progressing towards goal Edu-Pain Management Verbalizes/Nonverbally indicates understanding Ed- Monitoring Verbalizes/Nonverbally indicates understanding Ed-Safety Verbalizes/Nonverbally indicates understanding Ed-Discharge instructions Needs further teaching Ed-Complications of Labor/Delivery Verbalizes/Nonverbally indicates understanding 07/27/2024 7:30 EST Heart Rate Monitored 94 bpm Respiratory Rate 16 br/min Systolic Blood Pressure Non-Invasive 70 mmHg LOW Diastolic Blood Pressure Non-Invasive 36 mmHg Reason For Taking VItal Signs Routine Primary Pain Intensity 0 Pain Associated Symptoms None Pain Scale Type 0-10 Pain scale Narcotic Mode of Delivery PCEA pump Narcotic Assessment Type Routine check Narcotic Pump Activity Pump alarm on, Pump davis pad locked, Narcotic pump locked Narcotic Sedation Level Alert Narcotic Safety Assessment Button in reach, Connections secure, IV patency v (more content not included)... [facility] 07-27-2024 Note Labor Details Baby A FHR Baseline:135 bpm FHR Baseline Variability:Moderate variability Membranes Membrane Status:S.R.O.M. ROM Date, Time:07/25/2024 21:15 EST Amniotic Fluid Color/Descrip:Clear FHR Accelerations:Present Uterine Uterine Contraction FrequencyQ 4-5 min Uterine Contraction Monitoring MethodExternal toco Cervical Physical Exam Vitals & Measurements T: 36.7 C (Oral) TMIN: 36.0 C (Temporal Artery) TMAX: 36.9 C (Oral) HR: 103 (Monitored) RR: 18 BP: 139/76 SpO2: 98% HT: 163.5 cm WT: 119 kg BMI: 44.52 Called by RN for status update. Pt tolerating labor well breathing with contractions and ambulating in room and alternating between bed and birthing ball with supportive at BS VE at 1030 by RN unchanged [place] at present 2-4/mod/soft rest Cat one tracing Assessment/Plan 40 weeks gestation of continue close obs of efm Continue close obs maternal VS/temp cont exp management pain intervention when/if desires Reveal in 4 hours or prn Orders: carboprost(Hemabate), 250 mcg= 1 mL, Intramuscular, Once, PRN citric acid-sodium citrate(Bicitra), 30 mL, Oral, AsDirected, PRN famotidine(Pepcid), 20 mg= 2 mL, IV Push, BID, PRN Lactated Ringers Infusion(LR 500 mL Bolus), 500 mL, IV Bolus, AsDirected, PRN Lactated Ringers Infusion 1,000 mL(LR 1,000 mL), 1000 mL, Intravenous lidocaine(Xylocaine HCl 1% injectable solution), 100 mg= 10 mL, Perineum, AsDirected, PRN methylergonovine(Methergine), 0.2 mg= 1 mL, Intramuscular, Once, PRN miSOPROStol(Cytotec), 1000 mcg= 5 tab(s), Rectal, Once, PRN ondansetron(Zofran), 4 mg= 2 mL, IV Push, q4h, PRN oxytocin(Pitocin), 20 unit(s)= 2 mL, Intramuscular, Once, PRN oxytocin 20 unit(s) + LR Premix Diluent 500 mL(Oxytocin for IV (mL/hr) 20 unit(s) + LR Premix Diluent 500 mL), Start: 07/26/24 3:46:00 EST, Rate: 500 mL/hr, 07/26/24 3:46:00 EST terbutaline(Brethine), 0.25 mg= 0.25 mL, Subcutaneous, AsDirected, PRN tranexamic acid(tranexamic acid 1 g / 100 mL 0.7% NaCl PMX), 1 gram(s)= 100 mL, IV Piggyback, AsDirected, PRN Admit to Inpatient, 07/26/24 4:07:00 EST, Level of Care: Obstetrics, Reason for Admission: See History & Physical, Expected Length of Stay: No More Than 96 Hours, Constant Order Ambulate, 07/26/24 3:46:00 EST, PRN Order, as tolerated Code Status, 07/26/24 4:07:00 EST, Full Code, Constant Order Consult to Anesthesia, 07/26/24 3:46:00 EST, not specified, As needed for epidural insertion or for delivery Diet Order, 07/26/24 3:46:00 EST, Start Meal: Next meal, Clear Liquid Diet, Constant Order Epidural Anesthesia, 07/26/24 3:46:00 EST, PRN order, With patient consent, when patient requests Monitoring, 07/26/24 3:46:00 EST, Continuous Intake and Output, 07/26/24 3:46:00 EST, q8hr, while IV running IV Catheter Insertion/Care, 07/26/24 3:46:00 EST, IV Care: q4h, Rotate when clinically indicated & q7day drsg change Oxygen Administration (LDRP)(Oxygen Administration (OB)), 07/26/24 3:46:00 EST, Non-Rebreather Mask, 10 LPM, PRN Order, Adjust flow rate to maintain proper inflation Prn Adapter, 07/26/24 3:46:00 EST, Once Rapid Plasma Reagin Test(RPR), 07/26/24 3:46:00 EST, URGENT (collect within 2 hrs), Blood, Once, Nurse Collect, Stop date 07/26/24 3:47:00 EST Straight Cath, 07/26/24 3:46:00 EST, PRN Order Urinary Catheter Insertion/Care, 07/26/24 3:46:00 EST, Do Not Remove Urinary Catheter, Undergoing/Undergone Pelvic procedure, to gravity drainage, Cath Care: Daily, Following epidural insertion, PRN Order Vital Signs, 07/26/24 3:46:00 EST, 07/26/24 3:46:00 EST, On admission, then BP, P, R q 1 hour while in labor. Temp q 2 hours until rupture of membranes then q 1 hour Vital Signs Call Parameters, 07/26/24 3:46:00 EST, Temp Range: > 38C, Pulse Range: > 120 BPM, Resp Rate Range: <12 or >24, BP Range SBP <100 or >160; DBP <50 or >105, 02 Sat Range: < 95%, Constant Order, Call HO Medications Inpatient Bicitra, 30 mL, Oral, AsDirected, PRN Brethine, 0.25 mg= 0.25 mL, Subcutaneous, AsDirected, PRN Cytotec, 1000 mcg= 5 tab(s), Rectal, Once, PRN Hemabate, 250 mcg= 1 mL, Intramuscular, Once, PRN LR 1,000 mL, 1000 mL, Intravenous LR 500 mL Bolus, 500 mL, IV Bolus, AsDirected, PRN Methergine, 0.2 mg= 1 mL, Intramuscular, Once, PRN Oxytocin for IV (mL/hr) 20 unit(s) + LR Premix Diluent 500 mL Pepcid, 20 mg= 2 mL, IV Push, BID, PRN Pitocin, 20 unit(s)= 2 mL, Intramuscular, Once, PRN tranexamic acid 1 g / 100 mL 0.7% NaCl PMX, 1 gram(s)= 100 mL, IV Piggyback, AsDirected, PRN Xylocaine HCl 1% injectable solution, 100 mg= 10 mL, Perineum, AsDirected, PRN Zofran, 4 mg= 2 mL, IV Push, q4h, PRN Home calcium carbonate-magnesium carbonate 200 mg-400 mg oral tablet, 1 tab(s), Oral, TID ferrous sulfate 325 mg (65 mg elemental iron) oral tablet, 325 mg= 1 tab(s), Oral, BID AD oral tablet, 1 tab(s), Oral, Daily Vitamin D with Minerals oral tablet, 1 tab(s), Oral, qDay Digitally Signed by RAHUL PRICE on 07/26/2024 03:31 PM [facility] 07-27-2024 Note Labor Details Baby A FHR Baseline:135 bpm FHR Baseline Variability:Moderate variability Membranes Membrane Status:S.R.O.M. ROM Date, Time:07/25/2024 21:15 EST Amniotic Fluid Color/Descrip:Clear FHR Accelerations:Present Uterine Uterine Contraction FrequencyQ 4-5 min Uterine Contraction Monitoring MethodExternal toco Cervical Physical Exam Vitals & Measurements T: 36.7 C (Oral) TMIN: 36.0 C (Temporal Artery) TMAX: 36.9 C (Oral) HR: 103 (Monitored) RR: 18 BP: 139/76 SpO2: 98% HT: 163.5 cm WT: 119 kg BMI: 44.52 Called by RN for status update. Pt tolerating labor well breathing with contractions and ambulating in room and alternating between bed and birthing ball with supportive at BS VE at 1030 by RN unchanged [place] at present 2-4/mod/soft rest Cat one tracing Assessment/Plan 40 weeks gestation of continue close obs of efm Continue close obs maternal VS/temp cont exp management pain intervention when/if desires Reveal in 4 hours or prn Orders: carboprost(Hemabate), 250 mcg= 1 mL, Intramuscular, Once, PRN citric acid-sodium citrate(Bicitra), 30 mL, Oral, AsDirected, PRN famotidine(Pepcid), 20 mg= 2 mL, IV Push, BID, PRN Lactated Ringers Infusion(LR 500 mL Bolus), 500 mL, IV Bolus, AsDirected, PRN Lactated Ringers Infusion 1,000 mL(LR 1,000 mL), 1000 mL, Intravenous lidocaine(Xylocaine HCl 1% injectable solution), 100 mg= 10 mL, Perineum, AsDirected, PRN methylergonovine(Methergine), 0.2 mg= 1 mL, Intramuscular, Once, PRN miSOPROStol(Cytotec), 1000 mcg= 5 tab(s), Rectal, Once, PRN ondansetron(Zofran), 4 mg= 2 mL, IV Push, q4h, PRN oxytocin(Pitocin), 20 unit(s)= 2 mL, Intramuscular, Once, PRN oxytocin 20 unit(s) + LR Premix Diluent 500 mL(Oxytocin for IV (mL/hr) 20 unit(s) + LR Premix Diluent 500 mL), Start: 07/26/24 3:46:00 EST, Rate: 500 mL/hr, 07/26/24 3:46:00 EST terbutaline(Brethine), 0.25 mg= 0.25 mL, Subcutaneous, AsDirected, PRN tranexamic acid(tranexamic acid 1 g / 100 mL 0.7% NaCl PMX), 1 gram(s)= 100 mL, IV Piggyback, AsDirected, PRN Admit to Inpatient, 07/26/24 4:07:00 EST, Level of Care: Obstetrics, Reason for Admission: See History & Physical, Expected Length of Stay: No More Than 96 Hours, Constant Order Ambulate, 07/26/24 3:46:00 EST, PRN Order, as tolerated Code Status, 07/26/24 4:07:00 EST, Full Code, Constant Order Consult to Anesthesia, 07/26/24 3:46:00 EST, not specified, As needed for epidural insertion or for delivery Diet Order, 07/26/24 3:46:00 EST, Start Meal: Next meal, Clear Liquid Diet, Constant Order Epidural Anesthesia, 07/26/24 3:46:00 EST, PRN order, With patient consent, when patient requests Monitoring, 07/26/24 3:46:00 EST, Continuous Intake and Output, 07/26/24 3:46:00 EST, q8hr, while IV running IV Catheter Insertion/Care, 07/26/24 3:46:00 EST, IV Care: q4h, Rotate when clinically indicated & q7day drsg change Oxygen Administration (LDRP)(Oxygen Administration (OB)), 07/26/24 3:46:00 EST, Non-Rebreather Mask, 10 LPM, PRN Order, Adjust flow rate to maintain proper inflation Prn Adapter, 07/26/24 3:46:00 EST, Once Rapid Plasma Reagin Test(RPR), 07/26/24 3:46:00 EST, URGENT (collect within 2 hrs), Blood, Once, Nurse Collect, Stop date 07/26/24 3:47:00 EST Straight Cath, 07/26/24 3:46:00 EST, PRN Order Urinary Catheter Insertion/Care, 07/26/24 3:46:00 EST, Do Not Remove Urinary Catheter, Undergoing/Undergone Pelvic procedure, to gravity drainage, Cath Care: Daily, Following epidural insertion, PRN Order Vital Signs, 07/26/24 3:46:00 EST, 07/26/24 3:46:00 EST, On admission, then BP, P, R q 1 hour while in labor. Temp q 2 hours until rupture of membranes then q 1 hour Vital Signs Call Parameters, 07/26/24 3:46:00 EST, Temp Range: > 38C, Pulse Range: > 120 BPM, Resp Rate Range: <12 or >24, BP Range SBP <100 or >160; DBP <50 or >105, 02 Sat Range: < 95%, Constant Order, Call HO Medications Inpatient Bicitra, 30 mL, Oral, AsDirected, PRN Brethine, 0.25 mg= 0.25 mL, Subcutaneous, AsDirected, PRN Cytotec, 1000 mcg= 5 tab(s), Rectal, Once, PRN Hemabate, 250 mcg= 1 mL, Intramuscular, Once, PRN LR 1,000 mL, 1000 mL, Intravenous LR 500 mL Bolus, 500 mL, IV Bolus, AsDirected, PRN Methergine, 0.2 mg= 1 mL, Intramuscular, Once, PRN Oxytocin for IV (mL/hr) 20 unit(s) + LR Premix Diluent 500 mL Pepcid, 20 mg= 2 mL, IV Push, BID, PRN Pitocin, 20 unit(s)= 2 mL, Intramuscular, Once, PRN tranexamic acid 1 g / 100 mL 0.7% NaCl PMX, 1 gram(s)= 100 mL, IV Piggyback, AsDirected, PRN Xylocaine HCl 1% injectable solution, 100 mg= 10 mL, Perineum, AsDirected, PRN Zofran, 4 mg= 2 mL, IV Push, q4h, PRN Home calcium carbonate-magnesium carbonate 200 mg-400 mg oral tablet, 1 tab(s), Oral, TID ferrous sulfate 325 mg (65 mg elemental iron) oral tablet, 325 mg= 1 tab(s), Oral, BID AD oral tablet, 1 tab(s), Oral, Daily Vitamin D with Minerals oral tablet, 1 tab(s), Oral, qDay Digitally Signed by RAHUL PRICE on 07/26/2024 03:31 PM [facility] 07-27-2024 Anesthesiology Consult note CHRIS JOSÉ: VERIFY, PERFORM, SIGN Event Display: Anesthesiology Consultation Authored Date: [id number] Patient: JOANNA FAIR Age: 34 years Sex: Female : 1990 Associated Diagnoses: None Author: CHRIS JOSÉ Preoperative Information Time of last food or liquid consumption: 07/27/2024 02:00:00 Anesthesia history Patient's history: negative. Family's history: negative. Review of Systems Ear/Nose/Mouth/Throat: Negative. Respiratory: Negative. Cardiovascular: Negative. Gastrointestinal: obese. Genitourinary: Negative. Endocrine: Negative. Musculoskeletal: Negative. Integumentary: Negative. Neurologic: Negative. Health Status Allergies: Allergic Reactions (Selected) NKA, Allergies (1) ActiveSeverityReaction NKANone Documented Current medications: (Selected) Inpatient Medications Ordered Ambien: 5 mg, 1 tab(s), Oral, qHS, PRN: Sleep [place] Hemorrhoidal 20% rectal ointment: 1 tawanna, Perineum, AsDirected, PRN: to perineal sutures Analpram-HC 2.5%-1% rectal cream: 1 tawanna, Perineum, q1h, PRN: hemorrhoidal or perineal discomfort Anusol-HC 25 mg rectal suppository: 25 mg, 1 supp, Rectal, BID, PRN: hemorrhoidal discomfort Bicitra: 30 mL, Oral, AsDirected, PRN: Gastric Upset Boostrix (Tdap): 0.5 mL, Intramuscular, Vaccine Colace: 100 mg, 1 cap(s), Oral, BID, PRN: Constipation Cytotec: 1,000 mcg, 5 tab(s), Rectal, Once, PRN: Other (see order comments) Dermoplast topical spray: 1 spray(s), Perineum, q1h, PRN: Other (see order comments) Dulcolax Laxative: 10 mg, 1 supp, Rectal, qDay, PRN: Constipation [place] Enema: 133 mL, Rectal, qDay, PRN: Constipation Hemabate: 250 mcg, 1 mL, Intramuscular, Once, PRN: Other (see order comments) Lansinoh for Breast Feeding Mothers: 7 g, 1 EA, Topical, AsDirected, PRN: Other (see order comments) Methergine: 0.2 mg, 1 mL, Intramuscular, Once, PRN: Other (see order comments) Motrin: 600 mg, 1 tab(s), Oral, q6h, PRN: uterine cramping Mylicon: 80 mg, 1 tab(s), Chewed, TID, PRN: Dyspepsia [place] 325- 5 mg oral tablet: 1 tab(s), Oral, q6h, PRN: Pain, scale 4-6 [place] 325- 5 mg oral tablet: 2 tab(s), Oral, q6h, PRN: Pain, scale 7-10 Oxytocin for IV (mL/hr) 20 unit(s) + LR Premix Diluent 500 mL: 500 mL/hr, Intravenous Oxytocin for IV (mL/hr) 20 unit(s) + LR Premix Diluent 500 mL: 62.5 mL/hr, Intravenous Pepcid: 20 mg, 2 mL, IV Push, BID, PRN: Heartburn Pitocin: 20 unit(s), 2 mL, Intramuscular, Once, PRN: Other (see order comments) Rhophylac: 300 mcg, 2 mL, Intramuscular, AsDirected, PRN: if Rh factor neg per policy Tylenol: 650 mg, 2 tab(s), Oral, q6h, PRN: Pain, scale 1-3 Xylocaine HCl 1% injectable solution: 20 mg, 2 mL, Perineum, AsDirected, PRN: to perineal sutures glycerin-witch gabe 50% topical pad: 1 tawanna, Topical, AsDirected, PRN: Hemorrhoids Prescriptions Prescribed Colace 100 mg oral capsule: 100 mg, 1 cap(s), Oral, BID, PRN: Constipation, 180 cap(s), 0 Refill(s) IBU 600 mg oral tablet: 600 mg, 1 tab(s), Oral, QID, 40 tab(s), 0 Refill(s) Documented Medications Documented AD oral tablet: 1 tab(s), Oral, Daily, 30 tab(s), 0 Refill(s) Vitamin D with Minerals oral tablet: 1 tab(s), Oral, qDay, 30 tab(s), 0 Refill(s) calcium carbonate-magnesium carbonate 200 mg-400 mg oral tablet: 1 tab(s), Oral, TID, with meals, 150 tab(s), 0 Refill(s) ferrous sulfate 325 mg (65 mg elemental iron) oral tablet: 325 mg, 1 tab(s), Oral, BID, 100 tab(s), 0 Refill(s), Medications (26) Active Scheduled: (1) tetanus/diphth/pertuss (Tdap) adult/adol 5 units-2.5 units-18.5 mcg/0.5 mL (Boostrix) 0.5 mL, Intramuscular, Vaccine Continuous: (2) oxytocin 20 unit(s) + LR Premix Diluent 500 mL 500 mL, Intravenous, 500 mL/hr oxytocin 20 unit(s) + LR Premix Diluent 500 mL 500 mL, Intravenous, 62.5 mL/hr PRN: (23) acetaminophen 325 mg Tablet 650 mg 2 tab(s), Oral, q6h acetaminophen-HYDROcodone 325-5 mg tablet 1 tab(s), Oral, q6h acetaminophen-HYDROcodone 325-5 mg tablet 2 tab(s), Oral, q6h benzocaine topical 20% Ointment 1 tawanna, Perineum, AsDirected benzocaine topical 20% [place] 1 spray(s), Perineum, q1h bisacodyl 10 mg Suppository 10 mg 1 supp, Rectal, qDay carboprost 250 mcg/ml 1mL ampule 250 mcg 1 mL, Intramuscular, Once citric acid-sodium citrate 334 mg-500 mg/5 mL (30 mL) Shayla UD 30 mL, Oral, AsDirected docusate sodium 100 mg Capsule 100 mg 1 cap(s), Oral, BID famotidine 20 mg/2 mL vial 20 mg 2 mL, IV Push, BID glycerin-witch gabe topical 10%-50% Pad 1 tawanna, Topical, AsDirected hydrocortisone topical 25 mg rectal supp 25 mg 1 supp, Rectal, BID hydrocortisone-pramoxine topical 2.5%-1% Cream 4 gram(s) 1 tawanna, Perineum, q1h ibuprofen 600 mg tablet 600 mg 1 tab(s), Oral, q6h lanolin (purified) 7 g 1 EA, Topical, AsDirected lidocaine 1% (MPF) 2 mL vial pf 20 mg 2 mL, Perineum, AsDirected methylergonovine 0.2 mg/mL (1 mL) ampule 0.2 mg 1 mL, Intramuscular, Once misoprostol 200 mcg tablet 1,000 mcg 5 tab(s), Rectal, Once oxytocin 10 units/mL 1 mL vial 20 unit(s) 2 mL, Intramuscular, Once RHo (D) immune globulin 300 mcg/2 mL Soln 300 mcg 2 mL, Intramuscular, AsDirected simethicone 80 mg Chewable 80 mg 1 tab(s), Chewed, TID sodium biphosphate-sodium phosphate 19 gm-7 gm Enema 133 mL, Rectal, qDay zolpidem 5 mg tablet 5 mg 1 tab(s), Oral, qHS Problem list: Medical / SNOMED CT [id number] / Confirmed / SNOMED CT [id number] / Confirmed, Active Problems (2) Histories Past Medical History: No active or resolved past medical history items have been selected or recorded. Family History: No family history items have been selected or recorded. Procedure history: Uterine polyp ([id number]). Comments: 07/26/2024 4:05 Rajani Robert RN with surgical removal 2011 Social History: Social & Psychosocial Habits Alcohol 07/26/2024 Use: Never Substance Abuse 07/26/2024 Use: Never Tobacco 07/26/2024 Tobacco Use: Never (less than 100 in l Physical Examination Vital Signs 07/27/2024 10:15 EST Temperature Temporal Artery 36.8 DegC Heart Rate Monitored 101 bpm HI Respiratory Rate 18 br/min Systolic Blood Pressure Non-Invasive 100 mmHg Diastolic Blood Pressure Non-Invasive 54 mmHg LOW Reason For Taking VItal Signs Routine 07/27/2024 10:00 EST Temperature Temporal Artery 36.7 DegC Heart Rate Monitored 102 bpm HI Respiratory Rate 18 br/min Systolic Blood Pressure Non-Invasive 114 mmHg Diastolic Blood Pressure Non-Invasive 59 mmHg LOW Reason For Taking VItal Signs Routine 07/27/2024 9:45 EST Temperature Temporal Artery 36.7 DegC Heart Rate Monitored 103 bpm HI Respiratory Rate 18 br/min Systolic Blood Pressure Non-Invasive 105 mmHg Diastolic Blood Pressure Non-Invasive 72 mmHg Blood Pressure Method Automatic Blood Pressure Location Right arm Blood Pressure Cuff Size Large Reason For Taking VItal Signs Routine 07/27/2024 9:30 EST Heart Rate Monitored 103 bpm HI Respiratory Rate 18 br/min Systolic Blood Pressure Non-Invasive 101 mmHg Diastolic Blood Pressure Non-Invasive 72 mmHg Reason For Taking VItal Signs Routine 07/27/2024 9:15 EST Heart Rate Monitored 102 bpm HI Respiratory Rate 18 br/min Systolic Blood Pressure Non-Invasive 73 mmHg LOW Diastolic Blood Pressure Non-Invasive 47 mmHg <LLOW Reason For Taking VItal Signs Routine 07/27/2024 9:10 EST Temperature Temporal Artery 36.6 DegC Heart Rate Monitored 119 bpm HI Respiratory Rate 18 br/min Systolic Blood Pressure Non-Invasive 91 mmHg Diastolic Blood Pressure Non-Invasive 68 mmHg Reason For Taking VItal Signs Routine 07/27/2024 9:00 EST Heart Rate Monitored 119 bpm HI Respiratory Rate 18 br/min Systolic Blood Pressure Non-Invasive 86 mmHg LOW Diastolic Blood Pressure Non-Invasive 45 mmHg <LLOW Reason For Taking VItal Signs Routine 07/27/2024 8:45 EST Temperature Temporal Artery 37.0 DegC Heart Rate Monitored 131 bpm HI Respiratory Rate 18 br/min Systolic Blood Pressure Non-Invasive 85 mmHg LOW Diastolic Blood Pressure Non-Invasive 38 mmHg <LLOW Reason For Taking VItal Signs Routine 07/27/2024 8:30 EST Heart Rate Monitored 111 bpm HI Respiratory Rate 16 br/min Systolic Blood Pressure Non-Invasive 106 mmHg Diastolic Blood Pressure Non-Invasive 66 mmHg Reason For Taking VItal Signs Routine 07/27/2024 8:15 EST Heart Rate Monitored 104 bpm HI Respiratory Rate 16 br/min Systolic Blood Pressure Non-Invasive 100 mmHg Diastolic Blood Pressure Non-Invasive 54 mmHg LOW Reason For Taking VItal Signs Routine 07/27/2024 8:00 EST Temperature Temporal Artery 36.1 DegC Heart Rate Monitored 105 bpm HI Respiratory Rate 16 br/min Systolic Blood Pressure Non-Invasive 107 mmHg Diastolic Blood Pressure Non-Invasive 61 mmHg Reason For Taking VItal Signs Routine 07/27/2024 7:45 EST Heart Rate Monitored 103 bpm HI Respiratory Rate 16 br/min Systolic Blood Pressure Non-Invasive 69 mmHg LOW Diastolic Blood Pressure Non-Invasive 33 mmHg <LLOW Reason For Taking VItal Signs Routine 07/27/2024 7:30 EST Heart Rate Monitored 94 bpm Respiratory Rate 16 br/min Systolic Blood Pressure Non-Invasive 70 mmHg LOW Diastolic Blood Pressure Non-Invasive 36 mmHg <LLOW Reason For Taking VItal Signs Routine 07/27/2024 7:15 EST Temperature Temporal Artery 36.2 DegC Heart Rate Monitored 102 bpm HI Respiratory Rate 16 br/min Systolic Blood Pressure Non-Invasive 79 mmHg LOW Diastolic Blood Pressure Non-Invasive 36 mmHg <LLOW Blood Pressure Method Automatic Blood Pressure Location Right arm Blood Pressure Cuff Size Large Reason For Taking VItal Signs Routine 07/27/2024 7:00 EST Heart Rate Monitored 97 bpm Systolic Blood Pressure Non-Invasive 81 mmHg LOW Diastolic Blood Pressure Non-Invasive 38 mmHg <LLOW Reason For Taking VItal Signs Routine 07/27/2024 6:50 EST Temperature Temporal Artery 36.5 DegC Heart Rate Monitored 109 bpm HI Systolic Blood Pressure Non-Invasive 88 mmHg LOW Diastolic Blood Pressure Non-Invasive 35 mmHg <LLOW Reason For Taking VItal Signs Routine 07/27/2024 6:30 EST Heart Rate Monitored 110 bpm HI Systolic Blood Pressure Non-Invasive 106 mmHg Diastolic Blood Pressure Non-Invasive 71 mmHg Reason For Taking VItal Signs Routine 07/27/2024 6:15 EST Heart Rate Monitored 110 bpm HI Systolic Blood Pressure Non-Invasive 110 mmHg Diastolic Blood Pressure Non-Invasive 59 mmHg LOW Reason For Taking VItal Signs Routine 07/27/2024 6:02 EST Heart Rate Monitored 105 bpm HI Systolic Blood Pressure Non-Invasive 92 mmHg Diastolic Blood Pressure Non-Invasive 51 mmHg LOW Reason For Taking VItal Signs Routine 07/27/2024 5:47 EST Temperature Temporal Artery 36.4 DegC Heart Rate Monitored 103 bpm HI Systolic Blood Pressure Non-Invasive 97 mmHg Diastolic Blood Pressure Non-Invasive 65 mmHg Reason For Taking VItal Signs Routine 07/27/2024 5:30 EST Heart Rate Monitored 103 bpm HI Systolic Blood Pressure Non-Invasive 102 mmHg Diastolic Blood Pressure Non-Invasive 60 mmHg Reason For Taking VItal Signs Routine 07/27/2024 5:15 EST Heart Rate Monitored 105 bpm HI Systolic Blood Pressure Non-Invasive 97 mmHg Diastolic Blood Pressure Non-Invasive 60 mmHg Reason For Taking VItal Signs Routine 07/27/2024 5:02 EST Heart Rate Monitored 103 bpm HI Systolic Blood Pressure Non-Invasive 96 mmHg Diastolic Blood Pressure Non-Invasive 61 mmHg Reason For Taking VItal Signs Routine 07/27/2024 4:45 EST Temperature Temporal Artery 36.8 DegC Heart Rate Monitored 89 bpm Systolic Blood Pressure Non-Invasive 87 mmHg LOW Diastolic Blood Pressure Non-Invasive 30 mmHg <LLOW Reason For Taking VItal Signs Routine 07/27/2024 4:34 EST Heart Rate Monitored 98 bpm Systolic Blood Pressure Non-Invasive 89 mmHg LOW Diastolic Blood Pressure Non-Invasive 42 mmHg <LLOW Reason For Taking VItal Signs Routine 07/27/2024 4:15 EST Heart Rate Monitored 98 bpm Systolic Blood Pressure Non-Invasive 85 mmHg LOW Diastolic Blood Pressure Non-Invasive 35 mmHg <LLOW Reason For Taking VItal Signs Routine 07/27/2024 4:03 EST Temperature Temporal Artery 36.4 DegC Heart Rate Monitored 94 bpm Systolic Blood Pressure Non-Invasive 85 mmHg LOW Diastolic Blood Pressure Non-Invasive 31 mmHg <LLOW Reason For Taking VItal Signs Routine 07/27/2024 3:45 EST Heart Rate Monitored 98 bpm Systolic Blood Pressure Non-Invasive 87 mmHg LOW Diastolic Blood Pressure Non-Invasive 31 mmHg <LLOW Reason For Taking VItal Signs Routine 07/27/2024 3:30 EST Heart Rate Monitored 123 bpm HI Systolic Blood Pressure Non-Invasive 88 mmHg LOW Diastolic Blood Pressure Non-Invasive 47 mmHg <LLOW Reason For Taking VItal Signs Routine 07/27/2024 3:15 EST Temperature Temporal Artery 36.4 DegC Heart Rate Monitored 110 bpm HI Systolic Blood Pressure Non-Invasive 95 mmHg Diastolic Blood Pressure Non-Invasive 40 mmHg <LLOW Reason For Taking VItal Signs Routine 07/27/2024 3:06 EST Heart Rate Monitored 107 bpm HI Systolic Blood Pressure Non-Invasive 107 mmHg Diastolic Blood Pressure Non-Invasive 47 mmHg <LLOW Reason For Taking VItal Signs Routine 07/27/2024 3:01 EST Heart Rate Monitored 115 bpm HI Systolic Blood Pressure Non-Invasive 115 mmHg Diastolic Blood Pressure Non-Invasive 54 mmHg LOW Reason For Taking VItal Signs Routine 07/27/2024 2:57 EST Heart Rate Monitored 127 bpm HI Systolic Blood Pressure Non-Invasive 102 mmHg Diastolic Blood Pressure Non-Invasive 54 mmHg LOW Reason For Taking VItal Signs Routine 07/27/2024 2:55 EST Heart Rate Monitored 103 bpm HI Systolic Blood Pressure Non-Invasive 118 mmHg Diastolic Blood Pressure Non-Invasive 43 mmHg <LLOW Reason For Taking VItal Signs Routine 07/27/2024 2:51 EST Heart Rate Monitored 111 bpm HI Systolic Blood Pressure Non-Invasive 94 mmHg Diastolic Blood Pressure Non-Invasive 67 mmHg Reason For Taking VItal Signs Routine 07/27/2024 2:50 EST Heart Rate Monitored 111 bpm HI Systolic Blood Pressure Non-Invasive 94 mmHg Diastolic Blood Pressure Non-Invasive 67 mmHg Reason For Taking VItal Signs Routine 07/27/2024 2:46 EST Heart Rate Monitored 108 bpm HI Systolic Blood Pressure Non-Invasive 139 mmHg Diastolic Blood Pressure Non-Invasive 71 mmHg Reason For Taking VItal Signs Routine 07/27/2024 2:44 EST Heart Rate Monitored 101 bpm HI Systolic Blood Pressure Non-Invasive 131 mmHg Diastolic Blood Pressure Non-Invasive 76 mmHg Reason For Taking VItal Signs Routine 07/27/2024 2:34 EST Heart Rate Monitored 96 bpm Systolic Blood Pressure Non-Invasive 147 mmHg HI Diastolic Blood Pressure Non-Invasive 76 mmHg Reason For Taking VItal Signs Routine 07/27/2024 1:07 EST Temperature Temporal Artery 36.3 DegC Heart Rate Monitored 86 bpm Systolic Blood Pressure Non-Invasive 142 mmHg HI Diastolic Blood Pressure Non-Invasive 71 mmHg Reason For Taking VItal Signs Routine 07/27/2024 0:00 EST Temperature Temporal Artery 36.3 DegC Heart Rate Monitored 102 bpm HI Systolic Blood Pressure Non-Invasive 144 mmHg HI Diastolic Blood Pressure Non-Invasive 82 mmHg Reason For Taking VItal Signs Routine 07/26/2024 23:05 EST Heart Rate Monitored 96 bpm Systolic Blood Pressure Non-Invasive 133 mmHg Diastolic Blood Pressure Non-Invasive 72 mmHg Reason For Taking VItal Signs Routine 07/26/2024 22:15 EST Temperature Temporal Artery 36.6 DegC Heart Rate Monitored 94 bpm Systolic Blood Pressure Non-Invasive 134 mmHg Diastolic Blood Pressure Non-Invasive 81 mmHg Reason For Taking VItal Signs Routine 07/26/2024 21:10 EST Temperature Temporal Artery 36.4 DegC Heart Rate Monitored 99 bpm Systolic Blood Pressure Non-Invasive 137 mmHg Diastolic Blood Pressure Non-Invasive 74 mmHg Reason For Taking VItal Signs Routine 07/26/2024 20:03 EST Temperature Temporal Artery 36.5 DegC Heart Rate Monitored 86 bpm Systolic Blood Pressure Non-Invasive 135 mmHg Diastolic Blood Pressure Non-Invasive 76 mmHg Reason For Taking VItal Signs Routine 07/26/2024 18:30 EST Temperature Temporal Artery 36.2 DegC Heart Rate Monitored 93 bpm Respiratory Rate 18 br/min Systolic Blood Pressure Non-Invasive 128 mmHg Diastolic Blood Pressure Non-Invasive 76 mmHg Reason For Taking VItal Signs Routine 07/26/2024 17:30 EST Temperature Oral 36.4 DegC Heart Rate Monitored 104 bpm HI Respiratory Rate 18 br/min Systolic Blood Pressure Non-Invasive 132 mmHg Diastolic Blood Pressure Non-Invasive 69 mmHg Reason For Taking VItal Signs Routine 07/26/2024 16:30 EST Temperature Temporal Artery 36.3 DegC Heart Rate Monitored 107 bpm HI Respiratory Rate 18 br/min Systolic Blood Pressure Non-Invasive 140 mmHg Diastolic Blood Pressure Non-Invasive 70 mmHg Reason For Taking VItal Signs Routine 07/26/2024 15:30 EST Temperature Temporal Artery 36.3 DegC Heart Rate Monitored 98 bpm Respiratory Rate 18 br/min Systolic Blood Pressure Non-Invasive 141 mmHg HI Diastolic Blood Pressure Non-Invasive 75 mmHg Blood Pressure Method Automatic Blood Pressure Location Right arm Blood Pressure Cuff Size Large Reason For Taking VItal Signs Routine 07/26/2024 14:30 EST Temperature Oral 36.7 DegC Heart Rate Monitored 103 bpm HI Respiratory Rate 18 br/min Systolic Blood Pressure Non-Invasive 139 mmHg Diastolic Blood Pressure Non-Invasive 76 mmHg Reason For Taking VItal Signs Routine 07/26/2024 13:30 EST Temperature Temporal Artery 36.3 DegC Heart Rate Monitored 89 bpm Respiratory Rate 18 br/min Systolic Blood Pressure Non-Invasive 145 mmHg HI Diastolic Blood Pressure Non-Invasive 72 mmHg Reason For Taking VItal Signs Routine 07/26/2024 12:30 EST Temperature Temporal Artery 36.0 DegC Temperature Oral In Error DegC (In Error) Heart Rate Monitored 120 bpm HI Respiratory Rate 18 br/min Systolic Blood Pressure Non-Invasive 130 mmHg Diastolic Blood Pressure Non-Invasive 78 mmHg Reason For Taking VItal Signs Routine 07/26/2024 11:30 EST Temperature Oral 36.4 DegC Heart Rate Monitored 107 bpm HI Respiratory Rate 18 br/min Systolic Blood Pressure Non-Invasive 130 mmHg Diastolic Blood Pressure Non-Invasive 74 mmHg Reason For Taking VItal Signs Routine 07/26/2024 10:30 EST Temperature Oral 36.5 DegC Heart Rate Monitored 92 bpm Respiratory Rate 18 br/min Systolic Blood Pressure Non-Invasive 142 mmHg HI Diastolic Blood Pressure Non-Invasive 83 mmHg Reason For Taking VItal Signs Routine 07/26/2024 9:30 EST Temperature Oral 36.9 DegC Heart Rate Monitored 93 bpm Systolic Blood Pressure Non-Invasive 132 mmHg Diastolic Blood Pressure Non-Invasive 67 mmHg Blood Pressure Method Automatic Blood Pressure Location Right arm Blood Pressure Cuff Size Large Reason For Taking VItal Signs Routine 07/26/2024 8:30 EST Temperature Oral 36.5 DegC Heart Rate Monitored 113 bpm HI Respiratory Rate 18 br/min Systolic Blood Pressure Non-Invasive 144 mmHg HI Diastolic Blood Pressure Non-Invasive 72 mmHg Blood Pressure Method Automatic Blood Pressure Location Right arm Blood Pressure Cuff Size Large Reason For Taking VItal Signs Routine 07/26/2024 7:45 EST Temperature Oral 36.4 DegC Heart Rate Monitored 89 bpm Respiratory Rate 18 br/min Systolic Blood Pressure Non-Invasive 141 mmHg HI Diastolic Blood Pressure Non-Invasive 68 mmHg Blood Pressure Method Automatic Blood Pressure Location Right arm Blood Pressure Cuff Size Large Reason For Taking VItal Signs Routine 07/26/2024 6:30 EST Temperature Oral 36.8 DegC 07/26/2024 5:15 EST Temperature Oral 36.4 DegC 07/26/2024 3:39 EST Temperature Temporal Artery 36 DegC Heart Rate Monitored 87 bpm Respiratory Rate 18 br/min Systolic Blood Pressure Non-Invasive 143 mmHg HI Diastolic Blood Pressure Non-Invasive 72 mmHg Vital Signs (last 24 hrs) Last Charted Temp Iguklgft06.8 DegC (JUL 27 10:) Heart Rate MonitoredH 101 bpm (JUL 27 10:15) [id number] mmHg (JUL 27 10:15) DBPL 54 mmHg (JUL 27 10:15) Measurements from flowsheet : Measurements 07/26/2024 3:48 EST Height 163.5 cm Admission Weight 119 kg [place] Body Weight 55.55 kg BSA Admission 2.2 Body Mass Index 44.52 kg/m2 Pain assessment: Pain Assessment 07/27/2024 10:15 EST Primary Pain Intensity 0 Pain Associated Symptoms None Pain Scale Type 0-10 Pain scale 07/27/2024 10:00 EST Primary Pain Intensity 0 Pain Associated Symptoms None Pain Scale Type 0-10 Pain scale 07/27/2024 9:45 EST Primary Pain Intensity 0 Pain Associated Symptoms None Pain Scale Type 0-10 Pain scale 07/27/2024 9:00 EST Primary Pain Intensity 0 Pain Associated Symptoms None Pain Scale Type 0-10 Pain scale 07/27/2024 8:30 EST Primary Pain Intensity 0 Pain Associated Symptoms None Pain Scale Type 0-10 Pain scale 07/27/2024 8:00 EST Primary Pain Intensity 0 Pain Associated Symptoms None Pain Scale Type 0-10 Pain scale 07/27/2024 7:45 EST Primary Pain Intensity 0 Pain Associated Symptoms None Pain Scale Type 0-10 Pain scale 07/27/2024 7:30 EST Primary Pain Intensity 0 Pain Associated Symptoms None Pain Scale Type 0-10 Pain scale 07/27/2024 7:15 EST Primary Pain Intensity 0 Pain Associated Symptoms None Pain Scale Type 0-10 Pain scale 07/26/2024 18:30 EST Primary Pain Intensity 8 Pain Associated Symptoms None Pain Scale Type 0-10 Pain scale 07/26/2024 17:30 EST Primary Pain Intensity 8 Pain Associated Symptoms None Pain Scale Type 0-10 Pain scale 07/26/2024 16:30 EST Primary Pain Intensity 8 Pain Associated Symptoms None Pain Scale Type 0-10 Pain scale 07/26/2024 15:30 EST Primary Pain Location Pelvic Primary Pain Laterality Medial Primary Pain Intensity 8 Primary Pain Time Pattern intermittent Primary Pain Onset Gradual Primary Pain Duration Intermittent Primary Pain Quality Pressure Primary Pain Non-Pharma Intervention Relaxation techniques, Repositioning Primary Pain Aggravating Factors None Primary Pain Alleviating Factors Deep breathing, Repositioning Primary Pain Nonverbal Response Facial grimace Pain Associated Symptoms None Pain Scale Type 0-10 Pain scale 07/26/2024 14:30 EST Primary Pain Intensity 8 Pain Associated Symptoms None Pain Scale Type 0-10 Pain scale 07/26/2024 13:30 EST Primary Pain Intensity 8 Pain Associated Symptoms None Pain Scale Type 0-10 Pain scale 07/26/2024 12:30 EST Primary Pain Intensity 6 Pain Associated Symptoms None Pain Scale Type 0-10 Pain scale 07/26/2024 11:30 EST Primary Pain Intensity 6 Pain Associated Symptoms None Pain Scale Type 0-10 Pain scale 07/26/2024 10:30 EST Primary Pain Intensity 7 Pain Associated Symptoms None Pain Scale Type 0-10 Pain scale 07/26/2024 9:30 EST Primary Pain Intensity 7 Pain Associated Symptoms None Pain Scale Type 0-10 Pain scale 07/26/2024 8:30 EST Primary Pain Intensity 7 Pain Associated Symptoms None Pain Scale Type 0-10 Pain scale 07/26/2024 7:45 EST Primary Pain Location Pelvic Primary Pain Laterality Medial Primary Pain Intensity 7 Primary Pain Time Pattern intermittent Primary Pain Onset Gradual Primary Pain Duration Intermittent Primary Pain Quality Pressure Primary Pain Non-Pharma Intervention Relaxation techniques, Repositioning Primary Pain Aggravating Factors None Primary Pain Alleviating Factors Deep breathing, Repositioning Primary Pain Nonverbal Response Facial grimace Pain Associated Symptoms None Pain Scale Type 0-10 Pain scale 07/26/2024 3:39 EST Primary Pain Intensity 9 Pain Scale Type 0-10 Pain scale . General: Alert and oriented. Airway: Normal temporomandibular joint mobility. Mallampati classification: II (soft palate, fauces, uvula visible). Head: Normocephalic. Dentition Evaluation: Own teeth. Neck: Supple. Respiratory: Lungs are clear to auscultation. Cardiovascular: Normal rate. Heart Sounds: Normal. Gastrointestinal: Soft. Musculoskeletal Normal range of motion. Integumentary: Intact. Neurologic: Alert, Oriented. Review / Management Results review: Labs (Last four charted values) WBC H 17.7(JUL 26) Hgb L 10.9(JUL 26) Hct L 31.8(JUL 26) Plt 210(JUL 26) , Lab results 07/27/2024 10:27 EST Monitoring Annotations Repaired completed 07/27/2024 10:15 EST Temperature Temporal Artery 36.8 DegC Heart Rate Monitored 101 bpm HI Respiratory Rate 18 br/min Systolic Blood Pressure Non-Invasive 100 mmHg Diastolic Blood Pressure Non-Invasive 54 mmHg LOW Reason For Taking VItal Signs Routine Primary Pain Intensity 0 Pain Associated Symptoms None Pain Scale Type 0-10 Pain scale Narcotic Mode of Delivery PCEA pump Narcotic Assessment Type Routine check Narcotic Pump Activity Pump alarm on, Pump davis pad locked, Narcotic pump locked Narcotic Sedation Level Alert Narcotic Safety Assessment Button in reach, Connections secure, IV patency verified, Bed, tubing pump labeled Epidural, Maintain IV access until BASEBALL PITCHER D/C or 24hr after neuraxial, No other narcotics, No anticoags / blood thiners with epidural Heart Rhythm Regular Oxygen Therapy Room air Oxygen Saturation 98 % Bladder Distention Absent Fundal Height At umbilicus Fundal Position Midline Fundal Tone Firm Lochia Color Rubra Lochia Amount Moderate Wrist Left 07/26/2024 18 gauge Peripheral IV Activity: Assessed Peripheral IV Dressing Condition: Clean, Dry, Intact Peripheral IV Dressing Activity: Transparent dressing Peripheral IV Line Status/Patency: Continuous infusion Peripheral IV Site Condition: No complications Peripheral IV Equipment: Extension set, Stopcock, IV Pump, PRN Adaptor Rachel Motor (2) Moves 4 extremities voluntarily or on command Rachel Respirations (2) Spontaneous respiration without support, RR > 10 Rachel Blood Pressure (2) BP 20% above or below preanesthetic level Rachel Pulse (2) Pulse 20% above or below preanesthetic level Rachel Oxygen Saturation (2) 94% or more Rachel Level of Consciousness (2) Fully awake Rachel III Score 12 Standard Safety Safety level maintained, Precautions maintained 07/27/2024 10:10 EST misoprostol 1000 mcg mcg 07/27/2024 10:08 EST oxytocin Begin Bag 2 mL unit(s) LR Premix Diluent Begin Bag 500 mL mL 07/27/2024 10:00 EST Monitoring Annotations 2 degree & [facility] 07/27/[facility] 10:00 EST Temperature Temporal Artery 36.7 DegC Heart Rate Monitored 102 bpm HI Respiratory Rate 18 br/min Systolic Blood Pressure Non-Invasive 114 mmHg Diastolic Blood Pressure Non-Invasive 59 mmHg LOW Reason For Taking VItal Signs Routine Primary Pain Intensity 0 Pain Associated Symptoms None Pain Scale Type 0-10 Pain scale Narcotic Mode of Delivery PCEA pump Narcotic Assessment Type Routine check Narcotic Pump Activity Pump alarm on, Pump davis pad locked, Narcotic pump locked Narcotic Sedation Level Alert Narcotic Safety Assessment Button in reach, Connections secure, IV patency verified, Bed, tubing pump labeled Epidural, Maintain IV access until BASEBALL PITCHER D/C or 24hr after neuraxial, No other narcotics, No anticoags / blood thiners with epidural Heart Rhythm Regular Oxygen Therapy Room air Oxygen Saturation 98 % Bladder Distention Absent Fundal Height At umbilicus Fundal Position Midline Fundal Tone Firm Lochia Color Rubra Lochia Amount Moderate Rachel Motor (2) Moves 4 extremities voluntarily or on command Rachel Respirations (2) Spontaneous respiration without support, RR > 10 Rachel Blood Pressure (2) BP 20% above or below preanesthetic level Rachel Pulse (2) Pulse 20% above or below preanesthetic level Rachel Oxygen Saturation (2) 94% or more Rachel Level of Consciousness (2) Fully awake Rachel III Score 12 07/27/2024 9:49 EST methylergonovine 0.2 mg mg 07/27/2024 9:45 EST Monitoring Annotations [facility] 07/27/2024 9:45 EST Temperature Temporal Artery 36.7 DegC Heart Rate Monitored 103 bpm HI Respiratory Rate 18 br/min Systolic Blood Pressure Non-Invasive 105 mmHg Diastolic Blood Pressure Non-Invasive 72 mmHg Blood Pressure Method Automatic Blood Pressure Location Right arm Blood Pressure Cuff Size Large Reason For Taking VItal Signs Routine Primary Pain Intensity 0 Pain Associated Symptoms None Pain Scale Type 0-10 Pain scale Narcotic Mode of Delivery PCEA pump Narcotic Assessment Type Routine check Narcotic Pump Activity Pump alarm on, Pump davis pad locked, Narcotic pump locked Narcotic Sedation Level Alert Narcotic Safety Assessment Button in reach, Connections secure, IV patency verified, Bed, tubing pump labeled Epidural, Maintain IV access until BASEBALL PITCHER D/C or 24hr after neuraxial, No other narcotics, No anticoags / blood thiners with epidural Heart Rhythm Regular Oxygen Therapy Room air Oxygen Saturation 100 % Tolerating Oral Intake Yes Bladder Distention Absent Fundal Height At umbilicus Fundal Position Midline Fundal Tone Firm Lochia Color Rubra Lochia Amount Heavy Breasts Soft Nipples Intact Wrist Left 07/26/2024 18 gauge Peripheral IV Activity: Assessed Peripheral IV Dressing Condition: Clean, Dry, Intact Peripheral IV Dressing Activity: Transparent dressing Peripheral IV Line Status/Patency: Continuous infusion Peripheral IV Site Condition: No complications Peripheral IV Equipment: Extension set, Stopcock, IV Pump, PRN Adaptor Arrival Mode Bed Admission Date/Time - PACU 07/27/2024 9:45 Rachel Motor (2) Moves 4 extremities voluntarily or on command Rachel Respirations (2) Spontaneous respiration without support, RR > 10 Rachel Blood Pressure (2) BP 20% above or below preanesthetic level Rachel Pulse (2) Pulse 20% above or below preanesthetic level Rachel Oxygen Saturation (2) 94% or more Rachel Level of Consciousness (2) Fully awake Rachel III Score 12 Activity Status ADL Awake Activity Assistance Moderate assistance Maternal Activity Routine kangaroo care Hair Care Independent Oral Care Independent Surekha Care Maximum assistance Standard Safety Safety level maintained, Precautions maintained Demonstrates Correct Call Light Use Yes 07/27/2024 9:36 EST Monitoring Annotations viable male per Adonay Price CNM 07/27/2024 9:30 EST Heart Rate Monitored 103 bpm HI Respiratory Rate 18 br/min Systolic Blood Pressure Non-Invasive 101 mmHg Diastolic Blood Pressure Non-Invasive 72 mmHg Reason For Taking VItal Signs Routine Narcotic Mode of Delivery PCEA pump Narcotic Assessment Type Routine check Narcotic Pump Activity Pump alarm on, Pump davis pad locked, Narcotic pump locked Narcotic Sedation Level Alert Narcotic Safety Assessment Button in reach, Connections secure, IV patency verified, Bed, tubing pump labeled Epidural, Maintain IV access until BASEBALL PITCHER D/C or 24hr after neuraxial, No other narcotics, No anticoags / blood thiners with epidural Heart Rhythm Regular Oxygen Therapy Room air Oxygen Saturation 100 % Uterine Contraction Monitoring Method External toco Uterine Contraction Frequency Q 4-5 min Uterine Contraction Duration 70 sec Uterine Contraction Intensity, Ext Palp Strong Uterine Resting Tone, External Soft Uterine Activity Regular contractions Patient Position, OB Pushing with contractions Baby A FHR Baseline: 140 bpm FHR Monitoring Method: External US transducer Neurological Symptoms Patient denies Strength All Extremities Moderate Tone All Extremities Normal 07/27/2024 9:22 EST Recommendation - Action Sepsis 07/27/2024 9:15 EST Heart Rate Monitored 102 bpm HI Respiratory Rate 18 br/min Systolic Blood Pressure Non-Invasive 73 mmHg LOW Diastolic Blood Pressure Non-Invasive 47 mmHg <LLOW Reason For Taking VItal Signs Routine Heart Rhythm Regular Oxygen Therapy Room air Oxygen Saturation 100 % Uterine Contraction Monitoring Method External toco Uterine Contraction Frequency Q 3-4 min Uterine Contraction Duration 60-70 sec Uterine Contraction Intensity, Ext Palp Strong Uterine Resting Tone, External Soft Uterine Activity Regular contractions Patient Position, OB Pushing with contractions Baby A FHR Baseline: 120 bpm FHR Monitoring Method: External US transducer 07/27/2024 9:10 EST Temperature Temporal Artery 36.6 DegC Heart Rate Monitored 119 bpm HI Respiratory Rate 18 br/min Systolic Blood Pressure Non-Invasive 91 mmHg Diastolic Blood Pressure Non-Invasive 68 mmHg Reason For Taking VItal Signs Routine Heart Rhythm Regular Oxygen Therapy Room air Oxygen Saturation 100 % 07/27/2024 9:00 EST Heart Rate Monitored 119 bpm HI Respiratory Rate 18 br/min Systolic Blood Pressure Non-Invasive 86 mmHg LOW Diastolic Blood Pressure Non-Invasive 45 mmHg <LLOW Reason For Taking VItal Signs Routine Primary Pain Intensity 0 Pain Associated Symptoms None Pain Scale Type 0-10 Pain scale Narcotic Mode of Delivery PCEA pump Narcotic Assessment Type Routine check Narcotic Pump Activity Pump alarm on, Pump davis pad locked, Narcotic pump locked Narcotic Sedation Level Alert Narcotic Safety Assessment Button in reach, Connections secure, IV patency verified, Bed, tubing pump labeled Epidural, Maintain IV access until BASEBALL PITCHER D/C or 24hr after neuraxial, No other narcotics, No anticoags / blood thiners with epidural Heart Rhythm Regular Oxygen Therapy Room air Oxygen Saturation 98 % Uterine Contraction Monitoring Method External toco Uterine Contraction Frequency Q 3-4 min Uterine Contraction Duration 90 sec Uterine Contraction Intensity, Ext Palp Strong Uterine Resting Tone, External Soft Uterine Activity Regular contractions Patient Position, OB Pushing with contractions, Left tilt Baby A FHR Baseline: 145 bpm FHR Baseline Variability: Moderate variability FHR Accelerations: Present FHR Deceleration: Present FHR Deceleration Description: Variable FHR Deceleration Intervention: Other: Repositioned FHR Monitoring Method: External US transducer Wrist Left 07/26/2024 18 gauge Peripheral IV Activity: Assessed Peripheral IV Dressing Condition: Clean, Dry, Intact Peripheral IV Dressing Activity: Transparent dressing Peripheral IV Line Status/Patency: Continuous infusion Peripheral IV Site Condition: No complications Peripheral IV Equipment: Extension set, Stopcock, IV Pump, PRN Adaptor Neurological Symptoms Patient denies Strength All Extremities Moderate Tone All Extremities Normal Activity Status ADL Awake Standard Safety Safety level maintained, Precautions maintained 07/27/2024 8:45 EST Temperature Temporal Artery 37.0 DegC Heart Rate Monitored 131 bpm HI Respiratory Rate 18 br/min Systolic Blood Pressure Non-Invasive 85 mmHg LOW Diastolic Blood Pressure Non-Invasive 38 mmHg <LLOW Reason For Taking VItal Signs Routine Heart Rhythm Regular Oxygen Therapy Room air Oxygen Saturation 99 % Uterine Contraction Monitoring Method External toco Uterine Contraction Frequency Q 3-4 min Uterine Contraction Duration 80-90 sec Uterine Contraction Intensity, Ext Palp Strong Uterine Resting Tone, External Soft Uterine Activity Regular contractions Patient Position, OB Pushing with contractions Baby A FHR Baseline: 145 bpm FHR Baseline Variability: Moderate variability FHR Accelerations: Present FHR Monitoring Method: External US transducer 07/27/2024 8:36 EST Urethral Indwelling/Continuous 16 Fr 07/27/2024 Urinary Catheter Activity: Discontinued Urinary Catheter Site Condition: No complications Urinary Catheter Output: 50 mL Urinary Catheter Care Completed: Yes 07/27/2024 8:30 EST Heart Rate Monitored 111 bpm HI Respiratory Rate 16 br/min Systolic Blood Pressure Non-Invasive 106 mmHg Diastolic Blood Pressure Non-Invasive 66 mmHg Reason For Taking VItal Signs Routine Primary Pain Intensity 0 Pain Associated Symptoms None Pain Scale Type 0-10 Pain scale Narcotic Mode of Delivery PCEA pump Narcotic Assessment Type Routine check Narcotic Pump Activity Pump alarm on, Pump davis pad locked, Narcotic pump locked Narcotic Sedation Level Alert Narcotic Safety Assessment Button in reach, Connections secure, IV patency verified, Bed, tubing pump labeled Epidural, Maintain IV access until BASEBALL PITCHER D/C or 24hr after neuraxial, No other narcotics, No anticoags / blood thiners with epidural Heart Rhythm Regular Oxygen Therapy Room air Oxygen Saturation 99 % Uterine Contraction Monitoring Method External toco Uterine Contraction Frequency Q 4 min Uterine Contraction Duration 80-90 sec Uterine Contraction Intensity, Ext Palp Strong Uterine Resting Tone, External Soft Uterine Activity Regular contractions Patient Position, OB Pushing with contractions, Left tilt Baby A FHR Baseline: 125 bpm FHR Baseline Variability: Moderate variability FHR Accelerations: Present FHR Monitoring Method: External US transducer Neurological Symptoms Patient denies Strength All Extremities Moderate Tone All Extremities Normal Activity Status ADL Awake 07/27/2024 8:25 EST Monitoring Annotations Provider at bedside 07/27/2024 8:17 EST Recommendation - Action Sepsis 07/27/2024 8:15 EST Heart Rate Monitored 104 bpm HI Respiratory Rate 16 br/min Systolic Blood Pressure Non-Invasive 100 mmHg Diastolic Blood Pressure Non-Invasive 54 mmHg LOW Reason For Taking VItal Signs Routine Heart Rhythm Regular Oxygen Therapy Room air Oxygen Saturation 94 % Uterine Contraction Monitoring Method External toco Uterine Contraction Frequency Q 4 min Uterine Contraction Duration 90 sec Uterine Contraction Intensity, Ext Palp Moderate Uterine Resting Tone, External Soft Uterine Activity Regular contractions Patient Position, OB Pushing with contractions Baby A FHR Baseline: 145 bpm FHR Baseline Variability: Moderate variability FHR Accelerations: Present FHR Deceleration: Present FHR Deceleration Description: Variable FHR Deceleration Intervention: Other: Repositioned FHR Monitoring Method: External US transducer 07/27/2024 8:00 EST Temperature Temporal Artery 36.1 DegC Heart Rate Monitored 105 bpm HI Respiratory Rate 16 br/min Systolic Blood Pressure Non-Invasive 107 mmHg Diastolic Blood Pressure Non-Invasive 61 mmHg Reason For Taking VItal Signs Routine Primary Pain Intensity 0 Pain Associated Symptoms None Pain Scale Type 0-10 Pain scale Narcotic Mode of Delivery PCEA pump Narcotic Assessment Type Routine check Narcotic Pump Activity Pump alarm on, Pump davis pad locked, Narcotic pump locked Narcotic Sedation Level Alert Narcotic Safety Assessment Button in reach, Connections secure, IV patency verified, Bed, tubing pump labeled Epidural, Maintain IV access until BASEBALL PITCHER D/C or 24hr after neuraxial, No other narcotics, No anticoags / blood thiners with epidural Heart Rhythm Regular Oxygen Therapy Room air Oxygen Saturation 96 % Urethral Indwelling/Continuous 16 Fr 07/27/2024 Urinary Catheter Activity: Assessed Urinary Catheter Secured: Securement device on Urinary Catheter Drainage System: Dependent drainage bag Urinary Catheter Site Condition: No complications Urinary Catheter Output: 650 mL Urinary Catheter Care Completed: Yes Uterine Contraction Monitoring Method External toco Uterine Contraction Frequency Q 4 min Uterine Contraction Duration 50 sec Uterine Contraction Intensity, Ext Palp Moderate Uterine Resting Tone, External Soft Uterine Activity Regular contractions Patient Position, OB Right tilt, Semi-Anderson's Patient Position, OB Pushing with contractions Baby A FHR Baseline: 145 bpm FHR Baseline Variability: Moderate variability FHR Accelerations: Present FHR Deceleration: Present FHR Deceleration Description: Variable FHR Deceleration Intervention: Other: Repositioned FHR Monitoring Method: External US transducer Wrist Left 07/26/2024 18 gauge Peripheral IV Activity: Assessed Peripheral IV Dressing Condition: Clean, Dry, Intact Peripheral IV Dressing Activity: Transparent dressing Peripheral IV Line Status/Patency: Continuous infusion Peripheral IV Site Condition: No complications Peripheral IV Equipment: Extension set, Stopcock, IV Pump, PRN Adaptor Neurological Symptoms Patient denies Strength All Extremities Moderate (Modified) Tone All Extremities Normal Activity Status ADL Awake Standard Safety Safety level maintained, Precautions maintained 07/27/2024 7:50 EST Cervix Dilation 10 cm Vaginal Exam Performed By RAHUL PRICE Complete Cervical Dilation Date/Time 07/27/2024 7:50 Length of Labor, 1st Stage: 2,075 minute(s) Length of Labor, 1st Stage Hrs Ca.6 hour(s) D-EGA at Documented Date, Time 40W 6D 07/27/2024 7:45 EST Monitoring Annotations Provider at bedside 07/27/2024 7:45 EST Heart Rate Monitored 103 bpm HI Respiratory Rate 16 br/min Systolic Blood Pressure Non-Invasive 69 mmHg LOW Diastolic Blood Pressure Non-Invasive 33 mmHg <LLOW Reason For Taking VItal Signs Routine Primary Pain Intensity 0 Pain Associated Symptoms None Pain Scale Type 0-10 Pain scale Narcotic Mode of Delivery PCEA pump Narcotic Assessment Type Routine check Narcotic Pump Activity Pump alarm on, Pump davis pad locked, Narcotic pump locked Narcotic Sedation Level Alert Narcotic Safety Assessment Button in reach, Connections secure, IV patency verified, Bed, tubing pump labeled Epidural, Maintain IV access until BASEBALL PITCHER D/C or 24hr after neuraxial, No other narcotics, No anticoags / blood thiners with epidural Heart Rhythm Regular Oxygen Therapy Room air Oxygen Saturation 99 % Uterine Contraction Monitoring Method External toco Uterine Contraction Frequency Q 3-5 min Uterine Contraction Duration 30-50 sec Uterine Contraction Intensity, Ext Palp Moderate Uterine Resting Tone, External Soft Uterine Activity Regular contractions Patient Position, OB Left lateral, Peanut ball Baby A FHR Baseline: 155 bpm FHR Baseline Variability: Moderate variability FHR Accelerations: Present FHR Deceleration: Present FHR Deceleration Description: Variable FHR Deceleration Intervention: IV Bolus, Other: Repositioned FHR Monitoring Method: External US transducer 07/27/2024 7:43 EST O-Remains Free From Injury Progressing towards goal Edu-Pain Management Verbalizes/Nonverbally indicates understanding Ed- Monitoring Verbalizes/Nonverbally indicates understanding Ed-Safety Verbalizes/Nonverbally indicates understanding Ed-Discharge instructions Needs further teaching Ed-Complications of Labor/Delivery Verbalizes/Nonverbally indicates understanding 07/27/2024 7:30 EST Heart Rate Monitored 94 bpm Respiratory Rate 16 br/min Systolic Blood Pressure Non-Invasive 70 mmHg LOW Diastolic Blood Pressure Non-Invasive 36 mmHg <LLOW Reason For Taking VItal Signs Routine Primary Pain Intensity 0 Pain Associated Symptoms None Pain Scale Type 0-10 Pain scale Narcotic Mode of Delivery PCEA pump Narcotic Assessment Type Routine check Narcotic Pump Activity Pump alarm on, Pump davis pad locked, Narcotic pump locked Narcotic Sedation Level Alert Narcotic Safety Assessment Button in reach, Connections secure, IV patency verified, Bed, tubing pump labeled Epidural, Maintain IV access until BASEBALL PITCHER D/C or 24hr after neuraxial, No other narcotics, No anticoags / blood thiners with epidural Heart Rhythm Regular Oxygen Therapy Room air Oxygen Saturation 97 % Uterine Contraction Monitoring Method External toco Uterine Contraction Frequency Q 4 min Uterine Contraction Duration 50 sec Uterine Contraction Intensity, Ext Palp Moderate Uterine Resting Tone, External Soft Uterine Activity Regular contractions Patient Position, OB Left lateral Baby A FHR Monitoring Method: External US transducer Heart Tone: 160 07/27/2024 7:26 EST Monitoring Annotations Tocotransducer adjusted; Ultrasound transducer adjusted 07/27/2024 7:15 EST Monitoring Annotations IV bolus 07/27/2024 7:15 EST Monitoring Annotations Tocotransducer adjusted; Ultrasound transducer adjusted 07/27/2024 7:15 EST Temperature Temporal Artery 36.2 DegC Heart Rate Monitored 102 bpm HI Respiratory Rate 16 br/min Systolic Blood Pressure Non-Invasive 79 mmHg LOW Diastolic Blood Pressure Non-Invasive 36 mmHg <LLOW Blood Pressure Method Automatic Blood Pressure Location Right arm Blood Pressure Cuff Size Large Reason For Taking VItal Signs Routine Primary Pain Intensity 0 Pain Associated Symptoms None Pain Scale Type 0-10 Pain scale Narcotic Mode of Delivery PCEA pump Narcotic Assessment Type Routine check Narcotic Pump Activity Pump alarm on, Pump davis pad locked, Narcotic pump locked Narcotic Sedation Level Alert Narcotic Safety Assessment Button in reach, Connections secure, IV patency verified, Bed, tubing pump labeled Epidural, Maintain IV access until BASEBALL PITCHER D/C or 24hr after neuraxial, No other narcotics, No anticoags / blood thiners with epidural Heart Rhythm Regular Murmur Auscultated No Dorsalis Pedis Pulse, Left 2+ Normal Dorsalis Pedis Pulse, Right 2+ Normal Pedal edema Bilateral Edema Ratin+ mild/4mm Respirations Unlabored Respiratory Pattern Regular Breath Sounds Auscultated Anterior and posterior All Lobes Breath Sounds Clear, Equal Oxygen Therapy Room air Oxygen Saturation 98 % Abdomen Description Soft Bowel Continence Continent Swallowing Disorder None Bowel Sounds All Quadrants Present Tolerating Oral Intake Yes Urinary Elimination Urinary catheter draining Bladder Distention Absent Uterine Contraction Monitoring Method External toco Uterine Contraction Frequency Q 4 min Uterine Contraction Duration 30 sec Uterine Contraction Intensity, Ext Palp Moderate Uterine Resting Tone, External Soft Uterine Activity Regular contractions Patient Position, OB Left lateral, Peanut ball Baby A FHR Monitoring Method: External US transducer Heart Tone: 160 Support Person Present Support Person Involvement Supportive/involved Patient feelings/concerns Discusses care, feelings, concerns Skin Temperature Warm Skin Description [place], Dry Skin Integrity Intact, Pressure points intact Sensory Perception Adiel No impairment Moisture Adiel Rarely moist Activity Adiel Bedfast Mobility Adiel Slightly limited Nutrition Adiel Adequate Friction and Shear Adiel No apparent problem Adiel Score 18 Hospital Acquired Pressure Injury Risk None/minimal risk (score 19-23) Wrist Left 07/26/2024 18 gauge Peripheral IV Activity: Assessed Peripheral IV Dressing Condition: Clean, Dry, Intact Peripheral IV Dressing Activity: Transparent dressing Peripheral IV Line Status/Patency: Continuous infusion Peripheral IV Site Condition: No complications Peripheral IV Equipment: Extension set, Stopcock, IV Pump, PRN Adaptor Neurological Symptoms Patient denies Level of Consciousness Alert Strength All Extremities Moderate (Modified) Tone All Extremities Normal Rivera Screen Daily History of Fall in Last 3 Months Rivera No Presence of Secondary Diagnosis Rivera No Use of Ambulatory Aid Rivera None, bedrest, wheelchair, nurse IV/PRN Adapter Fall Risk Rivera Yes Gait Weak or Impaired Fall Risk Rivera Normal, bedrest, immobile Mental Status Fall Risk Rivera Oriented to own ability Rivera Fall Risk Score 20 Violence Risk Confused No Violence Risk Irritable No Violence Risk Boisterous No Violence Risk Verbal Threats No Violence Risk Physical Threats No Violence Risk Attacking Objects No Violence Risk Predictor Score 0 Violence Risk Intervention None Violence Risk Current Interventions None Affect/Behavior Appropriate, Calm, Cooperative Appearance Clean Orientation Oriented x 4 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 Significant other Orientation Assessment Oriented x 4 Ed-Plan of Care Verbalizes/Nonverbally indicates understanding Ed-Safety, Fall Verbalizes/Nonverbally indicates understanding Individuals Taught Patient Learning Readiness Willing to learn Barriers to Learning None evident Teaching Method Explanation Preferred Spoken Language Canadian Preferred Written Language Canadian Family/Caregiver Prefer Spoken Language Canadian Family/Caregiver Prefer Written Language Canadian Ed- Monitoring Verbalizes/Nonverbally indicates understanding Ed-Contractions Verbalizes/Nonverbally indicates understanding Ed-LD Safety Verbalizes/Nonverbally indicates understanding Ed-Room Orientation Verbalizes/Nonverbally indicates understanding Date/Time Transfer Accepted 07/27/2024 7:15 Nurse Receiving Report sAhkan Nelson Rn Date/Time Nurse Received Report 07/27/2024 7:15 Mobility Assistance Level Maximum assistance Activity Status ADL Awake Activity Assistance Maximum assistance Hair Care Independent Oral Care Independent Surekha Care Maximum assistance Nurse Safety Checks q2hrs Performed 7am-7pm Standard Safety ID band on, Call device within reach, Bed in low position, Wheels locked, Upper/Half-Length side-rails up, Phone within reach, personal items within reach, Visitor at bedside, Safety level maintained, Non-Slip footwear, Precautions maintained Demonstrates Correct Call Light Use Yes RN Coordination of Care 7am-7pm Adaptive Feeding Equipment None Appetite Fair Eating Difficulties None 07/27/2024 7:00 EST Heart Rate Monitored 97 bpm Systolic Blood Pressure Non-Invasive 81 mmHg LOW Diastolic Blood Pressure Non-Invasive 38 mmHg <LLOW Reason For Taking VItal Signs Routine Uterine Contraction Monitoring Method External toco Uterine Contraction Frequency 4-6 Uterine Contraction Duration 60 Uterine Contraction Intensity, Ext Palp Moderate Uterine Resting Tone, External Soft Uterine Activity Regular contractions Baby A FHR Baseline: 145 bpm FHR Baseline Variability: Moderate variability FHR Accelerations: Present FHR Deceleration: Absent FHR Interpretation Category: Category One FHR Monitoring Method: External US transducer 07/27/2024 6:52 EST Recommendation - Action Sepsis 07/27/2024 6:50 EST Temperature Temporal Artery 36.5 DegC Heart Rate Monitored 109 bpm HI Systolic Blood Pressure Non-Invasive 88 mmHg LOW Diastolic Blood Pressure Non-Invasive 35 mmHg <LLOW Reason For Taking VItal Signs Routine Cervix Dilation 8 cm Cervix Effacement 90 Station 0 Cervical Consistency Soft Cervical Position Anterior Presenting Part Vertex Presenting Part Applied to Cervix Yes Vaginal Exam Performed By RAHUL PRICE Patient Position, OB Left lateral Cleary's Score 12 oxytocin 30 munit/min unit(s) LR Premix Diluent LR Premix Diluent mL 07/27/2024 6:30 EST Heart Rate Monitored 110 bpm HI Systolic Blood Pressure Non-Invasive 106 mmHg Diastolic Blood Pressure Non-Invasive 71 mmHg Reason For Taking VItal Signs Routine Uterine Contraction Monitoring Method External toco Baby A FHR Baseline: 145 bpm FHR Baseline Variability: Moderate variability FHR Accelerations: Present FHR Deceleration: Absent FHR Interpretation Category: Category One FHR Monitoring Method: External US transducer oxytocin 28 munit/min unit(s) LR Premix Diluent LR Premix Diluent mL 07/27/2024 6:15 EST Heart Rate Monitored 110 bpm HI Systolic Blood Pressure Non-Invasive 110 mmHg Diastolic Blood Pressure Non-Invasive 59 mmHg LOW Reason For Taking VItal Signs Routine oxytocin 26 munit/min unit(s) LR Premix Diluent LR Premix Diluent mL 07/27/2024 6:02 EST Heart Rate Monitored 105 bpm HI Systolic Blood Pressure Non-Invasive 92 mmHg Diastolic Blood Pressure Non-Invasive 51 mmHg LOW Reason For Taking VItal Signs Routine Uterine Contraction Monitoring Method External toco Uterine Contraction Frequency 3-7 Uterine Contraction Duration 60 Uterine Contraction Intensity, Ext Palp Moderate Uterine Resting Tone, External Soft Uterine Activity Irregular contractions Baby A FHR Baseline: 150 bpm FHR Baseline Variability: Moderate variability FHR Accelerations: Present FHR Deceleration: Absent FHR Interpretation Category: Category One FHR Monitoring Method: External US transducer oxytocin 24 munit/min unit(s) LR Premix Diluent LR Premix Diluent mL 07/27/2024 5:47 EST Temperature Temporal Artery 36.4 DegC Heart Rate Monitored 103 bpm HI Systolic Blood Pressure Non-Invasive 97 mmHg Diastolic Blood Pressure Non-Invasive 65 mmHg Reason For Taking VItal Signs Routine oxytocin 22 munit/min unit(s) LR Premix Diluent LR Premix Diluent mL 07/27/2024 5:30 EST Heart Rate Monitored 103 bpm HI Systolic Blood Pressure Non-Invasive 102 mmHg Diastolic Blood Pressure Non-Invasive 60 mmHg Reason For Taking VItal Signs Routine Uterine Contraction Monitoring Method External toco Baby A FHR Baseline: 150 bpm FHR Baseline Variability: Moderate variability FHR Accelerations: Present FHR Deceleration: Absent FHR Interpretation Category: Category One FHR Monitoring Method: External US transducer oxytocin 20 munit/min unit(s) LR Premix Diluent LR Premix Diluent mL 07/27/2024 5:15 EST Heart Rate Monitored 105 bpm HI Systolic Blood Pressure Non-Invasive 97 mmHg Diastolic Blood Pressure Non-Invasive 60 mmHg Reason For Taking VItal Signs Routine oxytocin 18 munit/min unit(s) LR Premix Diluent LR Premix Diluent mL 07/27/2024 5:02 EST Heart Rate Monitored 103 bpm HI Systolic Blood Pressure Non-Invasive 96 mmHg Diastolic Blood Pressure Non-Invasive 61 mmHg Reason For Taking VItal Signs Routine Uterine Contraction Monitoring Method External toco Uterine Contraction Frequency 4-5 Uterine Contraction Duration 60-80 Uterine Contraction Intensity, Ext Palp Moderate Uterine Resting Tone, External Soft Uterine Activity Regular contractions Baby A FHR Baseline: 150 bpm FHR Baseline Variability: Moderate variability FHR Accelerations: Present FHR Deceleration: Absent FHR Interpretation Category: Category One FHR Monitoring Method: External US transducer oxytocin 16 munit/min unit(s) LR Premix Diluent LR Premix Diluent mL 07/27/2024 4:50 EST oxytocin 14 munit/min unit(s) LR Premix Diluent LR Premix Diluent mL 07/27/2024 4:45 EST Temperature Temporal Artery 36.8 DegC Heart Rate Monitored 89 bpm Systolic Blood Pressure Non-Invasive 87 mmHg LOW Diastolic Blood Pressure Non-Invasive 30 mmHg <LLOW Reason For Taking VItal Signs Routine Patient Position, OB Right lateral, Peanut ball 07/27/2024 4:34 EST Heart Rate Monitored 98 bpm Systolic Blood Pressure Non-Invasive 89 mmHg LOW Diastolic Blood Pressure Non-Invasive 42 mmHg <LLOW Reason For Taking VItal Signs Routine Uterine Contraction Monitoring Method External toco Baby A FHR Baseline: 155 bpm FHR Baseline Variability: Moderate variability FHR Accelerations: Present FHR Deceleration: Absent FHR Interpretation Category: Category One FHR Monitoring Method: External US transducer oxytocin 12 munit/min unit(s) LR Premix Diluent LR Premix Diluent mL 07/27/2024 4:15 EST Heart Rate Monitored 98 bpm Systolic Blood Pressure Non-Invasive 85 mmHg LOW Diastolic Blood Pressure Non-Invasive 35 mmHg <LLOW Reason For Taking VItal Signs Routine 07/27/2024 4:04 EST Uterine Contraction Monitoring Method External toco Uterine Contraction Frequency 3-6 Uterine Contraction Duration 60-80 Uterine Contraction Intensity, Ext Palp Moderate Uterine Resting Tone, External Soft Uterine Activity Regular contractions Patient Position, OB Left lateral, Peanut ball Baby A FHR Baseline: 145 bpm FHR Baseline Variability: Moderate variability FHR Accelerations: Present FHR Deceleration: Absent FHR Interpretation Category: Category One FHR Monitoring Method: External US transducer oxytocin 10 munit/min unit(s) LR Premix Diluent LR Premix Diluent mL 07/27/2024 4:03 EST Temperature Temporal Artery 36.4 DegC Heart Rate Monitored 94 bpm Systolic Blood Pressure Non-Invasive 85 mmHg LOW Diastolic Blood Pressure Non-Invasive 31 mmHg <LLOW Reason For Taking VItal Signs Routine Positioning Repositioned right side Activity Status ADL Lights dimmed, Sleeps intermittently Nurse Safety Checks q2hrs Performed 3am-7am Nurse Safety Checks q15min Performed 3am-7am Standard Safety ID band on, Call device within reach, Bed in low position, Wheels locked, Upper/Half-Length side-rails up, Phone within reach, personal items within reach, Visitor at bedside, Safety level maintained Demonstrates Correct Call Light Use Yes 07/27/2024 3:47 EST Recommendation - Action Sepsis 07/27/2024 3:45 EST Heart Rate Monitored 98 bpm Systolic Blood Pressure Non-Invasive 87 mmHg LOW Diastolic Blood Pressure Non-Invasive 31 mmHg <LLOW Reason For Taking VItal Signs Routine oxytocin 8 munit/min unit(s) LR Premix Diluent LR Premix Diluent mL 07/27/2024 3:35 EST Urethral Indwelling/Continuous 16 Fr 07/27/2024 Urinary Catheter Indication: Order not to remove Urinary Catheter Activity: Insert new catheter Urinary Catheter Balloon Inflation: 10 mL Urinary Catheter Secured: Securement device on Urinary Catheter Drainage System: Dependent drainage bag Urinary Catheter Site Condition: No complications Urinary Catheter Care Completed: Yes 07/27/2024 3:30 EST Heart Rate Monitored 123 bpm HI Systolic Blood Pressure Non-Invasive 88 mmHg LOW Diastolic Blood Pressure Non-Invasive 47 mmHg <LLOW Reason For Taking VItal Signs Routine Uterine Contraction Monitoring Method External toco Baby A FHR Baseline: 145 bpm FHR Baseline Variability: Moderate variability FHR Accelerations: Present FHR Deceleration: Absent FHR Interpretation Category: Category One FHR Monitoring Method: External US transducer 07/27/2024 3:15 EST Temperature Temporal Artery 36.4 DegC Heart Rate Monitored 110 bpm HI Systolic Blood Pressure Non-Invasive 95 mmHg Diastolic Blood Pressure Non-Invasive 40 mmHg <LLOW Reason For Taking VItal Signs Routine 07/27/2024 3:06 EST Heart Rate Monitored 107 bpm HI Systolic Blood Pressure Non-Invasive 107 mmHg Diastolic Blood Pressure Non-Invasive 47 mmHg <LLOW Reason For Taking VItal Signs Routine 07/27/2024 3:01 EST Heart Rate Monitored 115 bpm HI Systolic Blood Pressure Non-Invasive 115 mmHg Diastolic Blood Pressure Non-Invasive 54 mmHg LOW Reason For Taking VItal Signs Routine Uterine Contraction Monitoring Method External toco Uterine Contraction Frequency 3-6 Uterine Contraction Duration 60-80 Uterine Contraction Intensity, Ext Palp Moderate Uterine Resting Tone, External Soft Uterine Activity Regular contractions Patient Position, OB Left tilt, Supine Baby A FHR Baseline: 145 bpm FHR Baseline Variability: Moderate variability FHR Accelerations: Present FHR Deceleration: Absent FHR Interpretation Category: Category One FHR Monitoring Method: External US transducer 07/27/2024 2:57 EST Heart Rate Monitored 127 bpm HI Systolic Blood Pressure Non-Invasive 102 mmHg Diastolic Blood Pressure Non-Invasive 54 mmHg LOW Reason For Taking VItal Signs Routine 07/27/2024 2:55 EST Heart Rate Monitored 103 bpm HI Systolic Blood Pressure Non-Invasive 118 mmHg Diastolic Blood Pressure Non-Invasive 43 mmHg <LLOW Reason For Taking VItal Signs Routine 07/27/2024 2:51 EST Heart Rate Monitored 111 bpm HI Systolic Blood Pressure Non-Invasive 94 mmHg Diastolic Blood Pressure Non-Invasive 67 mmHg Reason For Taking VItal Signs Routine 07/27/2024 2:50 EST Heart Rate Monitored 111 bpm HI Systolic Blood Pressure Non-Invasive 94 mmHg Diastolic Blood Pressure Non-Invasive 67 mmHg Reason For Taking VItal Signs Routine 07/27/2024 2:46 EST Heart Rate Monitored 108 bpm HI Systolic Blood Pressure Non-Invasive 139 mmHg Diastolic Blood Pressure Non-Invasive 71 mmHg Reason For Taking VItal Signs Routine 07/27/2024 2:44 EST Heart Rate Monitored 101 bpm HI Systolic Blood Pressure Non-Invasive 131 mmHg Diastolic Blood Pressure Non-Invasive 76 mmHg Reason For Taking VItal Signs Routine Epidural Test Dose Time 07/27/2024 2:42 Epidural Bolus, Anesthesia 07/27/2024 2:45 07/27/2024 2:34 EST Heart Rate Monitored 96 bpm Systolic Blood Pressure Non-Invasive 147 mmHg HI Diastolic Blood Pressure Non-Invasive 76 mmHg Reason For Taking VItal Signs Routine 07/27/2024 2:30 EST Uterine Contraction Monitoring Method External toco Epidural Patient Position Side of bed, leaning forward with support Epidural Placed By CHRIS JOSÉ Baby A FHR Baseline: 145 bpm FHR Baseline Variability: Moderate variability FHR Accelerations: Present FHR Deceleration: Absent FHR Interpretation Category: Category One FHR Monitoring Method: External US transducer 07/27/2024 2:23 EST Notify date/time 07/27/2024 2:23 Provider Notified CHRIS JOSÉ Notification Method Phone Information Communicated Nurse communication Details Communicated patients wants an epidural Notification Outcome Orders not received Person Reporting Result(s) Yanci RNc Results Read Back Yes 07/27/2024 2:05 EST Cervix Dilation 5 cm Cervix Effacement 90 Station -2 Cervical Consistency Soft Cervical Position Anterior Presenting Part Vertex Presenting Part Applied to Cervix No Vaginal Exam Performed By RAHUL PRICE Uterine Contraction Monitoring Method External toco Uterine Contraction Frequency 3-4 Uterine Contraction Duration 60-80 Uterine Contraction Intensity, Ext Palp Moderate Uterine Resting Tone, External Soft Uterine Activity Regular contractions Patient Position, OB Left tilt, Semi-Anderson's Baby A FHR Baseline: 135 bpm FHR Baseline Variability: Moderate variability FHR Accelerations: Present FHR Deceleration: Absent FHR Interpretation Category: Category One FHR Monitoring Method: External US transducer Cleary's Score 11 07/27/2024 1:28 EST Uterine Contraction Monitoring Method External toco Baby A FHR Baseline: 135 bpm FHR Baseline Variability: Moderate variability FHR Accelerations: Present FHR Deceleration: Absent FHR Interpretation Category: Category One FHR Monitoring Method: External US transducer 07/27/2024 1:13 EST famotidine 20 mg mg 07/27/2024 1:07 EST Temperature Temporal Artery 36.3 DegC Heart Rate Monitored 86 bpm Systolic Blood Pressure Non-Invasive 142 mmHg HI Diastolic Blood Pressure Non-Invasive 71 mmHg Reason For Taking VItal Signs Routine Uterine Contraction Monitoring Method External toco Uterine Contraction Frequency 3-4 Uterine Contraction Duration 60-80 Uterine Contraction Intensity, Ext Palp Moderate Uterine Resting Tone, External Soft Uterine Activity Regular contractions Baby A FHR Baseline: 135 bpm FHR Baseline Variability: Moderate variability FHR Accelerations: Present FHR Deceleration: Absent FHR Interpretation Category: Category One FHR Monitoring Method: External US transducer 07/27/2024 0:30 EST Uterine Contraction Monitoring Method External toco Baby A FHR Baseline: 135 bpm FHR Baseline Variability: Moderate variability FHR Accelerations: Present FHR Deceleration: Absent FHR Interpretation Category: Category One FHR Monitoring Method: External US transducer 07/27/2024 0:06 EST Ambulation Ambulation in Room Positioning Repositions self Mobility Assistance Level Independent Activity Status ADL Awake, Lights dimmed, Resting, Up ad manish Nurse Safety Checks q2hrs Performed 11pm-3am Nurse Safety Checks q15min Performed 11pm-3am Standard Safety ID band on, Call device within reach, Bed in low position, Wheels locked, Upper/Half-Length side-rails up, Phone within reach, personal items within reach, Visitor at bedside, Safety level maintained Demonstrates Correct Call Light Use Yes 07/27/2024 0:00 EST Temperature Temporal Artery 36.3 DegC Heart Rate Monitored 102 bpm HI Systolic Blood Pressure Non-Invasive 144 mmHg HI Diastolic Blood Pressure Non-Invasive 82 mmHg Reason For Taking VItal Signs Routine Uterine Contraction Monitoring Method External toco Uterine Contraction Frequency 3-4 Uterine Contraction Duration 60-90 Uterine Contraction Intensity, Ext Palp Moderate Uterine Resting Tone, External Soft Uterine Activity Regular contractions Patient Position, OB Left tilt, Semi-Anderson's Baby A FHR Baseline: 140 bpm FHR Baseline Variability: Moderate variability FHR Accelerations: Present FHR Deceleration: Absent FHR Interpretation Category: Category One FHR Monitoring Method: External US transducer oxytocin 6 munit/min unit(s) LR Premix Diluent LR Premix Diluent mL 07/26/2024 23:30 EST Uterine Contraction Monitoring Method External toco Baby A FHR Baseline: 135 bpm FHR Baseline Variability: Moderate variability FHR Accelerations: Present FHR Deceleration: Absent FHR Interpretation Category: Category One FHR Monitoring Method: External US transducer 07/26/2024 23:05 EST Heart Rate Monitored 96 bpm Systolic Blood Pressure Non-Invasive 133 mmHg Diastolic Blood Pressure Non-Invasive 72 mmHg Reason For Taking VItal Signs Routine Uterine Contraction Monitoring Method External toco Uterine Contraction Frequency 3-6 Uterine Contraction Duration 60-90 Uterine Contraction Intensity, Ext Palp Moderate Uterine Resting Tone, External Soft Uterine Activity Regular contractions Patient Position, OB Birthing ball Baby A FHR Baseline: 135 bpm FHR Baseline Variability: Moderate variability FHR Accelerations: Present FHR Deceleration: Absent FHR Interpretation Category: Category One FHR Monitoring Method: External US transducer oxytocin 4 munit/min unit(s) (Modified) LR Premix Diluent LR Premix Diluent mL (Modified) 07/26/2024 22:30 EST Uterine Contraction Monitoring Method External toco Baby A FHR Baseline: 135 bpm FHR Baseline Variability: Moderate variability FHR Accelerations: Present FHR Deceleration: Absent FHR Interpretation Category: Category One FHR Monitoring Method: External US transducer 07/26/2024 22:15 EST Temperature Temporal Artery 36.6 DegC Heart Rate Monitored 94 bpm Systolic Blood Pressure Non-Invasive 134 mmHg Diastolic Blood Pressure Non-Invasive 81 mmHg Reason For Taking VItal Signs Routine 07/26/2024 22:11 EST Wrist Left 07/26/2024 18 gauge Peripheral IV Activity: Assessed Peripheral IV Dressing Condition: Clean, Dry, Intact Peripheral IV Dressing Activity: Transparent dressing Peripheral IV Line Status/Patency: Flushes easily, Continuous infusion Peripheral IV Site Condition: No complications Peripheral IV Equipment: Extension set, Stopcock, IV Pump, PRN Adaptor Ambulation Ambulation in Room Positioning Repositions self Mobility Assistance Level Independent Activity Status ADL Awake, Lights dimmed, Resting, Up ad manish Nurse Safety Checks q2hrs Performed 7pm-11pm Nurse Safety Checks q15min Performed 7pm-11pm Standard Safety ID band on, Call device within reach, Bed in low position, Wheels locked, Upper/Half-Length side-rails up, Phone within reach, personal items within reach, Visitor at bedside, Safety level maintained Demonstrates Correct Call Light Use Yes oxytocin Begin Bag 2 mL unit(s) Lactated Ringers Injection Begin Bag 1,000 mL mL LR Premix Diluent Begin Bag 500 mL mL 07/26/2024 22:00 EST Uterine Contraction Monitoring Method External toco Uterine Contraction Frequency 4-6 Uterine Contraction Duration 60-90 Uterine Contraction Intensity, Ext Palp Moderate Uterine Resting Tone, External Soft Uterine Activity Regular contractions Patient Position, OB Left tilt, Semi-Anderson's Baby A FHR Baseline: 145 bpm FHR Baseline Variability: Moderate variability FHR Accelerations: Present FHR Deceleration: Absent FHR Interpretation Category: Category One FHR Monitoring Method: External US transducer 07/26/2024 21:30 EST Uterine Contraction Monitoring Method External toco Baby A FHR Baseline: 140 bpm FHR Baseline Variability: Moderate variability FHR Accelerations: Present FHR Deceleration: Absent FHR Interpretation Category: Category One FHR Monitoring Method: External US transducer 07/26/2024 21:10 EST Temperature Temporal Artery 36.4 DegC Heart Rate Monitored 99 bpm Systolic Blood Pressure Non-Invasive 137 mmHg Diastolic Blood Pressure Non-Invasive 74 mmHg Reason For Taking VItal Signs Routine Patient Position, OB Birthing ball 07/26/2024 21:00 EST Uterine Contraction Monitoring Method External toco Uterine Contraction Frequency 3-6 Uterine Contraction Duration 60-90 Uterine Contraction Intensity, Ext Palp Moderate Uterine Resting Tone, External Soft Uterine Activity Regular contractions Baby A FHR Baseline: 145 bpm FHR Baseline Variability: Moderate variability FHR Accelerations: Present FHR Deceleration: Absent FHR Interpretation Category: Category One FHR Monitoring Method: External US transducer 07/26/2024 20:30 EST Uterine Contraction Monitoring Method External toco Baby A FHR Baseline: 140 bpm FHR Baseline Variability: Moderate variability FHR Accelerations: Present FHR Deceleration: Absent FHR Interpretation Category: Category One FHR Monitoring Method: External US transducer 07/26/2024 20:03 EST Temperature Temporal Artery 36.5 DegC Heart Rate Monitored 86 bpm Systolic Blood Pressure Non-Invasive 135 mmHg Diastolic Blood Pressure Non-Invasive 76 mmHg Reason For Taking VItal Signs Routine Uterine Contraction Monitoring Method External toco Uterine Contraction Frequency 3-5 Uterine Contraction Duration 60-90 Uterine Contraction Intensity, Ext Palp Moderate Uterine Resting Tone, External Soft Uterine Activity Regular contractions Patient Position, OB Sitting Baby A FHR Baseline: 140 bpm FHR Baseline Variability: Moderate variability FHR Accelerations: Present FHR Deceleration: Absent FHR Interpretation Category: Category One FHR Monitoring Method: External US transducer Ambulation Ambulation in Room Positioning Repositions self Mobility Assistance Level Independent Activity Status ADL Awake, Lights dimmed, Up ad manish Nurse Safety Checks q2hrs Performed 7pm-11pm Nurse Safety Checks q15min Performed 7pm-11pm Standard Safety ID band on, Call device within reach, Bed in low position, Wheels locked, Upper/Half-Length side-rails up, Phone within reach, personal items within reach, Visitor at bedside, Safety level maintained Demonstrates Correct Call Light Use Yes 07/26/2024 19:41 EST Patient Information Note Randy Price CNM in talking with patient about how to proceed with labor. talkng about pitocin to get contractions more consistant Cervix Dilation 4 cm Cervix Effacement 90 Station -2 Cervical Consistency Soft Cervical Position Anterior Presenting Part Vertex Presenting Part Applied to Cervix No Vaginal Exam Performed By RAHUL PRICE Cleary's Score 10 07/26/2024 19:30 EST Uterine Contraction Monitoring Method External toco Baby A FHR Baseline: 135 bpm FHR Baseline Variability: Moderate variability FHR Accelerations: Present FHR Deceleration: Absent FHR Interpretation Category: Category One FHR Monitoring Method: External US transducer 07/26/2024 19:15 EST Nurse Receiving Report A Kamilah Mcleod RN Date/Time Nurse Received Report 07/26/2024 19:15 07/26/2024 19:00 EST Uterine Contraction Monitoring Method External toco Uterine Contraction Frequency Q 5-6 min Uterine Contraction Duration 60-80 sec Uterine Contraction Intensity, Ext Palp Moderate Uterine Resting Tone, External Soft Uterine Activity Regular contractions Baby A FHR Baseline: 145 bpm FHR Baseline Variability: Moderate variability FHR Accelerations: Present FHR Monitoring Method: External US transducer 07/26/2024 18:30 EST Temperature Temporal Artery 36.2 DegC Heart Rate Monitored 93 bpm Respiratory Rate 18 br/min Systolic Blood Pressure Non-Invasive 128 mmHg Diastolic Blood Pressure Non-Invasive 76 mmHg Reason For Taking VItal Signs Routine Primary Pain Intensity 8 Pain Associated Symptoms None Pain Scale Type 0-10 Pain scale Heart Rhythm Regular Oxygen Therapy Room air Oxygen Saturation 98 % Uterine Contraction Monitoring Method External toco Uterine Contraction Frequency Q 3-5 min Uterine Contraction Duration 90-120 sec Uterine Contraction Intensity, Ext Palp Moderate Uterine Resting Tone, External Soft Uterine Activity Regular contractions Patient Position, OB Sitting Baby A FHR Baseline: 145 bpm FHR Baseline Variability: Moderate variability FHR Accelerations: Present FHR Deceleration: Absent FHR Interpretation Category: Category One FHR Monitoring Method: External US transducer Activity Status ADL Awake, Up ad manish Standard Safety Safety level maintained, Precautions maintained 07/26/2024 18:00 EST Uterine Contraction Monitoring Method External toco Uterine Contraction Frequency Q 3-4 min Uterine Contraction Duration 90-110 sec Uterine Contraction Intensity, Ext Palp Moderate Uterine Resting Tone, External Soft Uterine Activity Regular contractions Patient Position, OB Birthing ball Baby A FHR Baseline: 145 bpm FHR Baseline Variability: Moderate variability FHR Accelerations: Present FHR Deceleration: Absent FHR Interpretation Category: Category One FHR Monitoring Method: External US transducer 07/26/2024 17:30 EST Temperature Oral 36.4 DegC Heart Rate Monitored 104 bpm HI Respiratory Rate 18 br/min Systolic Blood Pressure Non-Invasive 132 mmHg Diastolic Blood Pressure Non-Invasive 69 mmHg Reason For Taking VItal Signs Routine Primary Pain Intensity 8 Pain Associated Symptoms None Pain Scale Type 0-10 Pain scale Heart Rhythm Regular Oxygen Therapy Room air Oxygen Saturation 98 % Uterine Contraction Monitoring Method External toco Uterine Contraction Frequency Q 4-6 min Uterine Contraction Duration 50-70 sec Uterine Contraction Intensity, Ext Palp Moderate Uterine Resting Tone, External Soft Uterine Activity Regular contractions Patient Position, OB Birthing ball Baby A FHR Baseline: 135 bpm FHR Baseline Variability: Moderate variability FHR Accelerations: Present FHR Deceleration: Absent FHR Monitoring Method: External US transducer Activity Status ADL Awake, Up ad manish Standard Safety Safety level maintained, Precautions maintained 07/26/2024 17:00 EST Uterine Contraction Monitoring Method External toco Uterine Contraction Frequency Q 5 min Uterine Contraction Duration 70-90 sec Uterine Contraction Intensity, Ext Palp Moderate Uterine Resting Tone, External Soft Uterine Activity Regular contractions Patient Position, OB Birthing ball Baby A FHR Baseline: 145 bpm FHR Baseline Variability: Moderate variability FHR Accelerations: Present FHR Deceleration: Absent FHR Interpretation Category: Category One FHR Monitoring Method: External US transducer 07/26/2024 16:30 EST Temperature Temporal Artery 36.3 DegC Heart Rate Monitored 107 bpm HI Respiratory Rate 18 br/min Systolic Blood Pressure Non-Invasive 140 mmHg Diastolic Blood Pressure Non-Invasive 70 mmHg Reason For Taking VItal Signs Routine Primary Pain Intensity 8 Pain Associated Symptoms None Pain Scale Type 0-10 Pain scale Heart Rhythm Regular Oxygen Therapy Room air Oxygen Saturation 98 % Uterine Contraction Monitoring Method External toco Uterine Contraction Frequency [place] readjusted Uterine Contraction Intensity, Ext Palp Moderate Uterine Resting Tone, External Soft Patient Position, OB Birthing ball Baby A FHR Baseline: 145 bpm FHR Baseline Variability: Moderate variability FHR Accelerations: Present FHR Monitoring Method: External US transducer Activity Status ADL Awake, Up ad manish Lunch Percent 50 % Standard Safety Safety level maintained, Precautions maintained 07/26/2024 16:00 EST Uterine Contraction Monitoring Method External toco Uterine Contraction Frequency Q 5-6 min Uterine Contraction Duration 60 sec Uterine Contraction Intensity, Ext Palp Moderate Uterine Resting Tone, External Soft Uterine Activity Regular contractions Baby A FHR Baseline: 135 bpm FHR Baseline Variability: Moderate variability FHR Accelerations: Present FHR Deceleration: Absent FHR Interpretation Category: Category One FHR Monitoring Method: External US transducer 07/26/2024 15:30 EST Temperature Temporal Artery 36.3 DegC Heart Rate Monitored 98 bpm Respiratory Rate 18 br/min Systolic Blood Pressure Non-Invasive 141 mmHg HI Diastolic Blood Pressure Non-Invasive 75 mmHg Blood Pressure Method Automatic Blood Pressure Location Right arm Blood Pressure Cuff Size Large Reason For Taking VItal Signs Routine Primary Pain Location Pelvic Primary Pain Laterality Medial Primary Pain Intensity 8 Primary Pain Time Pattern intermittent Primary Pain Onset Gradual Primary Pain Duration Intermittent Primary Pain Quality Pressure Primary Pain Non-Pharma Intervention Relaxation techniques, Repositioning Primary Pain Aggravating Factors None Primary Pain Alleviating Factors Deep breathing, Repositioning Primary Pain Nonverbal Response Facial grimace Pain Associated Symptoms None Pain Scale Type 0-10 Pain scale Heart Rhythm Regular Murmur Auscultated No Dorsalis Pedis Pulse, Left 2+ Normal Dorsalis Pedis Pulse, Right 2+ Normal Pedal edema Bilateral Edema Ratin+ mild/4mm Respirations Unlabored Respiratory Pattern Regular Breath Sounds Auscultated Anterior and posterior All Lobes Breath Sounds Clear, Equal Oxygen Therapy Room air Oxygen Saturation 98 % Abdomen Description Soft Bowel Continence Continent Swallowing Disorder None Bowel Sounds All Quadrants Present Tolerating Oral Intake Yes Urinary Elimination Voiding, no difficulties Bladder Distention Absent Uterine Contraction Monitoring Method External toco Uterine Contraction Frequency Q 2-5 min Uterine Contraction Duration 60 sec Uterine Contraction Intensity, Ext Palp Moderate Uterine Resting Tone, External Soft Uterine Activity Regular contractions Patient Position, OB Sitting Baby A FHR Baseline: 135 bpm FHR Baseline Variability: Moderate variability FHR Accelerations: Present FHR Deceleration: Absent FHR Interpretation Category: Category One FHR Monitoring Method: External US transducer Support Person Present Support Person Involvement Supportive/involved Patient feelings/concerns Discusses care, feelings, concerns Skin Temperature Warm Skin Description [place], Dry Skin Integrity Intact, Pressure points intact Sensory Perception Adiel No impairment Moisture Adiel Rarely moist Activity Adiel Walks occasionally Mobility Adiel No limitations Nutrition Adiel Adequate Friction and Shear Adiel No apparent problem Adiel Score 21 Hospital Acquired Pressure Injury Risk None/minimal risk (score 19-23) Wrist Left 07/26/2024 18 gauge Peripheral IV Activity: Assessed Peripheral IV Dressing Condition: Clean, Dry, Intact Peripheral IV Dressing Activity: Transparent dressing Peripheral IV Line Status/Patency: Flushes easily, 3ml normal saline flush Peripheral IV Site Condition: No complications Peripheral IV Equipment: PRN Adaptor Neurological Symptoms Patient denies Level of Consciousness Alert Strength All Extremities Strong Tone All Extremities Normal Rivera Screen Daily History of Fall in Last 3 Months Rivera No Presence of Secondary Diagnosis Rivera No Use of Ambulatory Aid Rivera None, bedrest, wheelchair, nurse IV/PRN Adapter Fall Risk Rivera Yes Gait Weak or Impaired Fall Risk Rivera Normal, bedrest, immobile Mental Status Fall Risk Rivera Oriented to own ability Rivera Fall Risk Score 20 Violence Risk Confused No Violence Risk Irritable No Violence Risk Boisterous No Violence Risk Verbal Threats No Violence Risk Physical Threats No Violence Risk Attacking Objects No Violence Risk Predictor Score 0 Violence Risk Intervention None Violence Risk Current Interventions None Affect/Behavior Appropriate, Calm, Cooperative Appearance Clean Orientation 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 x 4 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 Significant other Ambulation Ambulation in Room Orientation Assessment Oriented x 4 Positioning Repositions self Mobility Assistance Level Independent Ambulation Patient Effort Good Activity Status ADL Awake, Up ad manish Activity Assistance Independent Hair Care Independent Oral Care Independent Surekha Care Independent Nurse Safety Checks q2hrs Performed 3pm-7pm Standard Safety ID band on, Call device within reach, Bed in low position, Wheels locked, Upper/Half-Length side-rails up, Phone within reach, personal items within reach, Visitor at bedside, Safety level maintained, Non-Slip footwear, Precautions maintained Demonstrates Correct Call Light Use Yes RN Coordination of Care 3pm-7pm Adaptive Feeding Equipment None Appetite Good Eating Difficulties None 07/26/2024 15:15 EST Cervix Dilation 4 cm Cervix Effacement 80 Station -2 Vaginal Exam Performed By RAHUL PRICE 07/26/2024 15:02 EST Monitoring Annotations Provider at bedside--Adonay Price CNM 07/26/2024 15:02 EST Ed- Monitoring Verbalizes/Nonverbally indicates understanding Ed-Discharge instructions Needs further teaching Ed-Complications of Labor/Delivery Verbalizes/Nonverbally indicates understanding 07/26/2024 15:01 EST O-Remains Free From Injury Progressing towards goal Edu-Pain Management Verbalizes/Nonverbally indicates understanding Ed-Plan of Care Verbalizes/Nonverbally indicates understanding Ed-Safety, Fall Verbalizes/Nonverbally indicates understanding Individuals Taught Patient Learning Readiness Willing to learn Barriers to Learning None evident Teaching Method Explanation Preferred Spoken Language Canadian Preferred Written Language Canadian Family/Caregiver Prefer Spoken Language Canadian Family/Caregiver Prefer Written Language Canadian Ed- Monitoring Verbalizes/Nonverbally indicates understanding Ed-Contractions Verbalizes/Nonverbally indicates understanding Ed-Safety Verbalizes/Nonverbally indicates understanding Ed-LD Safety Verbalizes/Nonverbally indicates understanding Ed-Room Orientation Verbalizes/Nonverbally indicates understanding 07/26/2024 15:00 EST Uterine Contraction Monitoring Method External toco Uterine Contraction Frequency Q 4-5 min Uterine Contraction Duration 70-80 sec Uterine Contraction Intensity, Ext Palp Moderate Uterine Resting Tone, External Soft Uterine Activity Regular contractions Baby A FHR Baseline: 135 bpm FHR Baseline Variability: Moderate variability FHR Accelerations: Present FHR Deceleration: Absent FHR Interpretation Category: Category One FHR Monitoring Method: External US transducer 07/26/2024 14:30 EST Temperature Oral 36.7 DegC Heart Rate Monitored 103 bpm HI Respiratory Rate 18 br/min Systolic Blood Pressure Non-Invasive 139 mmHg Diastolic Blood Pressure Non-Invasive 76 mmHg Reason For Taking VItal Signs Routine Primary Pain Intensity 8 Pain Associated Symptoms None Pain Scale Type 0-10 Pain scale Heart Rhythm Regular Oxygen Therapy Room air Oxygen Saturation 98 % Uterine Contraction Monitoring Method External toco Uterine Contraction Frequency Q 4 min Uterine Contraction Duration 60-100 sec Uterine Contraction Intensity, Ext Palp Moderate Uterine Resting Tone, External Soft Uterine Activity Regular contractions Patient Position, OB Right tilt, Semi-Anderson's Baby A FHR Baseline: 145 bpm FHR Baseline Variability: Moderate variability FHR Accelerations: Present FHR Deceleration: Absent FHR Interpretation Category: Category One FHR Monitoring Method: External US transducer Activity Status ADL Awake, Up ad manish Standard Safety Safety level maintained, Precautions maintained 07/26/2024 14:00 EST Uterine Contraction Monitoring Method External toco Uterine Contraction Frequency Q 3-5 min Uterine Contraction Duration 60-90 sec Uterine Contraction Intensity, Ext Palp Moderate Uterine Resting Tone, External Soft Uterine Activity Regular contractions Baby A FHR Baseline: 135 bpm FHR Baseline Variability: Moderate variability FHR Accelerations: Present FHR Deceleration: Absent FHR Interpretation Category: Category One FHR Monitoring Method: External US transducer 07/26/2024 13:56 EST Monitoring Annotations Ambulating in room 07/26/2024 13:30 EST Temperature Temporal Artery 36.3 DegC Heart Rate Monitored 89 bpm Respiratory Rate 18 br/min Systolic Blood Pressure Non-Invasive 145 mmHg HI Diastolic Blood Pressure Non-Invasive 72 mmHg Reason For Taking VItal Signs Routine Primary Pain Intensity 8 Pain Associated Symptoms None Pain Scale Type 0-10 Pain scale Heart Rhythm Regular Oxygen Therapy Room air Oxygen Saturation 98 % Uterine Contraction Monitoring Method External toco Uterine Contraction Frequency Q 3-5 min Uterine Contraction Duration 90-100 sec Uterine Contraction Intensity, Ext Palp Moderate Uterine Resting Tone, External Soft Uterine Activity Regular contractions Baby A FHR Baseline: 135 bpm FHR Baseline Variability: Moderate variability FHR Accelerations: Present FHR Deceleration: Absent FHR Interpretation Category: Category One FHR Monitoring Method: External US transducer Ambulation Ambulation in Room Activity Status ADL Awake, Up ad manish Breakfast Percent 80 % Standard Safety Safety level maintained, Precautions maintained 07/26/2024 13:26 EST Monitoring Annotations Standing at bedside 07/26/2024 13:00 EST Uterine Contraction Monitoring Method External toco Uterine Contraction Frequency Q 3-4 min Uterine Contraction Duration 60-80 sec Uterine Contraction Intensity, Ext Palp Moderate Uterine Resting Tone, External Soft Uterine Activity Regular contractions Baby A FHR Baseline: 135 bpm FHR Baseline Variability: Moderate variability FHR Accelerations: Present FHR Deceleration: Absent FHR Interpretation Category: Category One FHR Monitoring Method: External US transducer 07/26/2024 12:30 EST Temperature Temporal Artery 36.0 DegC Temperature Oral In Error DegC (In Error) Heart Rate Monitored 120 bpm HI Respiratory Rate 18 br/min Systolic Blood Pressure Non-Invasive 130 mmHg Diastolic Blood Pressure Non-Invasive 78 mmHg Reason For Taking VItal Signs Routine Primary Pain Intensity 6 Pain Associated Symptoms None Pain Scale Type 0-10 Pain scale Heart Rhythm Regular Oxygen Therapy Room air Oxygen Saturation 100 % Uterine Contraction Monitoring Method External toco Uterine Contraction Frequency Q 3-4 min Uterine Contraction Duration 70 sec Uterine Contraction Intensity, Ext Palp Moderate Uterine Resting Tone, External Soft Uterine Activity Regular contractions Baby A FHR Baseline: 135 bpm FHR Baseline Variability: Moderate variability FHR Accelerations: Present FHR Deceleration: Absent FHR Interpretation Category: Category One FHR Monitoring Method: External US transducer Wrist Left 07/26/2024 18 gauge Peripheral IV Activity: Assessed Peripheral IV Dressing Condition: Clean, Dry, Intact Peripheral IV Dressing Activity: Reinforced Peripheral IV Site Condition: No complications Peripheral IV Equipment: PRN Adaptor Activity Status ADL Awake, Up ad manish Standard Safety Safety level maintained, Precautions maintained 07/26/2024 12:26 EST Monitoring Annotations Ambulating in room 07/26/2024 12:14 EST Notify date/time 07/26/2024 12:14 Provider Notified RAHUL PRICE Notification Method Phone Information Communicated Nurse communication Details Communicated Updated on pt status, VE, contraction pattern, & FHT tracing. Notification Outcome Orders not received Person Reporting Result(s) Ashkan Nelson Rn Results Read Back Yes 07/26/2024 12:09 EST [facility] Progress Note OB Labor Progress Note (Modified) 07/26/2024 12:00 EST Uterine Contraction Monitoring Method External toco Uterine Contraction Frequency Q 4-5 min Uterine Contraction Duration 90-100 sec Uterine Contraction Intensity, Ext Palp Moderate Uterine Resting Tone, External Soft Uterine Activity Regular contractions Baby A FHR Baseline: 145 bpm FHR Baseline Variability: Moderate variability FHR Accelerations: Present FHR Deceleration: Absent FHR Interpretation Category: Category One FHR Monitoring Method: External US transducer 07/26/2024 11:30 EST Temperature Oral 36.4 DegC Heart Rate Monitored 107 bpm HI Respiratory Rate 18 br/min Systolic Blood Pressure Non-Invasive 130 mmHg Diastolic Blood Pressure Non-Invasive 74 mmHg Reason For Taking VItal Signs Routine Primary Pain Intensity 6 Pain Associated Symptoms None Pain Scale Type 0-10 Pain scale Heart Rhythm Regular Oxygen Therapy Room air Oxygen Saturation 100 % Uterine Contraction Monitoring Method External toco Uterine Contraction Frequency Q 3-5 min Uterine Contraction Duration 60 sec Uterine Contraction Intensity, Ext Palp Moderate Uterine Resting Tone, External Soft Uterine Activity Regular contractions Baby A FHR Baseline: 145 bpm FHR Baseline Variability: Moderate variability FHR Accelerations: Present FHR Deceleration: Absent FHR Interpretation Category: Category One FHR Monitoring Method: External US transducer Ambulation Ambulation in Room Activity Status ADL Awake, Up ad manish Standard Safety Safety level maintained, Precautions maintained 07/26/2024 11:25 EST Monitoring Annotations Ambulating in room 07/26/2024 11:00 EST Uterine Contraction Monitoring Method External toco Uterine Contraction Frequency Q 3-4 min Uterine Contraction Duration 50-80 sec Uterine Contraction Intensity, Ext Palp Moderate Uterine Resting Tone, External Soft Uterine Activity Regular contractions Baby A FHR Baseline: 135 bpm FHR Baseline Variability: Moderate variability FHR Accelerations: Present FHR Deceleration: Absent FHR Interpretation Category: Category One FHR Monitoring Method: External US transducer 07/26/2024 10:30 EST Temperature Oral 36.5 DegC Heart Rate Monitored 92 bpm Respiratory Rate 18 br/min Systolic Blood Pressure Non-Invasive 142 mmHg HI Diastolic Blood Pressure Non-Invasive 83 mmHg Reason For Taking VItal Signs Routine Primary Pain Intensity 7 Pain Associated Symptoms None Pain Scale Type 0-10 Pain scale Heart Rhythm Regular Oxygen Therapy Room air Oxygen Saturation 100 % Cervix Dilation 1 cm Cervix Effacement 80 Station -1 Cervical Consistency Soft Cervical Position Anterior Presenting Part Applied to Cervix Yes Vaginal Exam Performed By ANGELICA Nelson Uterine Contraction Monitoring Method External toco Uterine Contraction Frequency Q 3-4 min Uterine Contraction Duration 60-90 sec Uterine Contraction Intensity, Ext Palp Moderate Uterine Resting Tone, External Soft Uterine Activity Regular contractions Patient Position, OB Semi-Anderson's Baby A FHR Baseline: 135 bpm FHR Baseline Variability: Moderate variability FHR Accelerations: Present FHR Monitoring Method: External US transducer Activity Status ADL Awake Standard Safety Safety level maintained, Precautions maintained 07/26/2024 10:00 EST Uterine Contraction Monitoring Method External toco Uterine Contraction Frequency Q 3-5 min Uterine Contraction Duration 70-90 sec Uterine Contraction Intensity, Ext Palp Moderate Uterine Resting Tone, External Soft Uterine Activity Regular contractions Baby A FHR Baseline: 135 bpm FHR Baseline Variability: Moderate variability FHR Accelerations: Present FHR Deceleration: Absent FHR Interpretation Category: Category One FHR Monitoring Method: External US transducer 07/26/2024 9:30 EST Temperature Oral 36.9 DegC Heart Rate Monitored 93 bpm Systolic Blood Pressure Non-Invasive 132 mmHg Diastolic Blood Pressure Non-Invasive 67 mmHg Blood Pressure Method Automatic Blood Pressure Location Right arm Blood Pressure Cuff Size Large Reason For Taking VItal Signs Routine Primary Pain Intensity 7 Pain Associated Symptoms None Pain Scale Type 0-10 Pain scale Heart Rhythm Regular Oxygen Therapy Room air Uterine Contraction Monitoring Method External toco Uterine Contraction Frequency Q 3-5 min Uterine Contraction Duration 80-100 sec Uterine Contraction Intensity, Ext Palp Moderate Uterine Resting Tone, External Soft Uterine Activity Regular contractions Patient Position, OB Semi-Anderson's Baby A FHR Baseline: 135 bpm FHR Baseline Variability: Moderate variability FHR Accelerations: Present FHR Deceleration: Absent FHR Monitoring Method: External US transducer Activity Status ADL Awake Standard Safety Safety level maintained, Precautions maintained 07/26/2024 9:00 EST Monitoring Annotations Ambulating in room 07/26/2024 9:00 EST Uterine Contraction Monitoring Method External toco Uterine Contraction Frequency Q 4-5 min Uterine Contraction Duration 60 sec Uterine Contraction Intensity, Ext Palp Moderate Uterine Resting Tone, External Soft Uterine Activity Regular contractions Baby A FHR Baseline: 145 bpm FHR Baseline Variability: Moderate variability FHR Accelerations: Present FHR Deceleration: Absent FHR Interpretation Category: Category One FHR Monitoring Method: External US transducer 07/26/2024 8:30 EST Monitoring Annotations Ambulating in room 07/26/2024 8:30 EST Temperature Oral 36.5 DegC Heart Rate Monitored 113 bpm HI Respiratory Rate 18 br/min Systolic Blood Pressure Non-Invasive 144 mmHg HI Diastolic Blood Pressure Non-Invasive 72 mmHg Blood Pressure Method Automatic Blood Pressure Location Right arm Blood Pressure Cuff Size Large Reason For Taking VItal Signs Routine Primary Pain Intensity 7 Pain Associated Symptoms None Pain Scale Type 0-10 Pain scale Heart Rhythm Regular Oxygen Therapy Room air Oxygen Saturation 99 % Uterine Contraction Monitoring Method External toco Uterine Contraction Frequency Q 3 min Uterine Contraction Duration 60-70 sec Uterine Contraction Intensity, Ext Palp Moderate Uterine Resting Tone, External Soft Uterine Activity Regular contractions Baby A FHR Baseline: 145 bpm FHR Baseline Variability: Moderate variability FHR Accelerations: Present FHR Deceleration: Absent FHR Interpretation Category: Category One FHR Monitoring Method: External US transducer Wrist Left 07/26/2024 18 gauge Peripheral IV Activity: Assessed Peripheral IV Dressing Condition: Clean, Dry, Intact Peripheral IV Dressing Activity: Transparent dressing Peripheral IV Line Status/Patency: Flushes easily, 3ml normal saline flush Peripheral IV Site Condition: No complications Peripheral IV Equipment: PRN Adaptor Activity Status ADL Awake, Up ad manish Standard Safety Safety level maintained, Precautions maintained 07/26/2024 8:20 EST famotidine 20 mg mg 07/26/2024 8:02 EST Ed-Plan of Care Verbalizes/Nonverbally indicates understanding Ed-Safety, Fall Verbalizes/Nonverbally indicates understanding Individuals Taught Patient Learning Readiness Willing to learn Barriers to Learning None evident Teaching Method Explanation Preferred Spoken Language Canadian Preferred Written Language Canadian Family/Caregiver Prefer Spoken Language Canadian Family/Caregiver Prefer Written Language Canadian Ed- Monitoring Verbalizes/Nonverbally indicates understanding Ed-Contractions Verbalizes/Nonverbally indicates understanding Ed-Complications of Labor/Delivery Verbalizes/Nonverbally indicates understanding Ed-LD Activity Verbalizes/Nonverbally indicates understanding Ed-LD Nutrition/Fluids Verbalizes/Nonverbally indicates understanding Ed-LD Comfort Measures Verbalizes/Nonverbally indicates understanding Ed-LD Safety Verbalizes/Nonverbally indicates understanding Ed-Room Orientation Verbalizes/Nonverbally indicates understanding 07/26/2024 8:01 EST O-Remains Free From Injury Progressing towards goal Edu-Pain Management Verbalizes/Nonverbally indicates understanding Ed-Safety Verbalizes/Nonverbally indicates understanding Ed-Discharge instructions Needs further teaching 07/26/2024 8:00 EST Uterine Contraction Monitoring Method External toco Uterine Contraction Frequency Q 3-5 min Uterine Contraction Duration 50-90 sec Uterine Contraction Intensity, Ext Palp Moderate Uterine Resting Tone, External Soft Uterine Activity Regular contractions Patient Position, OB Sitting Baby A FHR Baseline: 145 bpm FHR Baseline Variability: Moderate variability FHR Accelerations: Present FHR Deceleration: Absent FHR Interpretation Category: Category One FHR Monitoring Method: External US transducer 07/26/2024 7:45 EST Temperature Oral 36.4 DegC Heart Rate Monitored 89 bpm Respiratory Rate 18 br/min Systolic Blood Pressure Non-Invasive 141 mmHg HI Diastolic Blood Pressure Non-Invasive 68 mmHg Blood Pressure Method Automatic Blood Pressure Location Right arm Blood Pressure Cuff Size Large Reason For Taking VItal Signs Routine Primary Pain Location Pelvic Primary Pain Laterality Medial Primary Pain Intensity 7 Primary Pain Time Pattern intermittent Primary Pain Onset Gradual Primary Pain Duration Intermittent Primary Pain Quality Pressure Primary Pain Non-Pharma Intervention Relaxation techniques, Repositioning Primary Pain Aggravating Factors None Primary Pain Alleviating Factors Deep breathing, Repositioning Primary Pain Nonverbal Response Facial grimace Pain Associated Symptoms None Pain Scale Type 0-10 Pain scale Heart Rhythm Regular Murmur Auscultated No Dorsalis Pedis Pulse, Left 2+ Normal Dorsalis Pedis Pulse, Right 2+ Normal Pedal edema Bilateral Edema Ratin+ mild/4mm Respirations Unlabored Respiratory Pattern Regular Breath Sounds Auscultated Anterior and posterior All Lobes Breath Sounds Clear, Equal Oxygen Therapy Room air Oxygen Saturation 99 % Abdomen Description Soft Bowel Continence Continent Swallowing Disorder None Bowel Sounds All Quadrants Present Tolerating Oral Intake Yes Urinary Elimination Voiding, no difficulties Bladder Distention Absent Uterine Contraction Monitoring Method External toco Uterine Contraction Frequency [place] readjusted Uterine Contraction Intensity, Ext Palp Moderate Uterine Resting Tone, External Soft Patient Position, OB Sitting Baby A FHR Baseline: 145 bpm FHR Baseline Variability: Moderate variability FHR Accelerations: Present FHR Monitoring Method: External US transducer Labor Onset, Date, Time: 07/25/2024 21:15 Patient Coping In Error (In Error) Support Person Present Support Person Involvement Supportive/involved Patient feelings/concerns Discusses care, feelings, concerns Skin Temperature Warm Skin Description [place], Dry Skin Integrity Intact, Pressure points intact Sensory Perception Adiel No impairment Moisture Adiel Rarely moist Activity Adiel Walks occasionally Mobility Adiel No limitations Nutrition Adiel Adequate Friction and Shear Adiel No apparent problem Adiel Score 21 Hospital Acquired Pressure Injury Risk None/minimal risk (score 19-23) Wrist Left 07/26/2024 18 gauge Peripheral IV Activity: Assessed Peripheral IV Dressing Condition: Clean, Dry, Intact Peripheral IV Dressing Activity: Transparent dressing Peripheral IV Line Status/Patency: Flushes easily, 3ml normal saline flush Peripheral IV Site Condition: No complications Peripheral IV Equipment: PRN Adaptor Neurological Symptoms Patient denies Level of Consciousness Alert Strength All Extremities Strong Tone All Extremities Normal Rivera Screen Daily History of Fall in Last 3 Months Rivera No Presence of Secondary Diagnosis Rivera No Use of Ambulatory Aid Rivera None, bedrest, wheelchair, nurse IV/PRN Adapter Fall Risk Rivera Yes Gait Weak or Impaired Fall Risk Rivera Normal, bedrest, immobile Mental Status Fall Risk Rivera Oriented to own ability Rivera Fall Risk Score 20 Violence Risk Confused No Violence Risk Irritable No Violence Risk Boisterous No Violence Risk Verbal Threats No Violence Risk Physical Threats No Violence Risk Attacking Objects No Violence Risk Predictor Score 0 Violence Risk Intervention None Violence Risk Current Interventions None Affect/Behavior Appropriate, Calm, Cooperative Appearance Clean Orientation Oriented x 4 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 Significant other Ambulation Ambulation in Room Orientation Assessment Oriented x 4 Date/Time Transfer Accepted 07/26/2024 7:45 Nurse Receiving Report Ashkan Nelson Rn Date/Time Nurse Received Report 07/26/2024 7:45 Positioning Repositions self Mobility Assistance Level Independent Ambulation Patient Effort Good Activity Status ADL Awake, Up ad manish Activity Assistance Independent Hair Care Independent Oral Care Independent Surekha Care Independent Nurse Safety Checks q2hrs Performed Other: 7:45 a-7 pm Standard Safety ID band on, Call device within reach, Bed in low position, Wheels locked, Upper/Half-Length side-rails up, Phone within reach, personal items within reach, Visitor at bedside, Safety level maintained, Non-Slip footwear, Precautions maintained Demonstrates Correct Call Light Use Yes RN Coordination of Care Other: 7:45 am-7pm Adaptive Feeding Equipment None Appetite Fair Eating Difficulties None 07/26/2024 6:30 EST Temperature Oral 36.8 DegC 07/26/2024 6:00 EST Uterine Contraction Monitoring Method External toco Uterine Contraction Frequency 2-5 Uterine Contraction Duration 30-70 Uterine Contraction Intensity, Ext Palp Mild Uterine Resting Tone, External Soft Uterine Activity Regular contractions Baby A FHR Baseline: 135 bpm FHR Baseline Variability: Moderate variability FHR Accelerations: Present FHR Deceleration: Absent FHR Interpretation Category: Category One FHR Monitoring Method: External US transducer 07/26/2024 5:18 EST [place] History and Physical OB Admission H&P 07/26/2024 5:17 EST OBHx 1 07/26/2024 5:16 EST Monitoring Annotations pt on birthing ball and leaning forward on bed; monitors readjusted; coached breathing and relaxation through contractions; fob taught counterpressure and pt reporting pain relief; lights dimmed; all care explained 07/26/2024 5:15 EST Temperature Oral 36.4 DegC 07/26/2024 5:09 EST Monitoring Annotations monitors readjusted 07/26/2024 5:07 EST Monitoring Annotations plan provided by pt and reviewed by rn and cnm 07/26/2024 5:00 EST Uterine Contraction Monitoring Method External toco Uterine Contraction Frequency 2-4 Uterine Contraction Duration 30-60 Uterine Contraction Intensity, Ext Palp Mild Uterine Resting Tone, External Soft Uterine Activity Regular contractions Baby A FHR Baseline: 135 bpm FHR Baseline Variability: Moderate variability FHR Accelerations: Present FHR Deceleration: Absent FHR Interpretation Category: Category One FHR Monitoring Method: External US transducer 07/26/2024 4:48 EST Monitoring Annotations Randy Price CNM at the bedside. 07/26/2024 4:33 EST WBC 17.7 10^3/mcL HI RBC 3.69 10^6/mcL LOW Hgb 10.9 G/dL LOW Hct 31.8 % LOW MCV 86.2 fL MCH 29.6 pg MCHC 34.4 G/dL RDW 14.5 % Platelet 210 10^3/mcL MPV 9.0 fL Neutrophil % 80.7 % HI Lymphocyte % 11.6 % LOW Monocyte % 7.0 % Eosinophil % 0.2 % Basophil % 0.5 % Neutrophil, Absolute 14.3 10^3/mcL HI Lymphocyte, Absolute 2.0 10^3/mcL Monocyte, Absolute 1.2 10^3/mcL Eosinophil, Absolute 0.0 10^3/mcL Basophil, Absolute 0.1 10^3/mcL ABO/Rh Interp O NEG ABSC Interp (Gel) Negative ABSC 07/26/2024 4:30 EST Uterine Contraction Monitoring Method External toco Uterine Contraction Frequency 1-3 Uterine Contraction Duration 30-50 Uterine Contraction Intensity, Ext Palp Mild Uterine Resting Tone, External Soft Uterine Activity Regular contractions Patient Position, OB Right tilt Baby A FHR Baseline: 135 bpm FHR Baseline Variability: Moderate variability FHR Accelerations: Present FHR Deceleration: Absent FHR Interpretation Category: Category One FHR Monitoring Method: External US transducer Wrist Left 07/26/2024 18 gauge Peripheral IV Activity: Insert new site Peripheral IV Dressing Condition: Clean, Dry, Intact Peripheral IV Dressing Activity: Applied Peripheral IV Line Status/Patency: Flushes easily Peripheral IV Equipment: PRN Adaptor Peripheral IV Number of Attempts: 4 07/26/2024 3:50 EST Cervix Dilation 1 cm Cervix Effacement 80 Station -1 Cervical Consistency Soft Cervical Position Mid Presenting Part Vertex Vaginal Exam Performed By Yesika Warner RN Cleary's Score 9 Station Calculation -1 Baby A Membrane Status: S.R.O.M. ROM Date, Time: 07/25/2024 21:15 Amniotic Fluid Color/Descrip: Clear 07/26/2024 3:48 EST Blood Type, External O negative Rubella, External Immune HIV Antibodies, External Negative Group B Strep, External Negative Group B Strep Date Performed 06/25/2024 Hepatitis B, External Negative Hepatitis B Date Performed 01/23/2024 RPR, External Nonreactive Designated Person #1 We May Share [facility] Candido [phone] Designated Person #1 Relationship Spouse Privacy Restrictions Requested None Height 163.5 cm Admission Weight 119 kg [place] Body Weight 55.55 kg BSA Admission 2.2 Body Mass Index 44.52 kg/m2 Expected Outcome Live Patient Type Inpatient Thrombosis Risk Factors (1) or post- less than 1 month Thrombosis Risk Factor Add'l Assessment NA Thrombosis Risk Score 1 Status Yes PPH Risk Low risk for hemorrhage PPH Low Risk Factors [place] Infant Feeding Breast milk Anesthesia/Pain Medication During Labor None planned Circumcision No Baby For Adoption No Surrogate No Tubal Sterilization Planned No Discharge [place] Physician DFP Written Plan No WIC Participant No Safe Sleep Environment for Baby Yes Safe Sleep Environment Outside Home Yes Maternal Transport No Thoughts of Harming Others - History No Thoughts of Suicide - History No Coping Effective Concerns About Fx Members at Home No Emotional Abuse History Denies Physical Abuse History Denies Sexual Abuse Denies Cultural/Spiritual Practices none Hospital Clergy to Visit Declines Visit From Spiritual Care Staff Financial Concerns Re: Hospital/Disch No Living Situation Lives with spouse Current Home Treatments None Professional Skilled Services None Special Services and Community Resources None Advanced Directives No - refuses information Infectious Disease Symptoms Patient states no symptoms Infectious Disease Recent Exposure No Alcohol and Drug Use No Employee of Institutional Living No Health Care Employee No History of Exposure to TB No History of Positive Chest X-Ray for TB No History of Positive TB Skin Test No Homeless No Known Immunosuppression No Recent Immigrant No Resident of Institutional Living No Bloody Sputum No Fatigue No Fever No Loss of Appetite No Night Sweats No Persistent Cough > 3 Weeks No Weight Loss No Preferred Spoken Language Canadian Preferred Written Language Canadian Teaching Evaluation Verbalizes/Nonverbally indicates understanding Safety Brochure Information Reviewed Unable to complete Jaron Recio Video Viewed No Chief Complaint Labor Emergency Contact Number Candido [phone] History of Malignant Hyperthermia No Mode of Transfer Private vehicle Belongings At Bedside Luggage Discharge To, Anticipated Home independently Other Anticipated Needs After Discharge No Valid [place] N/A Anticoagulants Taken In Past 6 Wks. No Prev Test Positive/Diagnosis w/COVID-19 No Current Quarantine/Isolated any Illness No Any Contact with Sick Animals/Birds No Traveled Anywhere in Last 30 Days No Influenza Vaccine Need No prior receipt of vaccine Influenza Risk Factors age 6 months and older Influenza Vaccine Contraindications None Forego Influenza Vaccination Patient/Caregiver refused vaccine No Anesthesia/Transfusions Prior anesthesia Admission Note-Nursing Patient History OB 07/26/2024 3:39 EST Temperature Temporal Artery 36 DegC Heart Rate Monitored 87 bpm Respiratory Rate 18 br/min Systolic Blood Pressure Non-Invasive 143 mmHg HI Diastolic Blood Pressure Non-Invasive 72 mmHg Primary Pain Intensity 9 Pain Scale Type 0-10 Pain scale Murmur Auscultated No Dorsalis Pedis Pulse, Left 2+ Normal Dorsalis Pedis Pulse, Right 2+ Normal Radial Pulse, Left 2+ Normal Radial Pulse, Right 2+ Normal Respirations Unlabored Respiratory Pattern Regular All Lobes Breath Sounds Clear Cough None Abdomen Description Soft, Rounded Bowel Sounds All Quadrants Present Urinary Elimination Voiding, no difficulties Baby A FHR Monitoring Method: monitoring explained, External US transducer Heart Tone: 140 Skin Temperature Warm Skin Description [place], Normal for ethnicity, Dry Skin Integrity Intact Sensory Perception Adiel No impairment Moisture Adiel Occasionally moist Activity Adiel Walks frequently Mobility Adiel No limitations Nutrition Adiel Adequate Friction and Shear Adiel No apparent problem Adiel Score 21 Hospital Acquired Pressure Injury Risk None/minimal risk (score 19-23) Neurological Symptoms Patient denies Strength All Extremities Strong Tone All Extremities Normal Rivera Screen Daily History of Fall in Last 3 Months Rivera No Presence of Secondary Diagnosis Rivera No Use of Ambulatory Aid Rivera None, bedrest, wheelchair, nurse IV/PRN Adapter Fall Risk Rivera Yes Gait Weak or Impaired Fall Risk Rivera Normal, bedrest, immobile Mental Status Fall Risk Rivera Oriented to own ability Rivera Fall Risk Score 20 Violence Risk Confused No Violence Risk Irritable No Violence Risk Boisterous No Violence Risk Verbal Threats No Violence Risk Physical Threats No Violence Risk Attacking Objects No Violence Risk Predictor Score 0 Violence Risk Intervention None Violence Risk Current Interventions None Ambulation Ambulation in Room Positioning Repositions self Ambulation Patient Effort Good Activity Status ADL Awake, Up ad manish Nurse Safety Checks q2hrs Performed 7pm-7am Standard Safety ID band on, Call device within reach, Bed in low position, Wheels locked, Upper/Half-Length side-rails up, Phone within reach, personal items within reach, Visitor at bedside, Safety level maintained, Precautions maintained Demonstrates Correct Call Light Use Yes Appetite Fair . Assessment and Plan [place] [employer] (ASA) physical status classification: Class II. Anesthetic Preoperative Plan Anesthetic technique: Epidural. Postoperative pain management: Per surgeon. Informed consent: signed by patient. Digitally Signed by CHRIS JOSÉ on 07/27/2024 11:17 AM [facility] 07-27-2024 Note Labor Details Baby A FHR Baseline:135 bpm FHR Baseline Variability:Moderate variability Membranes Membrane Status:S.R.O.M. ROM Date, Time:07/25/2024 21:15 EST Amniotic Fluid Color/Descrip:Clear FHR Accelerations:Present Uterine Uterine Contraction FrequencyQ 4-5 min Uterine Contraction Monitoring MethodExternal toco Cervical Physical Exam Vitals & Measurements T: 36.7 C (Oral) TMIN: 36.0 C (Temporal Artery) TMAX: 36.9 C (Oral) HR: 103 (Monitored) RR: 18 BP: 139/76 SpO2: 98% HT: 163.5 cm WT: 119 kg BMI: 44.52 Called by RN for status update. Pt tolerating labor well breathing with contractions and ambulating in room and alternating between bed and birthing ball with supportive at BS VE at 1030 by RN unchanged [place] at present 2-4/mod/soft rest Cat one tracing Assessment/Plan 40 weeks gestation of continue close obs of efm Continue close obs maternal VS/temp cont exp management pain intervention when/if desires Reveal in 4 hours or prn Orders: carboprost(Hemabate), 250 mcg= 1 mL, Intramuscular, Once, PRN citric acid-sodium citrate(Bicitra), 30 mL, Oral, AsDirected, PRN famotidine(Pepcid), 20 mg= 2 mL, IV Push, BID, PRN Lactated Ringers Infusion(LR 500 mL Bolus), 500 mL, IV Bolus, AsDirected, PRN Lactated Ringers Infusion 1,000 mL(LR 1,000 mL), 1000 mL, Intravenous lidocaine(Xylocaine HCl 1% injectable solution), 100 mg= 10 mL, Perineum, AsDirected, PRN methylergonovine(Methergine), 0.2 mg= 1 mL, Intramuscular, Once, PRN miSOPROStol(Cytotec), 1000 mcg= 5 tab(s), Rectal, Once, PRN ondansetron(Zofran), 4 mg= 2 mL, IV Push, q4h, PRN oxytocin(Pitocin), 20 unit(s)= 2 mL, Intramuscular, Once, PRN oxytocin 20 unit(s) + LR Premix Diluent 500 mL(Oxytocin for IV (mL/hr) 20 unit(s) + LR Premix Diluent 500 mL), Start: 07/26/24 3:46:00 EST, Rate: 500 mL/hr, 07/26/24 3:46:00 EST terbutaline(Brethine), 0.25 mg= 0.25 mL, Subcutaneous, AsDirected, PRN tranexamic acid(tranexamic acid 1 g / 100 mL 0.7% NaCl PMX), 1 gram(s)= 100 mL, IV Piggyback, AsDirected, PRN Admit to Inpatient, 07/26/24 4:07:00 EST, Level of Care: Obstetrics, Reason for Admission: See History & Physical, Expected Length of Stay: No More Than 96 Hours, Constant Order Ambulate, 07/26/24 3:46:00 EST, PRN Order, as tolerated Code Status, 07/26/24 4:07:00 EST, Full Code, Constant Order Consult to Anesthesia, 07/26/24 3:46:00 EST, not specified, As needed for epidural insertion or for delivery Diet Order, 07/26/24 3:46:00 EST, Start Meal: Next meal, Clear Liquid Diet, Constant Order Epidural Anesthesia, 07/26/24 3:46:00 EST, PRN order, With patient consent, when patient requests Monitoring, 07/26/24 3:46:00 EST, Continuous Intake and Output, 07/26/24 3:46:00 EST, q8hr, while IV running IV Catheter Insertion/Care, 07/26/24 3:46:00 EST, IV Care: q4h, Rotate when clinically indicated & q7day drsg change Oxygen Administration (LDRP)(Oxygen Administration (OB)), 07/26/24 3:46:00 EST, Non-Rebreather Mask, 10 LPM, PRN Order, Adjust flow rate to maintain proper inflation Prn Adapter, 07/26/24 3:46:00 EST, Once Rapid Plasma Reagin Test(RPR), 07/26/24 3:46:00 EST, URGENT (collect within 2 hrs), Blood, Once, Nurse Collect, Stop date 07/26/24 3:47:00 EST Straight Cath, 07/26/24 3:46:00 EST, PRN Order Urinary Catheter Insertion/Care, 07/26/24 3:46:00 EST, Do Not Remove Urinary Catheter, Undergoing/Undergone Pelvic procedure, to gravity drainage, Cath Care: Daily, Following epidural insertion, PRN Order Vital Signs, 07/26/24 3:46:00 EST, 07/26/24 3:46:00 EST, On admission, then BP, P, R q 1 hour while in labor. Temp q 2 hours until rupture of membranes then q 1 hour Vital Signs Call Parameters, 07/26/24 3:46:00 EST, Temp Range: > 38C, Pulse Range: > 120 BPM, Resp Rate Range: <12 or >24, BP Range SBP <100 or >160; DBP <50 or >105, 02 Sat Range: < 95%, Constant Order, Call HO Medications Inpatient Bicitra, 30 mL, Oral, AsDirected, PRN Brethine, 0.25 mg= 0.25 mL, Subcutaneous, AsDirected, PRN Cytotec, 1000 mcg= 5 tab(s), Rectal, Once, PRN Hemabate, 250 mcg= 1 mL, Intramuscular, Once, PRN LR 1,000 mL, 1000 mL, Intravenous LR 500 mL Bolus, 500 mL, IV Bolus, AsDirected, PRN Methergine, 0.2 mg= 1 mL, Intramuscular, Once, PRN Oxytocin for IV (mL/hr) 20 unit(s) + LR Premix Diluent 500 mL Pepcid, 20 mg= 2 mL, IV Push, BID, PRN Pitocin, 20 unit(s)= 2 mL, Intramuscular, Once, PRN tranexamic acid 1 g / 100 mL 0.7% NaCl PMX, 1 gram(s)= 100 mL, IV Piggyback, AsDirected, PRN Xylocaine HCl 1% injectable solution, 100 mg= 10 mL, Perineum, AsDirected, PRN Zofran, 4 mg= 2 mL, IV Push, q4h, PRN Home calcium carbonate-magnesium carbonate 200 mg-400 mg oral tablet, 1 tab(s), Oral, TID ferrous sulfate 325 mg (65 mg elemental iron) oral tablet, 325 mg= 1 tab(s), Oral, BID AD oral tablet, 1 tab(s), Oral, Daily Vitamin D with Minerals oral tablet, 1 tab(s), Oral, qDay Digitally Signed by RAHUL PRICE on 07/26/2024 03:31 PM [facility] 07-27-2024 Note Labor Details Baby A FHR Baseline:135 bpm FHR Baseline Variability:Moderate variability Membranes Membrane Status:S.R.O.M. ROM Date, Time:07/25/2024 21:15 EST Amniotic Fluid Color/Descrip:Clear FHR Accelerations:Present Uterine Uterine Contraction FrequencyQ 4-5 min Uterine Contraction Monitoring MethodExternal toco Cervical Physical Exam Vitals & Measurements T: 36.7 C (Oral) TMIN: 36.0 C (Temporal Artery) TMAX: 36.9 C (Oral) HR: 103 (Monitored) RR: 18 BP: 139/76 SpO2: 98% HT: 163.5 cm WT: 119 kg BMI: 44.52 Called by RN for status update. Pt tolerating labor well breathing with contractions and ambulating in room and alternating between bed and birthing ball with supportive at BS VE at 1030 by RN unchanged [place] at present 2-4/mod/soft rest Cat one tracing Assessment/Plan 40 weeks gestation of continue close obs of efm Continue close obs maternal VS/temp cont exp management pain intervention when/if desires Reveal in 4 hours or prn Orders: carboprost(Hemabate), 250 mcg= 1 mL, Intramuscular, Once, PRN citric acid-sodium citrate(Bicitra), 30 mL, Oral, AsDirected, PRN famotidine(Pepcid), 20 mg= 2 mL, IV Push, BID, PRN Lactated Ringers Infusion(LR 500 mL Bolus), 500 mL, IV Bolus, AsDirected, PRN Lactated Ringers Infusion 1,000 mL(LR 1,000 mL), 1000 mL, Intravenous lidocaine(Xylocaine HCl 1% injectable solution), 100 mg= 10 mL, Perineum, AsDirected, PRN methylergonovine(Methergine), 0.2 mg= 1 mL, Intramuscular, Once, PRN miSOPROStol(Cytotec), 1000 mcg= 5 tab(s), Rectal, Once, PRN ondansetron(Zofran), 4 mg= 2 mL, IV Push, q4h, PRN oxytocin(Pitocin), 20 unit(s)= 2 mL, Intramuscular, Once, PRN oxytocin 20 unit(s) + LR Premix Diluent 500 mL(Oxytocin for IV (mL/hr) 20 unit(s) + LR Premix Diluent 500 mL), Start: 07/26/24 3:46:00 EST, Rate: 500 mL/hr, 07/26/24 3:46:00 EST terbutaline(Brethine), 0.25 mg= 0.25 mL, Subcutaneous, AsDirected, PRN tranexamic acid(tranexamic acid 1 g / 100 mL 0.7% NaCl PMX), 1 gram(s)= 100 mL, IV Piggyback, AsDirected, PRN Admit to Inpatient, 07/26/24 4:07:00 EST, Level of Care: Obstetrics, Reason for Admission: See History & Physical, Expected Length of Stay: No More Than 96 Hours, Constant Order Ambulate, 07/26/24 3:46:00 EST, PRN Order, as tolerated Code Status, 07/26/24 4:07:00 EST, Full Code, Constant Order Consult to Anesthesia, 07/26/24 3:46:00 EST, not specified, As needed for epidural insertion or for delivery Diet Order, 07/26/24 3:46:00 EST, Start Meal: Next meal, Clear Liquid Diet, Constant Order Epidural Anesthesia, 07/26/24 3:46:00 EST, PRN order, With patient consent, when patient requests Monitoring, 07/26/24 3:46:00 EST, Continuous Intake and Output, 07/26/24 3:46:00 EST, q8hr, while IV running IV Catheter Insertion/Care, 07/26/24 3:46:00 EST, IV Care: q4h, Rotate when clinically indicated & q7day drsg change Oxygen Administration (LDRP)(Oxygen Administration (OB)), 07/26/24 3:46:00 EST, Non-Rebreather Mask, 10 LPM, PRN Order, Adjust flow rate to maintain proper inflation Prn Adapter, 07/26/24 3:46:00 EST, Once Rapid Plasma Reagin Test(RPR), 07/26/24 3:46:00 EST, URGENT (collect within 2 hrs), Blood, Once, Nurse Collect, Stop date 07/26/24 3:47:00 EST Straight Cath, 07/26/24 3:46:00 EST, PRN Order Urinary Catheter Insertion/Care, 07/26/24 3:46:00 EST, Do Not Remove Urinary Catheter, Undergoing/Undergone Pelvic procedure, to gravity drainage, Cath Care: Daily, Following epidural insertion, PRN Order Vital Signs, 07/26/24 3:46:00 EST, 07/26/24 3:46:00 EST, On admission, then BP, P, R q 1 hour while in labor. Temp q 2 hours until rupture of membranes then q 1 hour Vital Signs Call Parameters, 07/26/24 3:46:00 EST, Temp Range: > 38C, Pulse Range: > 120 BPM, Resp Rate Range: <12 or >24, BP Range SBP <100 or >160; DBP <50 or >105, 02 Sat Range: < 95%, Constant Order, Call HO Medications Inpatient Bicitra, 30 mL, Oral, AsDirected, PRN Brethine, 0.25 mg= 0.25 mL, Subcutaneous, AsDirected, PRN Cytotec, 1000 mcg= 5 tab(s), Rectal, Once, PRN Hemabate, 250 mcg= 1 mL, Intramuscular, Once, PRN LR 1,000 mL, 1000 mL, Intravenous LR 500 mL Bolus, 500 mL, IV Bolus, AsDirected, PRN Methergine, 0.2 mg= 1 mL, Intramuscular, Once, PRN Oxytocin for IV (mL/hr) 20 unit(s) + LR Premix Diluent 500 mL Pepcid, 20 mg= 2 mL, IV Push, BID, PRN Pitocin, 20 unit(s)= 2 mL, Intramuscular, Once, PRN tranexamic acid 1 g / 100 mL 0.7% NaCl PMX, 1 gram(s)= 100 mL, IV Piggyback, AsDirected, PRN Xylocaine HCl 1% injectable solution, 100 mg= 10 mL, Perineum, AsDirected, PRN Zofran, 4 mg= 2 mL, IV Push, q4h, PRN Home calcium carbonate-magnesium carbonate 200 mg-400 mg oral tablet, 1 tab(s), Oral, TID ferrous sulfate 325 mg (65 mg elemental iron) oral tablet, 325 mg= 1 tab(s), Oral, BID AD oral tablet, 1 tab(s), Oral, Daily Vitamin D with Minerals oral tablet, 1 tab(s), Oral, qDay Digitally Signed by RAHUL PRICE on 07/26/2024 03:31 PM [facility] 07-26-2024 Note Labor Details Baby A FHR Baseline:135 bpm FHR Baseline Variability:Moderate variability Membranes Membrane Status:S.R.O.M. ROM Date, Time:07/25/2024 21:15 EST Amniotic Fluid Color/Descrip:Clear FHR Accelerations:Present Uterine Uterine Contraction FrequencyQ 4-5 min Uterine Contraction Monitoring MethodExternal toco Cervical Physical Exam Vitals & Measurements T: 36.7 C (Oral) TMIN: 36.0 C (Temporal Artery) TMAX: 36.9 C (Oral) HR: 103 (Monitored) RR: 18 BP: 139/76 SpO2: 98% HT: 163.5 cm WT: 119 kg BMI: 44.52 Called by RN for status update. Pt tolerating labor well breathing with contractions and ambulating in room and alternating between bed and birthing ball with supportive at BS VE at 1030 by RN unchanged [place] at present 2-4/mod/soft rest Cat one tracing Assessment/Plan 40 weeks gestation of continue close obs of efm Continue close obs maternal VS/temp cont exp management pain intervention when/if desires Reveal in 4 hours or prn Orders: carboprost(Hemabate), 250 mcg= 1 mL, Intramuscular, Once, PRN citric acid-sodium citrate(Bicitra), 30 mL, Oral, AsDirected, PRN famotidine(Pepcid), 20 mg= 2 mL, IV Push, BID, PRN Lactated Ringers Infusion(LR 500 mL Bolus), 500 mL, IV Bolus, AsDirected, PRN Lactated Ringers Infusion 1,000 mL(LR 1,000 mL), 1000 mL, Intravenous lidocaine(Xylocaine HCl 1% injectable solution), 100 mg= 10 mL, Perineum, AsDirected, PRN methylergonovine(Methergine), 0.2 mg= 1 mL, Intramuscular, Once, PRN miSOPROStol(Cytotec), 1000 mcg= 5 tab(s), Rectal, Once, PRN ondansetron(Zofran), 4 mg= 2 mL, IV Push, q4h, PRN oxytocin(Pitocin), 20 unit(s)= 2 mL, Intramuscular, Once, PRN oxytocin 20 unit(s) + LR Premix Diluent 500 mL(Oxytocin for IV (mL/hr) 20 unit(s) + LR Premix Diluent 500 mL), Start: 07/26/24 3:46:00 EST, Rate: 500 mL/hr, 07/26/24 3:46:00 EST terbutaline(Brethine), 0.25 mg= 0.25 mL, Subcutaneous, AsDirected, PRN tranexamic acid(tranexamic acid 1 g / 100 mL 0.7% NaCl PMX), 1 gram(s)= 100 mL, IV Piggyback, AsDirected, PRN Admit to Inpatient, 07/26/24 4:07:00 EST, Level of Care: Obstetrics, Reason for Admission: See History & Physical, Expected Length of Stay: No More Than 96 Hours, Constant Order Ambulate, 07/26/24 3:46:00 EST, PRN Order, as tolerated Code Status, 07/26/24 4:07:00 EST, Full Code, Constant Order Consult to Anesthesia, 07/26/24 3:46:00 EST, not specified, As needed for epidural insertion or for delivery Diet Order, 07/26/24 3:46:00 EST, Start Meal: Next meal, Clear Liquid Diet, Constant Order Epidural Anesthesia, 07/26/24 3:46:00 EST, PRN order, With patient consent, when patient requests Monitoring, 07/26/24 3:46:00 EST, Continuous Intake and Output, 07/26/24 3:46:00 EST, q8hr, while IV running IV Catheter Insertion/Care, 07/26/24 3:46:00 EST, IV Care: q4h, Rotate when clinically indicated & q7day drsg change Oxygen Administration (LDRP)(Oxygen Administration (OB)), 07/26/24 3:46:00 EST, Non-Rebreather Mask, 10 LPM, PRN Order, Adjust flow rate to maintain proper inflation Prn Adapter, 07/26/24 3:46:00 EST, Once Rapid Plasma Reagin Test(RPR), 07/26/24 3:46:00 EST, URGENT (collect within 2 hrs), Blood, Once, Nurse Collect, Stop date 07/26/24 3:47:00 EST Straight Cath, 07/26/24 3:46:00 EST, PRN Order Urinary Catheter Insertion/Care, 07/26/24 3:46:00 EST, Do Not Remove Urinary Catheter, Undergoing/Undergone Pelvic procedure, to gravity drainage, Cath Care: Daily, Following epidural insertion, PRN Order Vital Signs, 07/26/24 3:46:00 EST, 07/26/24 3:46:00 EST, On admission, then BP, P, R q 1 hour while in labor. Temp q 2 hours until rupture of membranes then q 1 hour Vital Signs Call Parameters, 07/26/24 3:46:00 EST, Temp Range: > 38C, Pulse Range: > 120 BPM, Resp Rate Range: <12 or >24, BP Range SBP <100 or >160; DBP <50 or >105, 02 Sat Range: < 95%, Constant Order, Call HO Medications Inpatient Bicitra, 30 mL, Oral, AsDirected, PRN Brethine, 0.25 mg= 0.25 mL, Subcutaneous, AsDirected, PRN Cytotec, 1000 mcg= 5 tab(s), Rectal, Once, PRN Hemabate, 250 mcg= 1 mL, Intramuscular, Once, PRN LR 1,000 mL, 1000 mL, Intravenous LR 500 mL Bolus, 500 mL, IV Bolus, AsDirected, PRN Methergine, 0.2 mg= 1 mL, Intramuscular, Once, PRN Oxytocin for IV (mL/hr) 20 unit(s) + LR Premix Diluent 500 mL Pepcid, 20 mg= 2 mL, IV Push, BID, PRN Pitocin, 20 unit(s)= 2 mL, Intramuscular, Once, PRN tranexamic acid 1 g / 100 mL 0.7% NaCl PMX, 1 gram(s)= 100 mL, IV Piggyback, AsDirected, PRN Xylocaine HCl 1% injectable solution, 100 mg= 10 mL, Perineum, AsDirected, PRN Zofran, 4 mg= 2 mL, IV Push, q4h, PRN Home calcium carbonate-magnesium carbonate 200 mg-400 mg oral tablet, 1 tab(s), Oral, TID ferrous sulfate 325 mg (65 mg elemental iron) oral tablet, 325 mg= 1 tab(s), Oral, BID AD oral tablet, 1 tab(s), Oral, Daily Vitamin D with Minerals oral tablet, 1 tab(s), Oral, qDay Digitally Signed by RAHUL PRICE on 07/26/2024 03:31 PM [facility] 07-26-2024 Note Labor Details Baby A FHR Baseline:135 bpm FHR Baseline Variability:Moderate variability Membranes Membrane Status:S.R.O.M. ROM Date, Time:07/25/2024 21:15 EST Amniotic Fluid Color/Descrip:Clear FHR Accelerations:Present Uterine Uterine Contraction FrequencyQ 4-5 min Uterine Contraction Monitoring MethodExternal toco Cervical Physical Exam Vitals & Measurements T: 36.7 C (Oral) TMIN: 36.0 C (Temporal Artery) TMAX: 36.9 C (Oral) HR: 103 (Monitored) RR: 18 BP: 139/76 SpO2: 98% HT: 163.5 cm WT: 119 kg BMI: 44.52 Called by RN for status update. Pt tolerating labor well breathing with contractions and ambulating in room and alternating between bed and birthing ball with supportive at BS VE at 1030 by RN unchanged [place] at present 2-4/mod/soft rest Cat one tracing Assessment/Plan 40 weeks gestation of continue close obs of efm Continue close obs maternal VS/temp cont exp management pain intervention when/if desires Reveal in 4 hours or prn Orders: carboprost(Hemabate), 250 mcg= 1 mL, Intramuscular, Once, PRN citric acid-sodium citrate(Bicitra), 30 mL, Oral, AsDirected, PRN famotidine(Pepcid), 20 mg= 2 mL, IV Push, BID, PRN Lactated Ringers Infusion(LR 500 mL Bolus), 500 mL, IV Bolus, AsDirected, PRN Lactated Ringers Infusion 1,000 mL(LR 1,000 mL), 1000 mL, Intravenous lidocaine(Xylocaine HCl 1% injectable solution), 100 mg= 10 mL, Perineum, AsDirected, PRN methylergonovine(Methergine), 0.2 mg= 1 mL, Intramuscular, Once, PRN miSOPROStol(Cytotec), 1000 mcg= 5 tab(s), Rectal, Once, PRN ondansetron(Zofran), 4 mg= 2 mL, IV Push, q4h, PRN oxytocin(Pitocin), 20 unit(s)= 2 mL, Intramuscular, Once, PRN oxytocin 20 unit(s) + LR Premix Diluent 500 mL(Oxytocin for IV (mL/hr) 20 unit(s) + LR Premix Diluent 500 mL), Start: 07/26/24 3:46:00 EST, Rate: 500 mL/hr, 07/26/24 3:46:00 EST terbutaline(Brethine), 0.25 mg= 0.25 mL, Subcutaneous, AsDirected, PRN tranexamic acid(tranexamic acid 1 g / 100 mL 0.7% NaCl PMX), 1 gram(s)= 100 mL, IV Piggyback, AsDirected, PRN Admit to Inpatient, 07/26/24 4:07:00 EST, Level of Care: Obstetrics, Reason for Admission: See History & Physical, Expected Length of Stay: No More Than 96 Hours, Constant Order Ambulate, 07/26/24 3:46:00 EST, PRN Order, as tolerated Code Status, 07/26/24 4:07:00 EST, Full Code, Constant Order Consult to Anesthesia, 07/26/24 3:46:00 EST, not specified, As needed for epidural insertion or for delivery Diet Order, 07/26/24 3:46:00 EST, Start Meal: Next meal, Clear Liquid Diet, Constant Order Epidural Anesthesia, 07/26/24 3:46:00 EST, PRN order, With patient consent, when patient requests Monitoring, 07/26/24 3:46:00 EST, Continuous Intake and Output, 07/26/24 3:46:00 EST, q8hr, while IV running IV Catheter Insertion/Care, 07/26/24 3:46:00 EST, IV Care: q4h, Rotate when clinically indicated & q7day drsg change Oxygen Administration (LDRP)(Oxygen Administration (OB)), 07/26/24 3:46:00 EST, Non-Rebreather Mask, 10 LPM, PRN Order, Adjust flow rate to maintain proper inflation Prn Adapter, 07/26/24 3:46:00 EST, Once Rapid Plasma Reagin Test(RPR), 07/26/24 3:46:00 EST, URGENT (collect within 2 hrs), Blood, Once, Nurse Collect, Stop date 07/26/24 3:47:00 EST Straight Cath, 07/26/24 3:46:00 EST, PRN Order Urinary Catheter Insertion/Care, 07/26/24 3:46:00 EST, Do Not Remove Urinary Catheter, Undergoing/Undergone Pelvic procedure, to gravity drainage, Cath Care: Daily, Following epidural insertion, PRN Order Vital Signs, 07/26/24 3:46:00 EST, 07/26/24 3:46:00 EST, On admission, then BP, P, R q 1 hour while in labor. Temp q 2 hours until rupture of membranes then q 1 hour Vital Signs Call Parameters, 07/26/24 3:46:00 EST, Temp Range: > 38C, Pulse Range: > 120 BPM, Resp Rate Range: <12 or >24, BP Range SBP <100 or >160; DBP <50 or >105, 02 Sat Range: < 95%, Constant Order, Call HO Medications Inpatient Bicitra, 30 mL, Oral, AsDirected, PRN Brethine, 0.25 mg= 0.25 mL, Subcutaneous, AsDirected, PRN Cytotec, 1000 mcg= 5 tab(s), Rectal, Once, PRN Hemabate, 250 mcg= 1 mL, Intramuscular, Once, PRN LR 1,000 mL, 1000 mL, Intravenous LR 500 mL Bolus, 500 mL, IV Bolus, AsDirected, PRN Methergine, 0.2 mg= 1 mL, Intramuscular, Once, PRN Oxytocin for IV (mL/hr) 20 unit(s) + LR Premix Diluent 500 mL Pepcid, 20 mg= 2 mL, IV Push, BID, PRN Pitocin, 20 unit(s)= 2 mL, Intramuscular, Once, PRN tranexamic acid 1 g / 100 mL 0.7% NaCl PMX, 1 gram(s)= 100 mL, IV Piggyback, AsDirected, PRN Xylocaine HCl 1% injectable solution, 100 mg= 10 mL, Perineum, AsDirected, PRN Zofran, 4 mg= 2 mL, IV Push, q4h, PRN Home calcium carbonate-magnesium carbonate 200 mg-400 mg oral tablet, 1 tab(s), Oral, TID ferrous sulfate 325 mg (65 mg elemental iron) oral tablet, 325 mg= 1 tab(s), Oral, BID AD oral tablet, 1 tab(s), Oral, Daily Vitamin D with Minerals oral tablet, 1 tab(s), Oral, qDay Digitally Signed by RAHUL PRICE on 07/26/2024 03:31 PM [facility] 07-26-2024 Note Labor Details Baby A FHR Baseline:135 bpm FHR Baseline Variability:Moderate variability Membranes Membrane Status:S.R.O.M. ROM Date, Time:07/25/2024 21:15 EST Amniotic Fluid Color/Descrip:Clear FHR Accelerations:Present Uterine Uterine Contraction FrequencyQ 4-5 min Uterine Contraction Monitoring MethodExternal toco Cervical Physical Exam Vitals & Measurements T: 36.7 C (Oral) TMIN: 36.0 C (Temporal Artery) TMAX: 36.9 C (Oral) HR: 103 (Monitored) RR: 18 BP: 139/76 SpO2: 98% HT: 163.5 cm WT: 119 kg BMI: 44.52 Called by RN for status update. Pt tolerating labor well breathing with contractions and ambulating in room and alternating between bed and birthing ball with supportive at BS VE at 1030 by RN unchanged [place] at present 2-4/mod/soft rest Cat one tracing Assessment/Plan 40 weeks gestation of continue close obs of efm Continue close obs maternal VS/temp cont exp management pain intervention when/if desires Reveal in 4 hours or prn Orders: carboprost(Hemabate), 250 mcg= 1 mL, Intramuscular, Once, PRN citric acid-sodium citrate(Bicitra), 30 mL, Oral, AsDirected, PRN famotidine(Pepcid), 20 mg= 2 mL, IV Push, BID, PRN Lactated Ringers Infusion(LR 500 mL Bolus), 500 mL, IV Bolus, AsDirected, PRN Lactated Ringers Infusion 1,000 mL(LR 1,000 mL), 1000 mL, Intravenous lidocaine(Xylocaine HCl 1% injectable solution), 100 mg= 10 mL, Perineum, AsDirected, PRN methylergonovine(Methergine), 0.2 mg= 1 mL, Intramuscular, Once, PRN miSOPROStol(Cytotec), 1000 mcg= 5 tab(s), Rectal, Once, PRN ondansetron(Zofran), 4 mg= 2 mL, IV Push, q4h, PRN oxytocin(Pitocin), 20 unit(s)= 2 mL, Intramuscular, Once, PRN oxytocin 20 unit(s) + LR Premix Diluent 500 mL(Oxytocin for IV (mL/hr) 20 unit(s) + LR Premix Diluent 500 mL), Start: 07/26/24 3:46:00 EST, Rate: 500 mL/hr, 07/26/24 3:46:00 EST terbutaline(Brethine), 0.25 mg= 0.25 mL, Subcutaneous, AsDirected, PRN tranexamic acid(tranexamic acid 1 g / 100 mL 0.7% NaCl PMX), 1 gram(s)= 100 mL, IV Piggyback, AsDirected, PRN Admit to Inpatient, 07/26/24 4:07:00 EST, Level of Care: Obstetrics, Reason for Admission: See History & Physical, Expected Length of Stay: No More Than 96 Hours, Constant Order Ambulate, 07/26/24 3:46:00 EST, PRN Order, as tolerated Code Status, 07/26/24 4:07:00 EST, Full Code, Constant Order Consult to Anesthesia, 07/26/24 3:46:00 EST, not specified, As needed for epidural insertion or for delivery Diet Order, 07/26/24 3:46:00 EST, Start Meal: Next meal, Clear Liquid Diet, Constant Order Epidural Anesthesia, 07/26/24 3:46:00 EST, PRN order, With patient consent, when patient requests Monitoring, 07/26/24 3:46:00 EST, Continuous Intake and Output, 07/26/24 3:46:00 EST, q8hr, while IV running IV Catheter Insertion/Care, 07/26/24 3:46:00 EST, IV Care: q4h, Rotate when clinically indicated & q7day drsg change Oxygen Administration (LDRP)(Oxygen Administration (OB)), 07/26/24 3:46:00 EST, Non-Rebreather Mask, 10 LPM, PRN Order, Adjust flow rate to maintain proper inflation Prn Adapter, 07/26/24 3:46:00 EST, Once Rapid Plasma Reagin Test(RPR), 07/26/24 3:46:00 EST, URGENT (collect within 2 hrs), Blood, Once, Nurse Collect, Stop date 07/26/24 3:47:00 EST Straight Cath, 07/26/24 3:46:00 EST, PRN Order Urinary Catheter Insertion/Care, 07/26/24 3:46:00 EST, Do Not Remove Urinary Catheter, Undergoing/Undergone Pelvic procedure, to gravity drainage, Cath Care: Daily, Following epidural insertion, PRN Order Vital Signs, 07/26/24 3:46:00 EST, 07/26/24 3:46:00 EST, On admission, then BP, P, R q 1 hour while in labor. Temp q 2 hours until rupture of membranes then q 1 hour Vital Signs Call Parameters, 07/26/24 3:46:00 EST, Temp Range: > 38C, Pulse Range: > 120 BPM, Resp Rate Range: <12 or >24, BP Range SBP <100 or >160; DBP <50 or >105, 02 Sat Range: < 95%, Constant Order, Call HO Medications Inpatient Bicitra, 30 mL, Oral, AsDirected, PRN Brethine, 0.25 mg= 0.25 mL, Subcutaneous, AsDirected, PRN Cytotec, 1000 mcg= 5 tab(s), Rectal, Once, PRN Hemabate, 250 mcg= 1 mL, Intramuscular, Once, PRN LR 1,000 mL, 1000 mL, Intravenous LR 500 mL Bolus, 500 mL, IV Bolus, AsDirected, PRN Methergine, 0.2 mg= 1 mL, Intramuscular, Once, PRN Oxytocin for IV (mL/hr) 20 unit(s) + LR Premix Diluent 500 mL Pepcid, 20 mg= 2 mL, IV Push, BID, PRN Pitocin, 20 unit(s)= 2 mL, Intramuscular, Once, PRN tranexamic acid 1 g / 100 mL 0.7% NaCl PMX, 1 gram(s)= 100 mL, IV Piggyback, AsDirected, PRN Xylocaine HCl 1% injectable solution, 100 mg= 10 mL, Perineum, AsDirected, PRN Zofran, 4 mg= 2 mL, IV Push, q4h, PRN Home calcium carbonate-magnesium carbonate 200 mg-400 mg oral tablet, 1 tab(s), Oral, TID ferrous sulfate 325 mg (65 mg elemental iron) oral tablet, 325 mg= 1 tab(s), Oral, BID AD oral tablet, 1 tab(s), Oral, Daily Vitamin D with Minerals oral tablet, 1 tab(s), Oral, qDay Digitally Signed by RAHUL PRICE on 07/26/2024 03:31 PM [facility] 07-26-2024 Evaluation + Plan note Extrac linda from: Title:OB Admission H&P Author:RAHUL PRICE Date:07/26/24 1. 40 weeks gestation of pre gnancy Admit to Routine Labor orders C-EFM Clear liquids D/W Dr Boo 2. Rh negative, maternal Screen on admission Cord blood at delivery 3. Macrosomia affecting management of mother C-EFM Orders: carboprost(Hemabate), 250 mcg= 1 mL, Intramuscular, Once, PRN citric acid-sodium citrate(Bicitra), 30 mL, Oral, AsDirected, PRN Lactated Ringers Infusion(LR 500 mL Bolus), 500 mL, IV Bolus, AsDirected, PRN Lactated Ringers Infusion 1,000 mL(LR 1,000 mL), 1000 mL, Intravenous lidocaine(Xylocaine HCl 1% injectable solution), 100 mg= 10 mL, Perineum, AsDirected, PRN methylergonovine(Methergine), 0.2 mg= 1 mL, Intramuscular, Once, PRN miSOPROStol(Cytotec), 1000 mcg= 5 tab(s), Rectal, Once, PRN ondansetron(Zofran), 4 mg= 2 mL, IV Push, q4h, PRN oxytocin(Pitocin), 20 unit(s)= 2 mL, Intramuscular, Once, PRN oxytocin 20 unit(s) + LR Premix Diluent 500 mL(Oxytocin for IV (mL/hr) 20 unit(s) + LR Premix Diluent 500 mL), Start: 07/26/24 3:46:00 EST, Rate: 500 mL/hr, 07/26/24 3:46:00 EST terbutaline(Brethine), 0.25 mg= 0.25 mL, Subcutaneous, AsDirected, PRN tranexamic acid(tranexamic acid 1 g / 100 mL 0.7% NaCl PMX), 1 gram(s)= 100 mL, IV Piggyback, AsDirected, PRN Admit to Inpatient, 07/26/24 4:07:00 EST, Level of Care: Obstetrics, Reason for Admission: See History & Physical, Expected Length of Stay: No More Than 96 Hours, Constant Order Ambulate, 07/26/24 3:46:00 EST, PRN Order, as tolerated Code Status, 07/26/24 4:07:00 EST, Full Code, Constant Order Consult to Anesthesia, 07/26/24 3:46:00 EST, not specified, As needed for epidural insertion or for delivery Diet Order, 07/26/24 3:46:00 EST, Start Meal: Next meal, Clear Liquid Diet, Constant Order Epidural Anesthesia, 07/26/24 3:46:00 EST, PRN order, With patient consent, when patient requests Monitoring, 07/26/24 3:46:00 EST, Continuous Intake and Output, 07/26/24 3:46:00 EST, q8hr, while IV running IV Catheter Insertion/Care, 07/26/24 3:46:00 EST, IV Care: q4h, Rotate when clinically indicated & q7day drsg change Oxygen Administration (LDRP)(Oxygen Administration (OB)), 07/26/24 3:46:00 EST, Non-Rebreather Mask, 10 LPM, PRN Order, Adjust flow rate to maintain proper inflation Prn Adapter, 07/26/24 3:46:00 EST, Once Rapid Plasma Reagin Test(RPR), 07/26/24 3:46:00 EST, URGENT (collect within 2 hrs), Blood, Once, Nurse Collect, Stop date 07/26/24 3:47:00 EST Straight Cath, 07/26/24 3:46:00 EST, PRN Order Type and Screen (AO), 07/26/24 3:46:00 EST, URGENT (collect within 2 hrs), Blood, Once, Nurse Collect, Stop date 07/26/24 3:46:00 EST Urinary Catheter Insertion/Care, 07/26/24 3:46:00 EST, Do Not Remove Urinary Catheter, Undergoing/Undergone Pelvic procedure, to gravity drainage, Cath Care: Daily, Following epidural insertion, PRN Order Vital Signs, 07/26/24 3:46:00 EST, 07/26/24 3:46:00 EST, On admission, then BP, P, R q 1 hour while in labor. Temp q 2 hours until rupture of membranes then q 1 hour Vital Signs Call Parameters, 07/26/24 3:46:00 EST, Temp Range: > 38C, Pulse Range: > 120 BPM, Resp Rate Range: <12 or >24, BP Range SBP <100 or >160; DBP <50 or >105, 02 Sat Range: < 95%, Constant Order, Call [facility] 12-14-2024 Note History of Present Illness 36 G1 at 40.5 present with co painful regular contractions, SROM at home around 2114( 07/25). Patient had early and consistent PNC with MYOBGYN. LUDA 07/21 by 7 week us. PNC c/b advanced maternal age with abn NIPT, ? trisomy screen ( followed at [facility] and resolved as no likely no genetic condition present), maternal obesity , RH negative, suspected macrosomia w/ EFW and AC >90%, glucose intolerance with failed one hour and passed 3 hour. On admission reports good FM, cont leakage of clear fluid, no VB No monzon, changes in vision or other complaints outside of labor related concerns OB History History (0,0,0,0) No previous pregnancies history have been recorded Review of Systems allneg Labor Details Baby A FHR Baseline:135 bpm FHR Baseline Variability:Moderate variability FHR Accelerations:Present Uterine Uterine Contraction Frequency2-4 Uterine Contraction Monitoring MethodExternal toco Physical Exam Vitals & Measurements T: 36.4 C (Oral) TMIN: 36 C (Temporal Artery) TMAX: 36.4 C (Oral) HR: 87 (Monitored) RR: 18 BP: 143/72 HT: 163.5 cm WT: 119 kg BMI: 44.52 Pain: C/o abdominal pain/tightness every 2-3 minutes. Mild grimacing with each contraction. Mood: Alert and oriented x4, Calm and cooperative. Resp: Even and nonlabored. Clear to auscultation bilaterally CV: Regular rate Abd: gravid, soft at rest, firm with contractions VE: 1/80/-1 LE: No edema, DTRs 2+, no clonus Neuro: Markus Monzon, changes in vision or RUQ pain Labs Blood Type, External: O negative Rubella, External: Immune HIV Antibodies, External: Negative Group B Strep, External: Negative Group B Strep Date Performed: 06/25/24 Hepatitis B, External: Negative RPR, External: Nonreactive Diagnostics 07/21 Growth Cephalic JEAN CARLOS 10 HC: 345.7 mm G. Age: 40w 0d 54 %tile AC: 365 mm G. Age: 40w 3d 90 %tile EFW: 4047 gm. 8 lb 15oz> 90 %Tile Assessment/Plan 1. 40 weeks gestation of Admit to Routine Labor orders C-EFM Clear liquids D/W Dr Boo 2. Rh negative, maternal Screen on admission Cord blood at delivery 3. Macrosomia affecting management of mother C-EFM Orders: carboprost(Hemabate), 250 mcg= 1 mL, Intramuscular, Once, PRN citric acid-sodium citrate(Bicitra), 30 mL, Oral, AsDirected, PRN Lactated Ringers Infusion(LR 500 mL Bolus), 500 mL, IV Bolus, AsDirected, PRN Lactated Ringers Infusion 1,000 mL(LR 1,000 mL), 1000 mL, Intravenous lidocaine(Xylocaine HCl 1% injectable solution), 100 mg= 10 mL, Perineum, AsDirected, PRN methylergonovine(Methergine), 0.2 mg= 1 mL, Intramuscular, Once, PRN miSOPROStol(Cytotec), 1000 mcg= 5 tab(s), Rectal, Once, PRN ondansetron(Zofran), 4 mg= 2 mL, IV Push, q4h, PRN oxytocin(Pitocin), 20 unit(s)= 2 mL, Intramuscular, Once, PRN oxytocin 20 unit(s) + LR Premix Diluent 500 mL(Oxytocin for IV (mL/hr) 20 unit(s) + LR Premix Diluent 500 mL), Start: 07/26/24 3:46:00 EST, Rate: 500 mL/hr, 07/26/24 3:46:00 EST terbutaline(Brethine), 0.25 mg= 0.25 mL, Subcutaneous, AsDirected, PRN tranexamic acid(tranexamic acid 1 g / 100 mL 0.7% NaCl PMX), 1 gram(s)= 100 mL, IV Piggyback, AsDirected, PRN Admit to Inpatient, 07/26/24 4:07:00 EST, Level of Care: Obstetrics, Reason for Admission: See History & Physical, Expected Length of Stay: No More Than 96 Hours, Constant Order Ambulate, 07/26/24 3:46:00 EST, PRN Order, as tolerated Code Status, 07/26/24 4:07:00 EST, Full Code, Constant Order Consult to Anesthesia, 07/26/24 3:46:00 EST, not specified, As needed for epidural insertion or forVBAC delivery Diet Order, 07/26/24 3:46:00 EST, Start Meal: Next meal, Clear Liquid Diet, Constant Order Epidural Anesthesia, 07/26/24 3:46:00 EST, PRN order, With patient consent, when patient requests Monitoring, 07/26/24 3:46:00 EST, Continuous Intake and Output, 07/26/24 3:46:00 EST, q8hr, while IV running IV Catheter Insertion/Care, 07/26/24 3:46:00 EST, IV Care: q4h, Rotate when clinically indicated & q7day drsg change Oxygen Administration (LDRP)(Oxygen Administration (OB)), 07/26/24 3:46:00 EST, Non-Rebreather Mask, 10 LPM, PRN Order, Adjust flow rate to maintain proper inflation Prn Adapter, 07/26/24 3:46:00 EST, Once Rapid Plasma Reagin Test(RPR), 07/26/24 3:46:00 EST, URGENT (collect within 2 hrs), Blood, Once, Nurse Collect, Stop date 07/26/24 3:47:00 EST Straight Cath, 07/26/24 3:46:00 EST, PRN Order Type and Screen (AO), 07/26/24 3:46:00 EST, URGENT (collect within 2 hrs), Blood, Once, Nurse Collect, Stop date 07/26/24 3:46:00 EST Urinary Catheter Insertion/Care, 07/26/24 3:46:00 EST, Do Not Remove Urinary Catheter, Undergoing/Undergone Pelvic procedure, to gravity drainage, Cath Care: Daily, Following epidural insertion, PRN Order Vital Signs, 07/26/24 3:46:00 EST, 07/26/24 3:46:00 EST, On admission, then BP, P, R q 1 hour whilein labor. Temp q 2 hours until rupture of membranes then q 1 hour Vital Signs Call Parameters, 07/26/24 3:46:00 EST, Temp Range: > 38C, Pulse Range: > 120 BPM,Resp Rate Range: <12 or >24, BP Range SBP <100 or >160; DBP <50 or >105, 02 Sat Range: < 95%, Constant Order, Call [facility] Problem List/Past Medical History Ongoing Procedure/Surgical History Uterine polyp Medications Inpatient Bicitra, 30 mL, Oral, AsDirected, PRN Brethine, 0.25 mg= 0.25 mL, Subcutaneous, AsDirected, PRN Cytotec, 1000 mcg= 5 tab(s), Rectal, Once, PRN Hemabate, 250 mcg= 1 mL, Intramuscular, Once, PRN LR 1,000 mL, 1000 mL, Intravenous LR 500 mL Bolus, 500 mL, IV Bolus, AsDirected, PRN Methergine, 0.2 mg= 1 mL, Intramuscular, Once, PRN Oxytocin for IV (mL/hr) 20 unit(s) + LR Premix Diluent 500 mL Pitocin, 20 unit(s)= 2 mL, Intramuscular, Once, PRN tranexamic acid 1 g / 100 mL 0.7% NaCl PMX, 1 gram(s)= 100 mL, IV Piggyback, AsDirected, PRN Xylocaine HCl 1% injectable solution, 100 mg= 10 mL, Perineum, AsDirected, PRN Zofran, 4 mg= 2 mL, IV Push, q4h, PRN Home No active home medications Allergies NKA Social History Alcohol Use: Never., 07/26/2024 Substance Abuse Use: Never., 07/26/2024 Tobacco Nicotine Use: Never (less than 100 in lifetime)., 07/26/2024 Digitally Signed by RAHUL PRICE on 07/26/2024 05:36 AM [facility]05-29-2024 Telephone encounter Note* Telephone Encounter - Cora Torres - 01/09/2024 9:22 AM EDT [phone] Miscellaneous Notes* Telephone Encounter - Cora Torres - 01/09/2024 9:22 AM EDT Referral and records faxed * Telephone Encounter - Brenda Mcguire - 01/09/2024 8:14 AM EDT Name of Caller: Kamryn at [facility] Contact Reason: Kamryn called in to state that they received a referral for Joanna for dermatology but thatthey did not receive a demographics page for her. Kamryn is requesting that it get faxed to the number above. Office Name: [facility] documented in this encounterSBer[facility] [phone] Telephone encounter Note* Telephone Encounter - Brenda Mcguire - 01/09/2024 8:14 AM EDT Name of Caller: Kamryn at [facility] Contact Reason: Kamryn called in to state that they received a referral for Joanna for dermatology but thatthey did not receive a demographics page for her. Kamryn is requesting that it get faxed to the number above. Office Name: [facility] [id number] History of Present illness Narrative* Eusebia Parker DO - 01/03/2024 1:40 PM EDT Images from the original note were not included. [facility] [address] [facility] [id number] Visit type: Established Patient Reason for Visit: Annual Exam Assessment and Plan Diagnoses and all orders for this visit: Well adult exam Encouraged avoidance of tobacco and alcohol, safe sexual practice. Healthy diet with plenty of fruits, vegetables, whole grains, and lean proteins. Exercise 3-5 times per week for 30-45 minutes. Wearseatbelts. Wear sunscreen. Reviewed age appropriate screening tests. Screening exam for skin cancer - Ambulatory referral to Dermatology; Future Elevated LFTs - Hepatic function panel; Future No follow-ups on file. Subjective HPI Joanna is a 33 yo WF who presents for a well adult exam Mom just diagnosed with colon cancer with mets to liver at age 72 Had lab work done at work - done in sep - liver abnormality Had a mole that was concerning She is Went off of wellbutrin Due for pap Review of Systems Constitutional: Negative for appetite change, chills, fatigue and fever. HENT: Negative for congestion, ear pain, hearing loss, postnasal drip, sore throat and trouble swallowing. Eyes: Negative for discharge, itching and visual disturbance. Respiratory: Negative for cough, shortness of breath and wheezing. Cardiovascular: Negative for chest pain, palpitations and leg swelling. Gastrointestinal: Negative for abdominal pain, constipation, diarrhea, nausea and vomiting. Endocrine: Negative for cold intolerance, heat intolerance, polydipsia, polyphagia and polyuria. Genitourinary: Negative for difficulty urinating, frequency, urgency, vaginal bleeding, vaginal discharge and vaginal pain. Musculoskeletal: Negative for arthralgias, back pain, joint swelling and myalgias. Skin: Negative for color change, rash and wound. Neurological: Negative for dizziness, tremors, seizures, speech difficulty, weakness, numbness and headaches. Hematological: Negative for adenopathy. Does not bruise/bleed easily. Psychiatric/Behavioral: Negative for agitation, decreased concentration, dysphoric mood and sleep disturbance. The patient is not nervous/anxious. No Known Allergies Outpatient Medications Prior to Visit Medication Sig Dispense Refill Magnesium 125 MG capsule Multiple Vitamin (MULTI-VITAMIN DAILY PO) Take by mouth. buPROPion XL (Wellbutrin XL) 150 MG 24 hr tablet Take 1 tablet (150 mg) by mouth every morning. Do not crush, chew, or split. 30 tablet 0 traZODone (Desyrel) 50 MG tablet Take 1 tablet (50 mg) by mouth Nightly. 90 tablet 2 No facility-administered medications prior to visit. Past Medical History: Diagnosis Date Anxiety 06/2021 Depression 06/2021 10/15/23 Social History Socioeconomic History Marital status: Tobacco Use Smoking status: Never Smokeless tobacco: Never Substance and Sexual Activity Alcohol use: Not Currently Alcohol/week: 2.0 standard drinks of alcohol Drug use: No Sexual activity: Yes Partners: Male control/protection: Condom Male Comment: Currently Past Surgical History: Procedure Laterality Date GYNECOLOGIC CRYOSURGERY 02/15/2012 POLYPECTOMY 2011 hysteroscopy WISDOM TOOTH EXTRACTION Past Surgical History: Procedure Laterality Date GYNECOLOGIC CRYOSURGERY 02/15/2012 POLYPECTOMY 2011 hysteroscopy WISDOM TOOTH EXTRACTION Family History Problem Relation Name Age of Onset Pneumonia Father Dominic COPD Father Dominic Hypertension Father Dominic No Known Problems Brother Colon cancer Mother [place] Cancer Mother Juana Cancer Maternal Grandmother Grandma Anika 50 Hodgkins Lymphoma Diabetes Father's Brother Uncle Richard No Known Problems Sister Objective BP 124/74 Pulse 90 Ht 5' 4 (1.626 m) Wt 229 lb (104 kg) LMP 10/15/2023 (Approximate) Comment: Patient is 12 weeks as of today SpO2 97% BMI 39.31 kg/m Physical Exam Vitals and nursing note reviewed. Constitutional: General: She is not in acute distress. Appearance: Normal appearance. She is not ill-appearing. HENT: Head: Normocephalic and atraumatic. Right Ear: Tympanic membrane, ear canal and external ear normal. Left Ear: Tympanic membrane, ear canal and external ear normal. Nose: Nose normal. Mouth/Throat: Mouth: Mucous membranes are dry. Eyes: Extraocular Movements: Extraocular movements intact. Conjunctiva/sclera: Conjunctivae normal. Pupils: Pupils are equal, round, and reactive to light. Cardiovascular: Rate and Rhythm: Normal rate and regular rhythm. Heart sounds: No murmur heard. No friction rub. Pulmonary: Effort: Pulmonary effort is normal. No respiratory distress. Breath sounds: Normal breath sounds. No stridor. No wheezing, rhonchi or rales. Chest: Chest wall: No tenderness. Abdominal: General: Abdomen is flat. Bowel sounds are normal. There is no distension. Palpations: Abdomen is soft. There is no mass. Tenderness: There is no abdominal tenderness. There is no guarding or rebound. Hernia: No hernia is present. Musculoskeletal: General: Normal range of motion. Cervical back: Normal range of motion and neck supple. Right lower leg: No edema. Left lower leg: No edema. Skin: General: Skin is warm and dry. Neurological: General: No focal deficit present. Mental Status: She is alert and oriented to person, place, and time. Psychiatric: Mood and Affect: Mood normal. Behavior: Behavior normal. Thought Content: Thought content normal. Judgment: Judgment normal. Data Reviewed POCT: Labs: Imaging/Testing: Chart Clean Up: Medications Discontinued During This Encounter Medication Reason buPROPion XL (Wellbutrin XL) 150 MG 24 hr tablet Med list cleanup traZODone (Desyrel) 50 MG tablet Med list cleanup Eusebia Parker DO 01/17/2024 12:16 PM documented in this [facility]04-24-2023 Telephone encounter Note* Telephone Encounter - Chuyita Russell MA - 12/04/2022 4:08 PM EDT Last 07.10.22 Next 12.28.22 [id number] Miscellaneous Notes* Telephone Encounter - Chuyita Russell MA - 12/04/2022 4:08 PM EDT Last 07.10.22 Next 12.28.22 documented in this [facility]03-23-2023 Miscellaneous Notes* Telephone Encounter - Chuyita Russell MA - 11/02/2022 10:20 AM EDT AZIZA 06.30.22 documented in this [facility]03-23-2023 Telephone encounter Note* Telephone Encounter - Chuyita Russell MA - 11/02/2022 10:20 AM EDT AZIZA 11.18.22 [facility] No data available for this section [facility] Evaluation note* Diagnosis Moderate episode of recurrent major depressive disorder (HCC) documented in this encounter [facility] note* Diagnosis Psychophysiological insomnia Persistent disorder of initiating or maintaining sleep documented in this encounter [facility] note* Diagnosis Well adult exam- Primary Routine general medical examination at a health care facility Screening exam for skin cancer Screening for malignant neoplasm of the skin Elevated LFTs Other abnormal blood chemistry documented in this encounter [facility] note* Diagnosis Arthralgia of left temporomandibular joint- Primary Arthralgia of temporomandibular joint [facility] Diagnosis Non-recurrent acute suppurative otitis media of left ear without spontaneous rupture of tympanic membrane- Primary [facility] No data available for this section [facility] Progress note No data available for this section [facility] Reason for referral (narrative)* Consultation (Routine) - Pending Review Specialty Diagnoses / Procedures Referred By Jeremiah pineda Referred To Contact Dermatology Diagnoses Screening exam for skin cancer Procedures [place] OFFICE/OUTPATIENT [facility] 60 MINUTES Eusebia Parker DO [address] [place] [address] Esthela Koenig MD [facility] [address] [address] Referral ID Status Reason Start Date Expiration Date Visits Requested Visits Authorized [id number] Pending Review Specialty Services Required 01/03/2024 01/02/2025 1 1 [facility] Summary Purpose Family History No Family History Records Found Advance Directives No Advanced Directives Records FoundNo Advanced Directives Records FoundNo Advanced Directives Records FoundNo Advanced Directives Records FoundNo Advanced Directives Records FoundNo Advanced Directives Records Found Additional Source Comments Source Comments (unrecognize d section and content) In the event this informatio n is protected by the Federal Confidentiality of Alcohol and Drug Abuse Patient Records regulations: The Federal rules restrict any use of the information to criminally investigate or prosecute any alcohol or drug abuse patient.[facility] the event this information is protected by the Federal Confidentiality of Alcohol and Drug Abuse Patient Records regulations: The Federal rules restrict any use of the information to criminally investigate or prosecute any alcohol or drug abuse patient.[facility] Reason for Visit (unrecogniz ed section and content) Reason Comments Med Refill Reason Comments Annual Exam Reason Onset Date Comments Demographics page 01/09/2024 Reason Comments Ear Pain Left ear pain x 4 da ys Reason Comments Earache Reason Onset Date Comments Earache 03/23/2025 Care Teams (unrecognized sec tion and content) Overcoiler Relationship Specialty Start Date End Date Eusebia Parker DO [address] [place] [address] PCP - General Internal Medicine 06/01/22 Overcoiler Relationship Specialty Start Date End Date Eusebia Parker DO [address] [place] [address] [address] [place] [address] PCP - General Internal Medicine 06/01/22 Overcoiler Relationship Specialty Start Date End Date Eusebia Parker DO [address] [place] [id number] PCP - General Internal Medicine 06/01/22 Overcoiler Relationship Specialty Start Date End Date Eusebia Parker DO [address] [place] [id number] PCP - General Family Medicine 03/11/25 Overcoiler Relationship Specialty Start Date End Date Eusebia Parker DO [address] [place] [id number] PCP - General Internal Medicine 06/01/22 Overcoiler Relationship Specialty Start Date End Date Eusebia Parker DO [address] [place] [id number] PCP - General Internal Medicine 06/01/22 INFORMATION SOURCE (unrecogn ized section and content) DATE CREATED AUTHOR 12/09/2023 Counts include 234 beds at the [facility] ([place]) DATE CREATED AUTHOR AUTHOR'S ORGANIZ ATION 05/31/2024 [facility] DATE CREATED AUTHOR AUTHOR'S ORGANIZ ATION 08/10/2024 [facility] DATE CREATED AUTHOR AUTHOR'S ORGANIZ ATION 08/22/2024 [facility] DATE CREATED AUTHOR AUTHOR'S ORGANIZ ATION 03/14/2025 [facility] DATE CREATED AUTHOR AUTHOR'S ORGANIZ ATION 03/28/2025 [facility] FOR RECORDS PERTAINING TO PATIENTS WHO ARE OR HAVE BEEN ENROLLED IN A CHEMICAL DEPENDENCY/SUBSTANCEABUSE PROGRAM, SOME INFORMATION MAY BE OMITTED. This clinical summary was aggregated from multiple sources. Caution should be exercised in using it in the provision of clinical care. This summary normalizes information from multiple sources, and as a consequence, information in this document may materially change the coding, format and clinical context of patient data. In addition, data may be omitted in some cases. CLINICAL DECISIONS SHOULD BE BASED ON THE PRIMARY CLINICAL RECORDS. [facility] [employer] [facility] provides no warranty or guarantee of the accuracy or completeness of information in this document.
[2025-05-08 09:56] LABS: Anion Gap 13 (5-15); BUN 13 mg/dL (4-19); BUN/Creat Ratio 14.8 RATIO (10-20); Calcium,Total 8.8 mg/dL (7.6-11.0); Carbon Dioxide 20.8 mmol/L (21.0-32.0); Chloride 105 mmol/L (98-108); Cholesterol 184 mg/dL (<=200); Glucose 102 mg/dL (70-99); Low Density Lipoprotein Calc. 74 mg/dL; Potassium 4.2 mmol/L (3.3-5.1); Triglycerides 293 mg/dL; Very Low Density Lipoprotein 59 mg/dL (5-40); cholesterol:hdl ratio screen 3.60
== END | disposition home or self-care (01) ==
PROVIDERS: Referring Provider Family Medicine; Visit Provider Family Medicine
DX: Z13.1 Encounter for screening for diabetes mellitus (principal); Z13.220 Encounter for screening for lipoid disorders
CPT/HCPCS: 80048; 80061; 83036